=== PATIENT | female | born 1930 | race Caucasian/White ===

== ENCOUNTER → 2018-04-20 | Day surgery (SDC) | payer OTHER ==
[2018-04-16 15:55] LABS: BASOPHILS % 0.4 % (0.0-1.0); EOSINOPHILS # (AUTO) 0.2 (0.0-0.4); EOSINOPHILS % 2.1 % (0.0-6.0); HEMATOCRIT 32.5 % (34.2-44.1); HEMOGLOBIN 10.6 g/dL (12.0-16.0); LYMPHOCYTES % 25.8 % (18.0-39.1); MEAN CORPUSCULAR HEMOGLOBIN 32.8 pg (28-32); MEAN CORPUSCULAR HGB CONC 32.6 g/dL (31-35); MEAN CORPUSCULAR VOLUME 100.6 fL (81-99); MONOCYTES # (AUTO) 0.8 (0.2-0.8); MONOCYTES % 10.6 % (4.4-11.3); NEUTROPHILS # (AUTO) 4.6 (2.1-6.9); NEUTROPHILS % 60.8 % (38.7-80.0); PLATELET COUNT 255 x10e3/uL (140-360); RED BLOOD COUNT 3.23 x10e6/uL (3.6-5.1); RED CELL DISTRIBUTION WIDTH 13.8 % (11.7-14.4)
--- NOTE | 2018-04-16 16:21 | Diagnostic Imaging Report ---
PROCEDURE: Frontal and lateral views of the chest. COMPARISON: None. INDICATIONS: PREOP CXR FINDINGS: Lines/tubes: Right chest wall pacemaker with leads overlying the right atrium and right ventricular apex. Lungs: The lungs are well inflated and clear. There is no evidence of pneumonia or pulmonary edema. A 9 mm sharply defined opacity projected over the left lung may represent a calcified granuloma or a skin lesion. A surgical clip is projected over the left axillary region Pleura: There is no pleural effusion or pneumothorax. Heart and mediastinum: Normal heart size. Mild tortuosity of the thoracic aorta. Bones: Multilevel spondylosis of the thoracic spine. Cervical fusion hardware is partially visualized. Severe degenerative changes of the shoulders, right greater than left. IMPRESSION: No evidence of infection or edema. 9 mm opacity projected over the left midlung probably represents a benign granuloma or skin lesion. Consider follow up radiographs in 3-6 months to ensure stability. Dictated by: Gaudencio Mcgrath M.D. on 04/16/2018 at 16:25 Electronically approved by: Gaudencio Mcgrath M.D. on 04/16/2018 at 16:25
[~2018-04-20] MED LIST: AMLODIPINE BES2.5 MG PO; ASPIRIN81 MG PO; BIOTIN2500 MCG PO; BUPIVACAINE HCL 0.5% INJ 30 ML VIAL INJ ONE; CEFAZOLIN SOD 1 GM VIAL ONE; CENTRUM SILVER1 EAC3 PO; DEXAMETHASONE SOD PHOS INJ 4 MG/ML VIAL ONE; FENTANYL CITRATE/PF 100MCG/2 ML INJ ONE; LEVOTHYROXINE50 MCG PO; LIDOCAINE HCL 2% LOCAL INJ 5 ML SDV VIAL INJ ONE; LYRICA50 MG PO; MUPIROCIN 2% OINT 22 GM TUBE ONE; ONDANSETRON HCL INJ 2 MG/ML VIAL ONE; PRAMIPEXOLE D0.25 MG PO; PROPOFOL IV EMULSION 10 MG/ML 20 ML VIAL ONE; SEVOFLURANE INHAL SOLN 250 ML PEN BTL ONE; TYLENOL WITH C1 EACH PO; VITAMIN B12 PO
--- NOTE | 2018-04-22 13:47 | Operative Report ---
DATE OF PROCEDURE: April 20, 2018 PREOPERATIVE DIAGNOSES 1. Ulnar nerve cubital tunnel syndrome, left side. 2. Carpal tunnel syndrome, left side. POSTOPERATIVE DIAGNOSES 1. Ulnar nerve cubital tunnel syndrome, left side. 2. Carpal tunnel syndrome, left side. 3. Flexor tenosynovitis, left wrist. PROCEDURES 1. Right ulnar nerve transposition. 2. Flexor pronator muscle flap. 3. Right open carpal tunnel release. 2. Flexor tenosynovectomy, right wrist. ANESTHESIA: General. 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 The risks, benefits, and alternatives of treatment were discussed with the patient, and he is prepared to undergo the procedures outlined. PROCEDURE: The patient was brought to the operating theater and after the induction of adequate general inhalation anesthesia and was prepped and draped in a supine position. A timeout was performed by the entire operating room team. An incision was marked out from the medial epicondyle extending both proximally and distally for approximately 4-5 cm in the left limb. The left upper extremity was exsanguinated and the tourniquet was inflated to a pressure of 250 mmHg. The incision was made through the skin and subcutaneous tissues, and all venous tributaries were controlled using the electrocautery. The incision was deepened through the subcutaneous tissue, and all the sensory medial antebrachial cutaneous branches that were identified were protected and preserved throughout the dissection. At this point, the dissection was continued directly onto the medial epicondyle. The skin and subcutaneous tissues were then elevated off the medial epicondyle and the flexor pronator muscle mass. Proximal to the medial epicondyle the intramuscular septum was identified and the ulnar nerve was identified just posterior to the intramuscular septum. The overlying tissue over the ulnar nerve was gently incised, taking care to protect and preserve the ulnar nerve. With the ulnar nerve in site, the overlying tissue was incised from proximal to distal through the cubital tunnel releasing the compressing structures of the ulnar nerve. At the distal aspect of the cubital tunnel, the flexor pronator muscle mass was divided and the dissection of the ulnar nerve continued until the 1st and 2nd muscular branches were identified. At this point, the medial epicondyle was marked out and an incision approximately 1.5 cm from the epicondyle was made through the fascial and muscular tissues using the electrocautery. Hemostasis was made absolute using the electrocautery. The entire flexor pronator muscle mass was elevated out of its bed in order to allow transposition of the nerve. The nerve was then gently elevated out of the cubital tunnel using a Alfred drain for traction. The posterior attachments were released and the nerve was then transposed anteriorly. The transposition was noted to provide adequate relief of tension from the compressing structures on the nerve. The medial intramuscular septum was excised from the medial epicondyle and for a distance of several centimeters proximally in order to prevent compression. With the nerve transposed submuscularly, the elbow was placed through a range of motion and there was noted to be good gliding of the nerve and no kinking or acuity throughout its course. At this point, the flexor pronator muscle mass was repaired to the cuff of tissue on the medial epicondyle using 2-0 Vicryl in an interrupted horizontal mattress fashion. The elbow was placed through a range of motion again and the nerve was visualized and there was noted to be no compression. A 2.5-cm incision was marked out in the intrathenar space. The incision was deepened through the palmar fascia until the transverse carpal ligament was identified. The ligament was sharply sectioned, taking care to protect and preserve the median nerve underlying it. After the complete width of the ligament had been transected, the distal volar forearm fascia was divided under direct view. Proliferative flexor tenosynovium was noticed to encompass the median nerve and this was radically excised. After performing this maneuver, the nerve was noted to lie adequately decompressed. The wound was then copiously irrigated with bacteriostatic saline and closed in layers. A 4-0 Vicryl was used in an interrupted buried fashion to approximate the deep dermis and 5-0 nylon was used in an interrupted horizontal mattress fashion. A Marcaine field block was performed at the operative site. The tourniquet was deflated. All the fingers pinked up nicely and a sterile bulky conforming bandage was applied from the axilla to the hand. A fiberglass splint was fashioned to maintain the elbow at approximately 90 degrees of flexion and this was held in place with a loosely wrapped Tai wrap. The estimated blood loss of the procedure was negligible. The patient tolerated the procedure well and was brought to the recovery room in satisfactory condition and discharged with a postoperative instruction sheet as well as a follow-up appointment. Job#: [id number] NICOL
== END | disposition home or self-care (01) ==
LOC: OR 06:16
PROVIDERS: ATTEND Plastic Surgery
DX: G56.22 Lesion of ulnar nerve, left upper limb (principal); G56.02 Carpal tunnel syndrome, left upper limb; M65.842 Other synovitis and tenosynovitis, left hand; I10 Essential (primary) hypertension; Z01.810 Encounter for preprocedural cardiovascular examination; Z01.812 Encounter for preprocedural laboratory examination; Z01.818 Encounter for other preprocedural examination; Z79.82 Long term (current) use of aspirin; Z95.0 Presence of cardiac pacemaker
CPT/HCPCS: 25115; 36415; 64718; 71046; 85025; 93005; J0690; J1100; J2001; J2405

== ENCOUNTER 2018-12-22 12:24 | Outpatient (RCR) | payer OTHER ==
[~2018-12-22 12:24] MED LIST changes: -BUPIVACAINE HCL 0.5% INJ 30 ML VIAL INJ ONE; -CEFAZOLIN SOD 1 GM VIAL ONE; -DEXAMETHASONE SOD PHOS INJ 4 MG/ML VIAL ONE; -FENTANYL CITRATE/PF 100MCG/2 ML INJ ONE; -LIDOCAINE HCL 2% LOCAL INJ 5 ML SDV VIAL INJ ONE; -MUPIROCIN 2% OINT 22 GM TUBE ONE; -ONDANSETRON HCL INJ 2 MG/ML VIAL ONE; -PROPOFOL IV EMULSION 10 MG/ML 20 ML VIAL ONE; -SEVOFLURANE INHAL SOLN 250 ML PEN BTL ONE
[2018-12-22] MEDS ORDERED: MUPIROCIN 2% OINT 22 GM TUBE ONE (18:50)
[2018-12-22] MEDS ORDERED: MINERAL OIL/PETROLAT/GLYCERI 6OZ BTL ONE (18:50)
[2018-12-22] MEDS ORDERED: LIDOCAINE VISC 2% SOLN 15 ML UDC ONE (18:50)
== END 2018-12-26 ==
LOC: WCC 12:24
PROVIDERS: ATTEND Family Medicine
DX: I87.331 Chronic venous hypertension (idiopathic) with ulcer and inflammation of right lower extremity (principal); L97.811 Non-pressure chronic ulcer of other part of right lower leg limited to breakdown of skin; I87.2 Venous insufficiency (chronic) (peripheral); R60.0 Localized edema; I10 Essential (primary) hypertension; G90.09 Other idiopathic peripheral autonomic neuropathy; E03.9 Hypothyroidism, unspecified
CPT/HCPCS: 87071; 87075; 87186; 87205

== ENCOUNTER 2019-01-12 12:15 | Outpatient (RCR) | payer OTHER ==
[~2019-01-12 12:15] MED LIST changes: +LIDOCAINE VISC 2% SOLN 15 ML UDC ONE; +MUPIROCIN 2% OINT 22 GM TUBE ONE
[2019-01-12] MEDS ORDERED: LIDOCAINE/PRILOCAINE 2.5-2.5% KIT ONE (16:31)
[2019-01-12] MEDS ORDERED: MUPIROCIN 2% OINT 22 GM TUBE ONE (16:31)
== END 2019-01-25 ==
LOC: WCC 12:15
PROVIDERS: ATTEND Family Medicine
DX: I87.331 Chronic venous hypertension (idiopathic) with ulcer and inflammation of right lower extremity (principal); L97.811 Non-pressure chronic ulcer of other part of right lower leg limited to breakdown of skin; I87.2 Venous insufficiency (chronic) (peripheral); R60.0 Localized edema; G90.09 Other idiopathic peripheral autonomic neuropathy; I10 Essential (primary) hypertension; B96.89 Other specified bacterial agents as the cause of diseases classified elsewhere; E03.9 Hypothyroidism, unspecified

== ENCOUNTER → 2019-01-26 | Outpatient (CLI) | payer OTHER ==
[~2019-01-26] MED LIST changes: -LIDOCAINE VISC 2% SOLN 15 ML UDC ONE; -MUPIROCIN 2% OINT 22 GM TUBE ONE
== END ==
LOC: WCC 12:01
PROVIDERS: ATTEND Family Medicine
DX: I87.331 Chronic venous hypertension (idiopathic) with ulcer and inflammation of right lower extremity (principal); L97.811 Non-pressure chronic ulcer of other part of right lower leg limited to breakdown of skin; E03.9 Hypothyroidism, unspecified; G90.09 Other idiopathic peripheral autonomic neuropathy; I10 Essential (primary) hypertension; I87.2 Venous insufficiency (chronic) (peripheral); R60.0 Localized edema

== ENCOUNTER 2019-03-02 14:06 | Inpatient (IN) | payer OTHER ==
[~2019-03-02] VITALS: Ht 149.9 cm; Wt 60.0 kg
--- OUTSIDE RECORDS SUMMARY | 2019-03-02 14:09 | XMS REPORT | Summary of Care ---
Author Author [facility] Organization [facility] Address Unknown Phone Unavailable Encounter HQ Thalia(FIN) [id number] Date(s): 03/11/18 - 03/11/18 [facility] [address] [place] [address]- [phone] Encounter Diagnosis N&V (nausea and vomiting) (Discharge Diagnosis) - 03/11/18 Radiculopathy (Discharge Diagnosis) - 03/11/18 Discharge Disposition: Home or Self Care Attending Physician: Chandler Ambriz MD Vital Signs 1 2 3 Most recent to oldest [Reference Range]: 149.86 cm (03/11/18 1:56 PM) Height 97.9 DegF (03/11/18 8:45 PM) 97.9 DegF (03/11/18 7:00 PM) 99.0 DegF (03/11/18 5:24 PM) Temperature Oral [96.4-99.1 DegF] 170/75 mmHg *HI* (03/11/18 8:45 PM) 174/88 mmHg *HI* (03/11/18 8:00 PM) 171/78 mmHg *HI* (03/11/18 7:00 PM) Blood Pressure [90-140/60-90 mmHg] 19 BRMIN (03/11/18 8:45 PM) 18 BRMIN (03/11/18 8:00 PM) 18 BRMIN (03/11/18 7:00 PM) Respiratory Rate [14-20 BRMIN] 88 bpm (03/11/18 8:45 PM) 90 bpm (03/11/18 8:00 PM) 92 bpm (03/11/18 7:00 PM) Peripheral Pulse Rate [60-100 bpm] 61.364 kg (03/11/18 1:56 PM) Weight 27.32 m2 (03/11/18 1:56 PM) Body Mass Index Problem List Condition Effective Dates Status Health Status Informant Arthritis(Confirmed) Resolved Breast ca(Confirmed) Resolved Hyperlipidemia(Confi Resolved rmed) Hypothyroidism(Confi Resolved rmed) Allergies, Adverse Reactions, Alerts Substance Reaction Severity Status NKDA Active Medications dexamethasone 4 mg, Route: IVP, ONCE, Dosing Weight 61.364, kg, Priority: STAT, Start date: 20:21:00 CDT, Stop date: 03/11/18 20:21:00 CDT Start Date: 03/11/18 Stop Date: 03/11/18 Status: Completed fentaNYL 50 microgram, 1 mL, Route: IVP, Drug form: INJ, ONCE, Dosing Weight 61.364, kg, Priority: STAT, Start date: 03/11/18 18:46:00 CDT, Stop date: 03/11/18 18:46:00 CDT Notes: (Same as: Sublimaze) Preservative free. Start Date: 03/11/18 Stop Date: 03/11/18 Status: Completed Zofran 4 mg, 2 mL, Route: IVP, Drug form: INJ, ONCE, Dosing Weight 61.364, kg, Priority : STAT, Start date: 03/11/18 18:46:00 CDT, Stop date: 03/11/18 18:46:00 CDT Notes: (Same as: Zofran) MEDICATION WASTE Product Size: 4 mgProduct Was eddy: ___ mg Start Date: 03/11/18 Stop Date: 03/11/18 Status: Completed Zofran ODT 4 mg oral tablet, disintegrating 4 mg=1 tab, PO, BID, PRN Nausea and Vomiting, Dissolve tab under tongue, # 10 ta b, 0 Refill(s) Start Date: 03/11/18 Stop Date: 03/16/18 Status: Ordered Results ELECTROLYTES Most recent to 1 oldest [Reference Range]: Sodium Lvl [135-145 139 mEq/L mEq/L] (03/11/18 7:36 PM) Potassium Lvl 4.4 mEq/L [3.5-5.1 mEq/L] (03/11/18 7:36 PM) Chloride Lvl [95-109 101 mEq/L mEq/L] (03/11/18 7:36 PM) CO2 [24-32 mEq/L] 28 mEq/L (03/11/18 7:36 PM) AGAP [10.0-20.0 14.4 mEq/L mEq/L] (03/11/18 7:36 PM) CHEM PANEL Most recent to 1 oldest [Reference Range]: Creatinine Lvl 1.31 mg/dL [0.50-1.40 mg/dL] (03/11/18 7:36 PM) eGFR 37 mL/min/1.73m2 1 *NA* (03/11/18 7:36 PM) BUN [7-22 mg/dL] 32 mg/dL *HI* (03/11/18 7:36 PM) B/C Ratio [6-25] 24 (03/11/18 7:36 PM) Glucose Lvl [70-99 126 mg/dL mg/dL] *HI* (03/11/18 7:36 PM) Total Protein 8.9 g/dL [6.4-8.4 g/dL] *HI* (03/11/18 7:36 PM) Albumin Lvl [3.5-5.0 4.2 g/dL g/dL] (03/11/18 7:36 PM) Globulin [2.7-4.2 4.7 g/dL g/dL] *HI* (03/11/18 7:36 PM) A/G Ratio [0.7-1.6] 0.9 (03/11/18 7:36 PM) Calcium Lvl 9.8 mg/dL [8.5-10.5 mg/dL] (03/11/18 7:36 PM) ALT [0-65 unit/L] 25 unit/L (03/11/18 7:36 PM) AST [0-37 unit/L] 21 unit/L (03/11/18 7:36 PM) Alk Phos [39-136 107 unit/L unit/L] (03/11/18 7:36 PM) Bili Total [0.2-1.3 0.4 mg/dL mg/dL] (03/11/18 7:36 PM) Lipase Lvl [73-393 98 unit/L unit/L] (03/11/18 7:36 PM) 1Result Comment: The eGFR is calculated using the CKD-EPI formula. In most young, healthy individuals the eGFR will be >90 mL/min/1.73m2. The eGFR declines with age. An eGFR of 60-89 may be normal in some populations, particularly the elderly, for whom the CKD-EPI formula has not been extensively validated. Use of the eGFR is not recommended in the following populations: Individuals with unstable creatinine concentrations, including patients and those with serious co-morbid conditions. Patients with extremes in muscle mass or diet. The data above are obtained from the National Kidney Disease Education Program ( NKDEP) which additionally recommends that when the eGFR is used in patients with extremes of body mass index for purposes of drug dosing, the eGFR should be mul tiplied by the estimated BMI. CARDIAC ENZYMES Most recent to 1 oldest [Reference Range]: Troponin-I 0.04 ng/mL [0.00-0.40 ng/mL] (03/11/18 7:36 PM) HEMATOLOGY Most recent to 1 oldest [Reference Range]: WBC [3.7-10.4 K/CMM] 9.3 K/CMM (03/11/18 7:36 PM) RBC [4.20-5.40 4.27 M/CMM M/CMM] (03/11/18 7:36 PM) Hgb [12.0-16.0 g/dL] 14.2 g/dL (03/11/18 7:36 PM) Hct [36.0-48.0 %] 42.5 % (03/11/18 7:36 PM) MCV [80.0-98.0 fL] 99.5 fL *HI* (03/11/18 7:36 PM) MCH [27.0-31.0 pg] 33.4 pg *HI* (03/11/18 7:36 PM) MCHC [32.0-36.0 33.5 g/dL g/dL] (03/11/18 7:36 PM) RDW [11.5-14.5 %] 14.1 % (03/11/18 7:36 PM) MPV [7.4-10.4 fL] 8.7 fL (03/11/18 7:36 PM) Platelet [133-450 258 K/CMM K/CMM] (03/11/18 7:36 PM) Segs [45.0-75.0 %] 78.7 % *HI* (03/11/18 7:36 PM) Lymphocytes 15.0 % [20.0-40.0 %] *LOW* (03/11/18 7:36 PM) Monocytes [2.0-12.0 5.8 % %] (03/11/18 7:36 PM) Eosinophils [0.0-4.0 0.1 % %] (03/11/18 7:36 PM) Basophils [0.0-1.0 0.4 % %] (03/11/18 7:36 PM) Segs-Bands # 7.4 K/CMM [1.5-8.1 K/CMM] (03/11/18 7:36 PM) Lymphocytes # 1.4 K/CMM [1.0-5.5 K/CMM] (03/11/18 7:36 PM) Monocytes # [0.0-0.8 0.5 K/CMM K/CMM] (03/11/18 7:36 PM) Macrocyte [None 1+ Seen] *ABN* (03/11/18 7:36 PM) Immunizations Given and Recorded Vaccine Date Status Refusal Reason pneumococcal 23-valent vaccine 10/09/15 Given Procedures Procedure Date Related Diagnosis Body Site Status 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 Completed Cataract surgery Completed Foot joint operations Completed Social History Social History Type Response Alcohol Never Smoking Status Never smoker; Type: Cigars; Exposure to Tobacco Smoke None; Cigarette Smoking Last 365 Days No; Reg Smoking Cessation Counseling No entered on: 03/11/18 Assessment and Plan No data available for this section
--- OUTSIDE RECORDS SUMMARY | 2019-03-02 14:09 | XMS REPORT | Continuity of Care Document ---
Author Author [facility] Interface Address Unknown Phone Unavailable Problems Problem Status Onset Date Classification Date Reported Comments Source SYNCOPE/ALANA Active 11/12/2018 [facility] SYNCOPE Active 11/12/2018 [facility] SYNCOPE,CKD(CHRONIC KIDNEY DISEASE) Active 09/30/2018 [facility] SYNCOPE, CKD Active 09/30/2018 [facility] FALL Active 09/30/2018 [facility] N&V 03/11/2018 03/14/2018 [facility] Radiculopathy 03/11/2018 03/14/2018 [facility] ARM PAIN Active 03/11/2018 [facility] Sprain of left acromioclavicular joint, initial encounter 11/13/2017 02/14/2018 [facility] Acromioclavicular sprain 11/08/2017 02/14/2018 [facility] 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 04/06/2017 [facility] 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; OTHER INTERVERTEBRAL DISC DISPLA Active 12/12/2015 [facility] Arthritis Resolved Problem 11/15/2018 [facility] Breast ca Resolved Problem 11/15/2018 [facility] Hyperlipidemia Resolved Problem 11/15/2018 [facility] Hypothyroidism Resolved Problem 11/15/2018 [facility] Primary osteoarthritis, left shoulder 02/14/2018 [facility] Essential hypertension 02/14/2018 [facility] Polyneuropathy, unspecified 02/14/2018 [facility] Presence of cardiac pacemaker 02/14/2018 [facility] Personal history of malignant neoplasm of breast 02/14/2018 [facility] Acquired absence of left breast and nipple 02/14/2018 [facility] Other ocean transportation intermediary drug therapy Active Problem 10/28/2018 [facility] Piriformis syndrome of right side Active Problem 10/28/2018 [facility] Z[facility] Ischiogluteal bursitis Active Problem 10/28/2018 Patrick Z[facility] Piriformis syndrome of left side Active Problem 10/28/2018 Patrick Zaman Polyarthritis Active Diagnosis 10/28/2018 Patrick Z[facility] Bursitis of hip Active Problem 10/28/2018 [facility] Gluteal tendinitis, right hip Active Problem 10/28/2018 [facility] Z[facility] Gluteal tendinitis, left hip Active Problem 10/28/2018 [facility] Z[facility] Leg pain Active Diagnosis 10/28/2018 Patrick Zaman OTHER INTERVERTEBRAL DISC DISPLACEMENT, Active [facility] SYNCOPE AND COLLAPSE Active [facility] CHRONIC KIDNEY DISEASE, UNSPECIFIED Active [facility] Medications Medication Details Route Status Patient Instructions Ordering Provider Order Date Source remove patch Route: TOP, Bedtime, Drug form: ERFILM, Start date: 11/13/18 21:00:00 MANAGER WELDING, Duration: 30 day, Stop date: 12/12/18 21:00:00 CDTNotes: Remove patch 12 hours after application each day. Inactive 11/14/2018 [facility] Lidocaine 0.05 MG/MG Transdermal Patch 2 patch, Route: TOP, Daily, Drug form: FILM, Start date: 11/13/18 14:30:00 MANAGER WELDING, Duration: 30 day, Stop date: 12/13/18 9:00:00 CDTNotes: Apply only once for up to 12 hours in a 24-hour period (12 hours on and 12 hours off). (Same as: Lidoderm) "Remove old patch before application of new patch" Inactive 11/13/2018 [facility] Lidocaine 0.05 MG/MG Transdermal Patch 2 patch, TOP, Daily, # 28 patch, 0 Refill(s), Pharmacy: [facility] [id number] Active 11/13/2018 [facility] Pramipexole 0.25 mg, 2 tab, Route: PO, Drug form: TAB, Daily, Dosing Weight 61.818, kg, Start date: 11/13/18 9:00:00 MANAGER WELDING, Duration: 30 day, Stop date: 12/12/18 9:00:00 CDTNotes: (Same as: Mirapex) Inactive 11/13/2018 [facility] Amlodipine 2.5 mg, 1 tab, Route: PO, Drug form: TAB, Daily, Dosing Weight 61.818, kg, Start date: 11/13/18 9:00:00 MANAGER WELDING, Duration: 30 day, Stop date: 12/12/18 9:00:00 CDTNotes: (Same as: Norvasc) Inactive 11/13/2018 [facility] Aspirin 81 MG Enteric Coated Tablet 81 mg, 1 tab, Route: PO, Drug form: ECTAB, Daily, Dosing Weight 61.818, kg, Start date: 11/13/18 9:00:00 MANAGER WELDING, Duration: 30 day, Stop date: 12/12/18 9:00:00 CDTNotes: Do not crush or chew. (Same As: Ecotrin) Inactive 11/13/2018 [facility] Protonix 40 mg, 1 tab, Route: PO, Drug form: ECTAB, Daily, Dosing Weight 61.818, kg, Start date: 11/13/18 9:00:00 MANAGER WELDING, Duration: 30 day, Stop date: 12/12/18 9:00:00 CDTNotes: Tablet should not be chewed or crushed. (Same as: Protonix) Inactive 11/13/2018 [facility] Ergocalciferol 50,000 IntlUnit, 1 cap, Route: PO, Drug form: CAP, Daily, Dosing Weight 61.818, kg, Start date: 11/13/18 9:00:00 MANAGER WELDING, Duration: 3 day, Stop date: 11/15/18 9:00:00 CSTNotes: (Same as: Vitamin D) "Do Not Crush" Inactive 11/13/2018 [facility] Lyrica 50 mg, 1 cap, Route: PO, Drug form: CAP, Daily, Dosing Weight 61.818, kg, Start date: 11/13/18 9:00:00 MANAGER WELDING, Duration: 30 day, Stop date: 12/12/18 9:00:00 CDTNotes: Same as Lyrica Inactive 11/13/2018 [facility] Thyroxine 50 microgram, 1 tab, Route: PO, Drug form: TAB, Q630AM, Dosing Weight 61.818, kg, Start date: 11/13/18 6:30:00 MANAGER WELDING, Duration: 30 day, Stop date: 12/12/18 6:30:00 CDTNotes: Take 1 hour before or 2 hours after meal; Enteral feeds may interefere with the absorption of this medication.(Same as:Levothroid, Synthroid) Inactive 11/13/2018 [facility] Acetaminophen 300 MG / Codeine Phosphate 30 MG Oral Tablet [Tylenol with Codeine #3] 1 tab, PO, Q6H, PRN Pain, 0 Refill(s) Active 11/12/2018 [facility] Nitroglycerin 0.4 MG Sublingual Tablet [Nitrostat] 0.4 mg, 1 tab, Route: SL, Drug form: TAB, Q5Min, Dosing Weight 61.818, kg, PRN Chest Pain, Start date: 11/12/18 13:49:00 MANAGER WELDING, Duration: 3 doses or times, Stop date: Limited # of timesNotes: (Same as:Nitroquick, Nitrostat) "Do Not Crush" Sublingual tablet No Longer Active 11/12/2018 [facility] Terbutaline 0.25 mg, 0.25 mL, Route: SUB-Q, Drug form: INJ, Q6H, Dosing Weight 61.818, kg, PRN Bradycardia, Start date: 11/12/18 13:49:00 MANAGER WELDING, Duration: 30 day, Stop date: 12/12/18 13:48:00 CDTNotes: 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 (Same As: Brethine) No Longer Active 11/12/2018 [facility] Lopressor 2.5 mg, 2.5 mL, Route: IVP, Drug form: INJ, Q3H, Dosing Weight 61.818, kg, PRN Tachycardia, Start date: 11/12/18 13:49:00 MANAGER WELDING, Duration: 30 day, Stop date: 12/12/18 13:48:00 CDTNotes: (Same as: Lopressor) Push over 2 minutes No Longer Active 11/12/2018 [facility] Morphine 2 mg, 1 mL, Route: IVP, Drug form: SOLN, Q2H, Dosing Weight 61.818, kg, PRN Chest Pain, Start date: 11/12/18 13:49:00 MANAGER WELDING, Duration: 30 day, Stop date: 12/12/18 13:48:00 CDT No Longer Active 11/12/2018 [facility] Hydralazine 10 mg, Route: IV, Q4H, Dosing Weight 61.818, kg, PRN Hypertension, Start date: 11/12/18 13:49:00 MANAGER WELDING, Duration: 30 day, Stop date: 12/12/18 13:48:00 CDT Inactive 11/12/2018 [facility] NS 1,000 mL 1,000 mL, Rate: 75 ml/hr, Infuse over: 13.3 hr, Route: IV, Dosing Weight 61.818 kg, Total Volume: 1,000, Start date: 11/12/18 13:33:00 MANAGER WELDING, Duration: 30 day, Stop date: 12/12/18 13:32:00 CDT, 1.64, m2 No Longer Active 11/12/2018 [facility] Maalox Advanced Regular Strength SUSP 30 mL, Route: PO, Drug Form: SUSP, Dosing Weight 61.818, kg, QID-After Meals, PRN as needed for indigestion, Routine, Start date: 11/12/18 13:31:00 MANAGER WELDING, Duration: 30 day, Stop date: 12/12/18 13:30:00 CDTNotes: (aluminum hydroxide-magnesium hyd-simethicone [phone]/5ml 30 ml ud YESSENIA) No Longer Active 11/12/2018 [facility] Simethicone 80 mg, 1 tab, Route: CHEW, Drug form: CHEWTAB, QID-After Meals, Dosing Weight 61.818, kg, PRN as needed for gas, Start date: 11/12/18 13:31:00 MANAGER WELDING, Duration: 30 day, Stop date: 12/12/18 13:30:00 CDTNotes: (Same as: Mylicon) No Longer Active 11/12/2018 [facility] Mucinex 600 mg, 1 tab, Route: PO, Drug form: ERTAB, Q12H, Dosing Weight 61.818, kg, PRN Congestion, Start date: 11/12/18 13:31:00 MANAGER WELDING, Duration: 30 day, Stop date: 12/12/18 13:30:00 CDTNotes: (Same as: Guaifenesin LA, Humibid LA, Mucinex) "Do Not Crush" Take medication with plenty of water. No Longer Active 11/12/2018 [facility] Nicotine 21 mg, 1 patch, Route: TOP, Drug form: ERFILM, Daily, Dosing Weight 61.818, kg, PRN as needed for smoking cessation, Start date: 11/12/18 13:31:00 MANAGER WELDING, Duration: 30 day, Stop date: 12/12/18 13:30:00 CDT Notes: (Same as: Habitrol) "Remove old patch before application of new patch" WASTE: F/P - P Waste Black; E - P Waste Black No Longer Active 11/12/2018 [facility] Seroquel 25 mg, 1 tab, Route: PO, Drug form: TAB, BID, Dosing Weight 61.818, kg, PRN Agitation, Start date: 11/12/18 13:31:00 MANAGER WELDING, Duration: 30 day, Stop date: 12/12/18 13:30:00 CDTNotes: (Same as: SEROquel) No Longer Active 11/12/2018 [facility] Hydralazine 10 mg, 0.5 mL, Route: IVP, Drug form: INJ, Q4H, Dosing Weight 61.818, kg, PRN Hypertension, Priority: Routine, Start date: 11/12/18 13:31:00 MANAGER WELDING, Duration: 30 day, Stop date: 12/12/18 13:30:00 CDTNotes: (Same as: Apresoline) Push over 5 minutes No Longer Active 11/12/2018 [facility] Tessalon Perles 100 mg, 1 cap, Route: PO, Drug form: CAP, TID, Dosing Weight 61.818, kg, PRN Cough, Start date: 11/12/18 13:31:00 MANAGER WELDING, Duration: 30 day, Stop date: 12/12/18 13:30:00 CDTNotes: (Same As: Tessalon Ramiro es) "Do Not Crush" No Longer Active 11/12/2018 [facility] Morphine 2 mg, 1 mL, Route: IVP, Drug form: SOLN, Q4H, Dosing Weight 61.818, kg, PRN Pain Score 7-10, Start date: 11/12/18 13:31:00 MANAGER WELDING, Duration: 30 day, Stop date: 12/12/18 13:30:00 CDT No Longer Active 11/12/2018 [facility] Robitussin-AC oral syrup 10 ml, Route: PO, Drug Form: LIQ, Dosing Weight 61.818, kg, Q4H, PRN Cough/Congestion, Start date: 11/12/18 13:31:00 MANAGER WELDING, Duration: 30 day, Stop date: 12/12/18 13:30:00 CDTNotes: (Same As: Robitussin AC) No Longer Active 11/12/2018 [facility] Acetaminophen 325 MG / Hydrocodone Bitartrate 5 MG Oral Tablet [[place] 5/325] 1 tab, Route: PO, Drug Form: TAB, Dosing Weight 61.818, kg, Q6H, PRN Pain Score 1-3, Start date: 11/12/18 13:31:00 MANAGER WELDING, Duration: 30 day, Stop date: 12/12/18 13:30:00 CDTNotes: (Same as: [place] 325/5) Do not exceed 4gm/day of acetaminophen. No Longer Active 11/12/2018 [facility] Acetaminophen 650 mg, 2 tab, Route: PO, Drug form: TAB, Q6H, Dosing Weight 61.818, kg, PRN For Temp > 100.4 F, Start date: 11/12/18 13:31:00 MANAGER WELDING, Duration: 30 day, Stop date: 12/12/18 13:30:00 CDTNotes: Do not exceed 4 gm/day. (Same as: Tylenol) No Longer Active 11/12/2018 [facility] Diphenhydramine 25 mg, 0.5 mL, Route: PO, Drug form: INJ, Q6H, Dosing Weight 61.818, kg, PRN as needed for allergy symptoms, Start date: 11/12/18 13:31:00 MANAGER WELDING, Duration: 30 day, Stop date: 12/12/18 13:30:00 CDTNotes: (Same as: Benadryl) No Longer Active 11/12/2018 [facility] Ondansetron 4 mg, 2 mL, Route: IVP, Drug form: INJ, Q6H, Dosing Weight 61.818, kg, PRN Nausea & Vomiting, Start date: 11/12/18 13:31:00 MANAGER WELDING, Duration: 30 day, Stop date: 12/12/18 13:30:00 CDTNotes: (Same as: Zofran) MEDICATION WASTE Product Size: 4 mg Product Wasted: ___ mg No Longer Active 11/12/2018 [facility] Bisacodyl 10 mg, 1 supp, Route: GA, Drug form: SUPP, Daily, Dosing Weight 61.818, kg, PRN Constipation, Start date: 11/12/18 13:31:00 MANAGER WELDING, Duration: 30 day, Stop date: 12/12/18 13:30:00 CDTNotes: (Same As: Dulcolax, Bisco-Lax) No Longer Active 11/12/2018 [facility] POLYETHYLENE GLYCOL 3350 17 gm, 1 pkt, Route: PO, Drug form: PWDR, Daily, Dosing Weight 61.818, kg, PRN Constipation, Start date: 11/12/18 13:31:00 MANAGER WELDING, Duration: 30 day, Stop date: 12/12/18 13:30:00 CDTNotes: Dissolve in 8 oz of water or juice. (Same as: Miralax) No Longer Active 11/12/2018 [facility] Trazodone 50 mg, 1 tab, Route: PO, Drug form: TAB, Bedtime, Dosing Weight 61.818, kg, PRN Insomnia, Start date: 11/12/18 13:31:00 MANAGER WELDING, Duration: 30 day, Stop date: 12/12/18 13:30:00 CDTNotes: (Same As: Desyrel) No Longer Active 11/12/2018 [facility] Melatonin 3 mg, 1 tab, Route: PO, Drug form: TAB, Bedtime, Dosing Weight 61.818, kg, PRN Insomnia, Start date: 11/12/18 13:31:00 MANAGER WELDING, Duration: 30 day, Stop date: 12/12/18 13:30:00 CDTNotes: (Same as: Melatonin) No Longer Active 11/12/2018 [facility] Dextrose 50% Syringe 25 gm, 50 mL, Route: IVP, Drug Form: INJ, Dosing Weight 61.818, kg, PRN, PRN Blood Glucose Results, Start date: 11/12/18 13:31:00 MANAGER WELDING, Duration: 30 day, Stop date: 12/12/18 14:30:00 CDT No Longer Active 11/12/2018 [facility] Docusate 100 mg, 1 cap, Route: PO, Drug form: CAP, BID, Dosing Weight 61.818, kg, PRN as needed for constipation, Start date: 11/12/18 13:31:00 MANAGER WELDING, Duration: 30 day, Stop date: 12/12/18 13:30:00 CDTNotes: (Same as: Colace) (Do Not Crush) No Longer Active 11/12/2018 [facility] Glucagon 1 mg, Route: IM, Drug form: PDR/INJ, PRN, Dosing Weight 61.818, kg, PRN Blood Glucose Results, Start date: 11/12/18 13:31:00 MANAGER WELDING, Duration: 30 day, Stop date: 12/12/18 14:30:00 CDT No Longer Active 11/12/2018 [facility] Saline Flush 0.9% 10 mL, Route: IVP, Drug Form: INJ, Dosing Weight 68.182, kg, PRN, PRN Line Flush, Start date: 11/12/18 9:29:00 MANAGER WELDING, Duration: 30 day, Stop date: 12/12/18 10:28:00 CDTNotes: (Same as: BD Posiflush) Inactive 11/12/2018 [facility] Sodium Chloride 0.9% (Bolus) IV 500 mL, 500 ml/hr, Infuse Over: 1 hr, Route: IV, 500, Drug form: INJ, ONCE, Priority: STAT, Dosing Weight 68.182 kg, Start date: 11/12/18 9:29:00 MANAGER WELDING, Stop date: 11/12/18 9:29:00 MANAGER WELDING Inactive 11/12/2018 [facility] PredniSONE 1-2 tabs prn only Orally Active 5 MG Orally Once a day Deedee 07/19/2018 [facility] PredniSONE 10mg x 1wk, 5mg x 1wk, 2.5mg x 1wk Orally Active 5 MG Orally Once a day Deedee 06/07/2018 [facility]alezer Ondansetron 4 MG Disintegrating Tablet [Zofran] 4 mg=1 tab, PO, BID, PRN Nausea and Vomiting, Dissolve tab under tongue, # 10 tab, 0 Refill(s) Active 03/12/2018 [facility] Dexamethasone 4 mg, Route: IVP, ONCE, Dosing Weight 61.364, kg, Priority: STAT, Start date: 03/11/18 20:21:00 CDT, Stop date: 03/11/18 20:21:00 CDT Inactive 03/12/2018 [facility] Zofran 4 mg, 2 mL, Route: IVP, Drug form: INJ, ONCE, Dosing Weight 61.364, kg, Priority: STAT, Start date: 03/11/18 18:46:00 CDT, Stop date: 03/11/18 18:46:00 CDTNotes: (Same as: Zofran) MEDICATION WASTE Product Size: 4 mg Product Wasted: ___ mg Inactive 03/11/2018 [facility] Fentanyl 50 microgram, 1 mL, Route: IVP, Drug form: INJ, ONCE, Dosing Weight 61.364, kg, Priority: STAT, Start date: 03/11/18 18:46:00 CDT, Stop date: 03/11/18 18:46:00 CDTNotes: (Same as: Sublimaze) Preservative free. Inactive 03/11/2018 [facility] methylPREDNISolone SODium SUCCinate 125 mg, 2 mL, Route: IVP, Drug form: INJ, ONCE, Dosing Weight 62.273, kg, Priority: STAT, Start date: 11/08/17 12:18:00 MANAGER WELDING, Stop date: 11/08/17 12:18:00 CSTNotes: (Same as:Solu-MEDROL, A-Methapred) Inactive 11/08/2017 [facility] Fentanyl 50 microgram, 1 mL, Route: IVP, Drug form: INJ, ONCE, Dosing Weight 62.273, kg, Priority: STAT, Start date: 11/08/17 11:01:00 MANAGER WELDING, Stop date: 11/08/17 11:01:00 CSTNotes: (Same as: Sublimaze) Preservative free. Inactive 11/08/2017 [facility] Saline Flush 0.9% 10 mL, Route: IVP, Drug Form: INJ, Dosing Weight 62.273, kg, PRN, PRN Line Flush, Start date: 11/08/17 9:28:00 MANAGER WELDING, Duration: 30 day, Stop date: 12/08/17 10:27:00 CDTNotes: (Same as: BD Posiflush) Inactive 11/08/2017 [facility] Vitamin B12 as directed Orally Active 100 MCG Orally once a day Deedee Patrick Zmaan Levothyroxine Sodium 1 tablet Orally Active .05 MG Orally Once a day Deedee [facility] Acetaminophen-Codeine #3 1 tablet as needed Orally Active 300- 30 MG Orally every 6 hrs Deedee Patrick Zaman Lyrica 1 capsule Orally Active 50 MG Orally TID Deedee Patrick Zaman Baby Aspirin 1 tablet Orally Active 81 MG Orally Once a day Deedee Patrick Zaman Biotin 1 capsule Orally Active 5000 MCG Orally Once a day Deedee Patrick Zaman Vitamin D3 1 tablet Orally Active 5000 UNIT Orally Once a day [facility] Patrick Zaman Pramipexole Dihydrochloride 1 tablet before bedtime Orally Active 0.25 MG Orally Once a day [facility] Patrick Zaman Centrum Silver 50+Women as directed Orally Active - Orally [facility] Patrick Zaman Amlodipine Besylate 1 tablet Orally Active 2.5 MG Orally Once a day [facility] Patrick Zaman Trazodone HCl 1 tablet at bedtime as needed Orally Active 50 MG Orally Once a day [facility] Patrick Zaman Ondansetron 1 tablet on the tongue and allow to dissolve as needed Orally Active 4 MG Orally every 4 hrs Deedee Patrick Zaman Hetal Root as directed Orally Active 550 MG Orally Deedee Patrick Zaman Ginkgo Biloba as directed Orally Active [address] [facility] Patrick Zaman PredniSONE TAKE 1- 2 TABLET BY MOUTH EVERY DAY NEEDED NA Active [address] [facility] Patrick Zaman Allergies, Adverse Reactions, Alerts Substance Category Reaction Severity Reaction type Status Date Reported Comments Source N.K.D.A. Adverse Reaction Info Not Available Adverse Reaction Active 10/20/2018 [facility] Immunizations Immunization Date Given Site Status Last Updated Comments Source pneumococcal 23-valent vaccine 10/09/2015 [facility] Results Order Name Results Value Reference Range Date Interpretation Comments Source CHEM PANEL Bili Indirect 0.4 mg/dL 0.0 - 1.0 11/13/2018 [facility] CHEM PANEL A/G Ratio 0.9 0.7 - 1.6 11/13/2018 [facility] CHEM PANEL Globulin 3.4 g/dL 2.7 - 4.2 11/13/2018 [facility] CHEM PANEL Alk Phos 74 unit/L 39 - 136 11/13/2018 [facility] CHEM PANEL AST 36 unit/L 0 - 37 11/13/2018 [facility] CHEM PANEL ALT 25 unit/L 0 - 65 11/13/2018 [facility] CHEM PANEL Albumin Lvl 3.1 g/dL 3.5 - 5.0 11/13/2018 [facility] CHEM PANEL Total Protein 6.5 g/dL 6.4 - 8.4 11/13/2018 [facility] CHEM PANEL Bili Direct 0.1 mg/dL 0.0 - 0.3 11/13/2018 [facility] CHEM PANEL Bili Total 0.5 mg/dL 0.2 - 1.3 11/13/2018 [facility] CHEM PANEL Calcium Lvl 8.8 mg/dL 8.5 - 10.5 11/13/2018 [facility] CHEM PANEL AGAP 9.2 meq/L 10.0 - 20.0 11/13/2018 [facility] CHEM PANEL eGFR 29 mL/min/1.73m2 11/13/2018 Result Comment: The eGFR is calculated using the [...] from the National Kidney Disease Education Program (NKDEP) which additionally recommends that when the eGFR is used in patients with extremes of body mass index for purposes of drug dosing, the eGFR should be multiplied by the estimated BMI. [facility] CHEM PANEL Creatinine Lvl 1.60 mg/dL 0.50 - 1.40 11/13/2018 [facility] CHEM PANEL CO2 26 meq/L 24 - 32 11/13/2018 [facility] CHEM PANEL Chloride Lvl 110 meq/L 95 - 109 11/13/2018 [facility] CHEM PANEL Sodium Lvl 141 meq/L 135 - 145 11/13/2018 [facility] CHEM PANEL Potassium Lvl 4.2 meq/L 3.5 - 5.1 11/13/2018 [facility] CHEM PANEL BUN 40 mg/dL 7 - 22 11/13/2018 [facility] CHEM PANEL Glucose Lvl 103 mg/dL 70 - 99 11/13/2018 [facility] HEMATOLOGY RBC 3.43 M/CMM 4.20 - 5.40 11/13/2018 [facility] HEMATOLOGY WBC 6.9 K/CMM 3.7 - 10.4 11/13/2018 [facility] Hct 33.3 % 36.0 - 48.0 11/13/2018 [facility] MCHC 33.5 g/dL 32.0 - 36.0 11/13/2018 [facility] MCH 32.5 pg 27.0 - 31.0 11/13/2018 [facility] MCV 97.0 fL 80.0 - 98.0 11/13/2018 [facility] HEMATOLOGY Hgb 11.1 g/dL 12.0 - 16.0 11/13/2018 [facility] HEMATOLOGY Platelet 203 K/CMM 133 - 450 11/13/2018 [facility] HEMATOLOGY MPV 9.1 fL 7.4 - 10.4 11/13/2018 [facility] HEMATOLOGY RDW 14.8 % 11.5 - 14.5 11/13/2018 [facility] LIPIDS CHD Risk 2.91 3.90 - 5.80 11/13/2018 [facility] LIPIDS VLDL 33 11/13/2018 [facility] LIPIDS HDL 66 mg/dL >=61 mg/dL 11/13/2018 [facility] LIPIDS LDL (Calculated) 93 mg/dL <=99 mg/dL 11/13/2018 [facility] LIPIDS Trig 167 mg/dL <=149 mg/dL 11/13/2018 [facility] LIPIDS Chol 192 mg/dL <=199 mg/dL 11/13/2018 [facility] SPECIAL CHEMISTRY Hgb A1C 6.0 % <=5.6 % 11/13/2018 [facility] CARDIAC ENZYMES BNP 247 pg/mL <=100 pg/mL 11/12/2018 [facility] CHEM PANEL Uric Acid 7.3 mg/dL 2.5 - 7.0 11/12/2018 [facility] CHEM PANEL Vitamin D, 25-OH, Total 45.0 ng/mL 30.0 - 100.0 11/12/2018 [facility] CHEM PANEL Phosphorus 3.3 mg/dL 2.5 - 4.5 11/12/2018 [facility] CHEM PANEL Magnesium Lvl 2.5 mg/dL 1.8 - 2.4 11/12/2018 [facility] HEMATOLOGY Sed Rate 30 mm/h 0 - 20 11/12/2018 [facility] IMMUNOLOGY Homocyst Tot 16.4 umol/L 3.7 - 13.9 11/12/2018 [facility] IMMUNOLOGY CRP, High Sensitivity 5.6 mg/L 11/12/2018 [facility] LIPIDS CHD Risk 2.67 3.90 - 5.80 11/12/2018 [facility] LIPIDS VLDL 19 11/12/2018 [facility] LIPIDS LDL (Calculated) 98 mg/dL <=99 mg/dL 11/12/2018 [facility] LIPIDS Trig 97 mg/dL <=149 mg/dL 11/12/2018 [facility] LIPIDS Chol 187 mg/dL <=199 mg/dL 11/12/2018 [facility] LIPIDS HDL 70 mg/dL >=61 mg/dL 11/12/2018 [facility] SPECIAL CHEMISTRY Hgb A1C 5.9 % <=5.6 % 11/12/2018 [facility] Carotid artery Doppler bilat US Carotid artery Doppler bilat US Clinical Indication: - syncope Comparison: None TECHNIQUE: Pruitt-scale, color Doppler and spectral Doppler of the carotid arteries was performed. Any reported ICA stenoses indirectly reference the distal internal carotid diameter as the denominator for the stenosis measurement, utilizing consensus panel criteria. FINDINGS: Grayscale images demonstrate no significant atheromatous plaque formation of the right or left extracranial carotid artery systems. Normal color-flow signal and spectral Doppler waveforms. Right: ICA PSV 84.3 cm/sec ICA/CCA ratio 0.8 Left: ICA PSV 85.6 cm/sec ICA/CCA ratio 0.7 Bilateral vertebral arteries demonstrate antegrade flow. Bilateral external carotid arteries are patent. IMPRESSION: 1. No evidence for hemodynamically significant stenosis of the right or left extracranial internal carotid arteries. 2. Normal antegrade flow both vertebral arteries. Consensus panel Doppler US criteria for diagnosis of ICA stenosis: Stenosis (%) ICA PSV (cm/sec) ICA/CCA ratio <50 <125 <2.0 50-69 125-230 2.0-4.0 >70 but less than >230 >4.0 near occlusion Near occlusion High, low, or Variable undetectable SL: KANDICE 11/12/2018 - - Read by: Reese An MD Dictated Date/time: 11/12/18 18:43 Electronically Signed by: Reese An MD 11/12/18 18:44 FINAL REPORT [facility] CARDIAC ENZYMES BNP 245 pg/mL <=100 pg/mL 11/12/2018 [facility] CARDIAC ENZYMES Troponin-I 0.04 ng/mL 0.00 - 0.40 11/12/2018 [facility] ELECTROLYTES AGAP 7.6 meq/L 10.0 - 20.0 11/12/2018 [facility] ELECTROLYTES Globulin 3.8 g/dL 2.7 - 4.2 11/12/2018 [facility] ELECTROLYTES A/G Ratio 1.0 0.7 - 1.6 11/12/2018 [facility] ELECTROLYTES B/C Ratio 26 6 - 25 11/12/2018 [facility] ELECTROLYTES eGFR 21 mL/min/1.73m2 11/12/2018 Result Comment: The eGFR is calculated using the [...] from the National Kidney Disease Education Program (NKDEP) which additionally recommends that when the eGFR is used in patients with extremes of body mass index for purposes of drug dosing, the eGFR should be multiplied by the estimated BMI. [facility] ELECTROLYTES Bili Total 0.7 mg/dL 0.2 - 1.3 11/12/2018 [facility] ELECTROLYTES Alk Phos 109 unit/L 39 - 136 11/12/2018 [facility] ELECTROLYTES Chloride Lvl 105 meq/L 95 - 109 11/12/2018 [facility] ELECTROLYTES CO2 29 meq/L 24 - 32 11/12/2018 [facility] ELECTROLYTES BUN 54 mg/dL 7 - 22 11/12/2018 [facility] ELECTROLYTES Glucose Lvl 111 mg/dL 70 - 99 11/12/2018 [facility] ELECTROLYTES Total Protein 7.7 g/dL 6.4 - 8.4 11/12/2018 [facility] ELECTROLYTES Albumin Lvl 3.9 g/dL 3.5 - 5.0 11/12/2018 [facility] ELECTROLYTES Creatinine Lvl 2.08 mg/dL 0.50 - 1.40 11/12/2018 [facility] ELECTROLYTES ALT 28 unit/L 0 - 65 11/12/2018 [facility] ELECTROLYTES Sodium Lvl 137 meq/L 135 - 145 11/12/2018 [facility] ELECTROLYTES Potassium Lvl 4.6 meq/L 3.5 - 5.1 11/12/2018 [facility] ELECTROLYTES AST 34 unit/L 0 - 37 11/12/2018 [facility] ELECTROLYTES Calcium Lvl 9.0 mg/dL 8.5 - 10.5 11/12/2018 [facility] HEMATOLOGY Monocytes # 0.7 K/CMM 0.0 - 0.8 11/12/2018 [facility] HEMATOLOGY Eosinophils # 0.2 K/CMM 0.0 - 0.5 11/12/2018 [facility] HEMATOLOGY Neutrophils # 5.3 K/CMM 1.5 - 8.1 11/12/2018 [facility] HEMATOLOGY Basophils 0.5 % 0.0 - 1.0 11/12/2018 [facility] HEMATOLOGY Lymphocytes # 1.9 K/CMM 1.0 - 5.5 11/12/2018 [facility] HEMATOLOGY Eosinophils 2.9 % 0.0 - 4.0 11/12/2018 [facility] Monocytes 8.6 % 2.0 - 12.0 11/12/2018 [facility] Lymphocytes 23.6 % 20.0 - 40.0 11/12/2018 [facility] Segs 64.4 % 45.0 - 75.0 11/12/2018 [facility] PTT 28.8 s 22.9 - 35.8 11/12/2018 [facility] PT 12.7 s 12.0 - 14.7 11/12/2018 [facility] INR 0.97 0.85 - 1.17 11/12/2018 [facility] MCHC 33.2 g/dL 32.0 - 36.0 11/12/2018 [facility] MCH 32.3 pg 27.0 - 31.0 11/12/2018 [facility] RDW 15.0 % 11.5 - 14.5 11/12/2018 [facility] MPV 9.0 fL 7.4 - 10.4 11/12/2018 [facility] Platelet 233 K/CMM 133 - 450 11/12/2018 [facility] RBC 3.91 M/CMM 4.20 - 5.40 11/12/2018 [facility] WBC 8.3 K/CMM 3.7 - 10.4 11/12/2018 [facility] MCV 97.4 fL 80.0 - 98.0 11/12/2018 [facility] Hgb 12.6 g/dL 12.0 - 16.0 11/12/2018 [facility] Hct 38.1 % 36.0 - 48.0 11/12/2018 [facility] Chest 1view DX Chest 1view DX EXAM: XR CHEST 1 VIEW DATE: 11/12/2018 9:29 MANAGER WELDING : 1930; 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 FINDINGS/IMPRESSION: Lines, tubes and hardware: Cervical hardware again seen. Stable right chest cardiac device. The heart size is normal for technique. Vascular calcifications are present at the aorta. Pulmonary vascularity is normal. Interval improvement in left lower lung and right lateral midlung airspace opacities. No pleural effusion. SL: [id number] 11/12/2018 - - Read by: Zulma Beckham Dictated Date/time: 11/12/18 10:09 Electronically Signed by: Zulma Beckham 11/12/18 10:12 FINAL REPORT [facility] Brain wo contrast CT Brain wo contrast CT Patient Name: ROSE CRUZ : 1930; Age: 88 years Female MR: [id number] Study: Brain wo contrast CT 11/12/2018 9:29 MANAGER WELDING Clinical Indication: - syncope. Syncopal episode x 2 minutes per son while sitting at breakfast table this am. Dispatch instructed to give chest compressions. Per HFD, pt was "snoring". Pt aox4 GCS 15 upon EMS arrival. PMH: pacemaker, HTN, DM COMPARISON: 09/30/2018 TECHNIQUE: CT images were obtained from the foramen magnum to the vertex without the use of intravenous contrast on a multidetector CT. Coronal and sagittal reconstructions were obtained. CT imaging performed at this location utilizes radiation dose optimization techniques which include one or more of the following: -Automated exposure control -Adjustment of the mA and/or kV according to patient size -Use of iterative reconstruction technique CT Radiation Dose DLP 902 mGy-cm FINDINGS: BRAIN PARENCHYMA: There is generalized brain parenchymal atrophy related to the patient's age. Nonspecific periventricular white matter disease changes are noted. Atherosclerotic calcifications are present within the carotid siphons and distal vertebral arteries. There are no focal mass lesions on this noncontrast head CT. There is no mass effect, midline shift or edema. There are no intra-axial or extra-axial fluid collections. There is no intraventricular or intraparenchymal hemorrhage. There is no noncontrast CT evidence of a subacute stroke. The pineal, sellar, brainstem, cerebellum and skull base regions appear normal. VENTRICLES: The lateral ventricles, third and fourth ventricles appear normal. The basilar cisterns are normal. ORBITS, MASTOIDS AND PARANASAL SINUSES: The visualized orbits are normal. The visualized paranasal sinuses are normal. The mastoid air cells are clear. SKULL: There are no calvarial abnormalities seen. If there is further concern for intracranial pathology or acute stroke, MRI of the brain may be performed for complete assessment. IMPRESSION: Chronic age-related and small vessel ischemic changes without mass, hemorrhage or subacute stroke. SL: [id number] 11/12/2018 - - Read by: Allen Rojas MD Dictated Date/time: 11/12/18 10:07 Electronically Signed by: Allen Rojas MD 11/12/18 10:11 FINAL REPORT [facility] Chest wo contrast CT Chest wo contrast CT Clinical Indication: Syncopal episode, fall. Comparison: Radiograph examinations from 11/08/2017 and 09/30/2018; CT examination from 11/08/2017 TECHNIQUE: Sequential trans-axial images were obtained thru the chest and upper abdomen without iodinated contrast. Oral contrast has been administered. Coronal and sagittal reconstructions were obtained. No intravenous contrast material was used for the exam. CT imaging performed at this location utilizes radiation dose optimization techniques which include one or more of the following: -Automated exposure control -Adjustment of the mA and/or kV according to patient size -Use of iterative reconstruction technique Dose: EJZ=140.20 mGy-cm FINDINGS: LUNG PARENCHYMA AND PLEURA: Bandlike focal posterior and centrally based infiltrate in the left upper lobe, posterior to the descending thoracic aorta. Additional centrally based infiltrative process in the left upper lobe seen more superiorly with small air bronchograms internally. Tree-in-bud opacities throughout the right upper lobe. Peripherally based rounded infiltrate with air bronchograms in the lateral base of the right lower lobe. Right lower lobe lung nodule measures 7 mm (series 3, image 105). Spiculated nodular density measuring approximately 9 mm in the right upper lobe (series 3, image 84). 7 mm left upper lobe lung nodule (series 3, image 101). AIRWAY: Trachea midline. No visualized endobronchial lesion. No bronchiectasis. HEART: Heart size normal. No suggestion of right ventricular heart strain. Trace pericardial effusion Pacemaker leads terminate in the right atrium and right ventricle. Moderate to marked atherosclerotic calcifications of the coronary arteries. VASCULAR STRUCTURES: Aorta normal in caliber without aneurysmal dilatation. Pulmonary arteries normal in caliber. Superior vena cava within normal limits. REMAINDER OF CHEST: No pathologically enlarged lymph nodes in the axillary, supraclavicular, mediastinal, or retrocrural spaces. Limited assessment for hilar adenopathy secondary to lack of intravenous contrast. Thyroid gland appears within normal limits. OSSEOUS STRUCTURES AND SOFT TISSUES: No fracture or dislocation detected. No lytic or blastic lesion. Multilevel moderate to severe degenerative disc changes throughout the imaged spine. Severe degenerative changes of the left glenohumeral joint. Large bilateral glenohumeral joint effusions. Left-sided mastectomy changes. VISUALIZED UPPER ABDOMEN: The visualized upper abdomen demonstrate no acute findings. IMPRESSION: 1. Several infiltrative processes in the left upper lobe and right lower lobe. Multilobar pneumonia can be considered. Given that there are changes of a left-sided mastectomy, alternative consideration of left lung radiation pneumonitis (if there has been a history of radiation treatment) can also be considered. 2. Several lung nodules measuring up to 9 mm in size. Uncertain if this is related to lung nodules or reactive (infectious versus inflammatory) changes, given that there are tree-in-bud opacities. Recommend follow-up CT examination within 3 months to reevaluate. 3. Small pericardial effusion. Moderate to marked coronary artery atherosclerosis. 4. 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 Large bilateral glenohumeral joint effusions SL: [id number] 09/30/2018 - - Read by: Marcia Jose MD Dictated Date/time: 10/01/18 00:01 Electronically Signed by: Marcia Jose MD 10/01/18 00:12 FINAL REPORT [facility] Chest 1view DX Chest 1view DX Patient Name: ROSE CRUZ : 1930; Age: 88 years y/o Female MR: [id number] Study: Chest 1view DX dated 09/30/2018. 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 There is a small amount of patchy consolidation in the lateral left lung base representing nonspecific pneumonitis. Prominence of the left hilar region. Cannot exclude tumorous change. Recommend chest CT with contrast for further evaluation. There is question of a small indeterminate nodular lesion to the lateral right mid lung. Cardiac and mediastinal structures are otherwise stable including tortuous thoracic aorta. Prominence of the interstitium about the lungs could represent a mild edema. No other focal infiltrates within the lungs and no pneumothorax. Stable position of right transvenous pacer. Lateral blunting of the right costophrenic angle may represent small right pleural effusion. Increased density to the superior humeral heads bilaterally may represent bilateral avascular necrosis. SL: [id number] 09/30/2018 - - Read by: Bebeto Melendez MD Dictated Date/time: 09/30/18 13:18 Electronically Signed by: Bebeto Melendez MD 09/30/18 13:23 FINAL REPORT [facility] Brain wo contrast CT Brain wo contrast CT Clinical Indication: - syncope, found on ground Comparison: None TECHNIQUE: CT images were obtained from the foramen magnum to the vertex without the use of intravenous contrast on a multidetector CT. Coronal and sagittal reconstructions were obtained. CT imaging performed at this location utilizes radiation dose optimization techniques which include one or more of the following: -Automated exposure control -Adjustment of the mA and/or kV according to patient size -Use of iterative reconstruction technique CT Radiation Dose DLP 902 mGy-cm FINDINGS: BRAIN PARENCHYMA: Diffuse cerebral volume loss is noted, appropriate for age. Periventricular and deep white matter hypodensities are noted, consistent with sequelae of chronic microvascular ischemia. There are no focal mass lesions on this noncontrast head CT. There is no mass effect, midline shift or edema. There are no intra-axial or extra-axial fluid collections, intraventricular or intraparenchymal hemorrhage. The pineal, sellar, brainstem, cerebellum and skull base regions appear unremarkable. Intracranial vascular calcifications are noted. VENTRICLES: The lateral ventricles, third and fourth ventricles appear unremarkable for age. The basilar cisterns are normal. ORBITS, MASTOIDS AND PARANASAL SINUSES: Status post bilateral lens replacement. The visualized orbits and paranasal sinuses are unremarkable. The mastoid air cells are clear. SKULL: There are no osseous abnormalities. If there is further concern for intracranial pathology or acute stroke, MRI of the brain may be performed for complete assessment. IMPRESSION: No mass, hemorrhage, or subacute stroke. ----- ESDRAS: HERBERTH 09/30/2018 - - Read by: Ammy Samuel MD Dictated Date/time: 09/30/18 13:25 Electronically Signed by: Ammy Samuel MD 09/30/18 13:29 FINAL REPORT [facility] Spine cervical wo contrast CT (ER) Spine cervical wo contrast CT (ER) Clinical Indication: - syncope, found on ground. Comparison: None Technique: Noncontrast helical CT imaging of the cervical spine was performed from the skull base through the cervicothoracic junction. Axial, sagittal, and coronal multiplanar contrast reconstructions provided. CT imaging performed at this location utilizes radiation dose optimization techniques which include one or more of the following: -Automated exposure control -Adjustment of the mA and/or kV according to patient size -Use of iterative reconstruction technique Exam DLP: 651 mGy-cm FINDINGS: ALIGNMENT AND GENERAL ASSESSMENT: No acute fracture or malalignment in the cervical spine. Prior anterior cervical discectomy and interbody fusion at C5- C6. The craniocervical junction is well aligned. The atlanto-dental alignment appears unremarkable. There is no widening of the facet or interspinous distances. DISK SPACES AND SOFT TISSUES: There is no prevertebral or paravertebral hematoma. Multilevel degenerative disc disease throughout the cervical spine, with prior ACDF at C5-C6. Moderate to severe multilevel bilateral neural foraminal narrowing most pronounced on the right at C3-C4 and C4-C5, and bilaterally C5-C6 and C6-C7 MRI is the gold standard to assess for disk disease. VISUALIZED LUNG APICES: No apical pneumothorax.. CT myelogram or MRI of the cervical spine may be performed, if there is further concern. IMPRESSION: No acute fracture or malalignment of the cervical spine. Multilevel cervical spondylosis. Status post ACDF C5-C6. SL: [id number] 09/30/2018 - - Read by: Patrick Dyson MD Dictated Date/time: 09/30/18 13:25 Electronically Signed by: Patrick Dyson MD 09/30/18 13:30 FINAL REPORT [facility] CARDIAC ENZYMES Troponin-I 0.04 ng/mL 0.00 - 0.40 03/12/2018 [facility] CHEM PANEL Lipase Lvl 98 unit/L 73 - 393 03/12/2018 [facility] CHEM PANEL B/C Ratio 24 6 - 25 03/12/2018 [facility] CHEM PANEL A/G Ratio 0.9 0.7 - 1.6 03/12/2018 [facility] CHEM PANEL Globulin 4.7 g/dL 2.7 - 4.2 03/12/2018 [facility] CHEM PANEL AGAP 14.4 meq/L 10.0 - 20.0 03/12/2018 [facility] CHEM PANEL eGFR 37 mL/min/1.73m2 03/12/2018 Result Comment: The eGFR is calculated using the [...] from the National Kidney Disease Education Program (NKDEP) which additionally recommends that when the eGFR is used in patients with extremes of body mass index for purposes of drug dosing, the eGFR should be multiplied by the estimated BMI. [facility] CHEM PANEL CO2 28 meq/L 24 - 32 03/12/2018 [facility] CHEM PANEL Bili Total 0.4 mg/dL 0.2 - 1.3 03/12/2018 [facility] CHEM PANEL Alk Phos 107 unit/L 39 - 136 03/12/2018 [facility] CHEM PANEL AST 21 unit/L 0 - 37 03/12/2018 [facility] CHEM PANEL Chloride Lvl 101 meq/L 95 - 109 03/12/2018 [facility] CHEM PANEL Potassium Lvl 4.4 meq/L 3.5 - 5.1 03/12/2018 [facility] CHEM PANEL Creatinine Lvl 1.31 mg/dL 0.50 - 1.40 03/12/2018 [facility] CHEM PANEL BUN 32 mg/dL 7 - 22 03/12/2018 [facility] CHEM PANEL Glucose Lvl 126 mg/dL 70 - 99 03/12/2018 [facility] CHEM PANEL ALT 25 unit/L 0 - 65 03/12/2018 [facility] CHEM PANEL Albumin Lvl 4.2 g/dL 3.5 - 5.0 03/12/2018 [facility] CHEM PANEL Total Protein 8.9 g/dL 6.4 - 8.4 03/12/2018 [facility] CHEM PANEL Calcium Lvl 9.8 mg/dL 8.5 - 10.5 03/12/2018 [facility] CHEM PANEL Sodium Lvl 139 meq/L 135 - 145 03/12/2018 [facility] HEMATOLOGY Eosinophils 0.1 % 0.0 - 4.0 03/12/2018 [facility] HEMATOLOGY Monocytes 5.8 % 2.0 - 12.0 03/12/2018 [facility] Segs-Bands # 7.4 K/CMM 1.5 - 8.1 03/12/2018 [facility] Lymphocytes 15.0 % 20.0 - 40.0 03/12/2018 [facility] HEMATOLOGY Basophils 0.4 % 0.0 - 1.0 03/12/2018 [facility] Lymphocytes # 1.4 K/CMM 1.0 - 5.5 03/12/2018 [facility] Macrocyte 1+ *ABN* (03/11/18 7:36 PM) None Seen 03/12/2018 [facility] Monocytes # 0.5 K/CMM 0.0 - 0.8 03/12/2018 [facility] Segs 78.7 % 45.0 - 75.0 03/12/2018 [facility] MCHC 33.5 g/dL 32.0 - 36.0 03/12/2018 [facility] MCH 33.4 pg 27.0 - 31.0 03/12/2018 [facility] RDW 14.1 % 11.5 - 14.5 03/12/2018 [facility] MPV 8.7 fL 7.4 - 10.4 03/12/2018 [facility] Platelet 258 K/CMM 133 - 450 03/12/2018 [facility] Hct 42.5 % 36.0 - 48.0 03/12/2018 [facility] Hgb 14.2 g/dL 12.0 - 16.0 03/12/2018 [facility] MCV 99.5 fL 80.0 - 98.0 03/12/2018 [facility] RBC 4.27 M/CMM 4.20 - 5.40 03/12/2018 [facility] WBC 9.3 K/CMM 3.7 - 10.4 03/12/2018 [facility] CARDIAC ENZYMES CK MB Index 2.6 0.0 - 2.5 11/08/2017 [facility] CARDIAC ENZYMES BNP 137 pg/mL <=100 pg/mL 11/08/2017 [facility] CARDIAC ENZYMES Troponin-I 0.05 ng/mL 0.00 - 0.40 11/08/2017 [facility] CARDIAC ENZYMES Total CK 108 unit/L 12 - 191 11/08/2017 [facility] CARDIAC ENZYMES CK MB 2.8 ng/mL 0.5 - 3.6 11/08/2017 [facility] CHEM PANEL Bili Total 0.3 mg/dL 0.2 - 1.3 11/08/2017 [facility] CHEM PANEL B/C Ratio 25 6 - 25 11/08/2017 [facility] CHEM PANEL AGAP 13.6 meq/L 10.0 - 20.0 11/08/2017 [facility] CHEM PANEL Globulin 3.9 g/dL 2.7 - 4.2 11/08/2017 [facility] CHEM PANEL A/G Ratio 0.9 0.7 - 1.6 11/08/2017 [facility] CHEM PANEL eGFR 36 mL/min/1.73m2 11/08/2017 Result Comment: The eGFR is calculated using the [...] from the National Kidney Disease Education Program (NKDEP) which additionally recommends that when the eGFR is used in patients with extremes of body mass index for purposes of drug dosing, the eGFR should be multiplied by the estimated BMI. [facility] CHEM PANEL Albumin Lvl 3.5 g/dL 3.5 - 5.0 11/08/2017 [facility] CHEM PANEL Total Protein 7.4 g/dL 6.4 - 8.4 11/08/2017 [facility] CHEM PANEL AST 22 unit/L 0 - 37 11/08/2017 [facility] CHEM PANEL Alk Phos 86 unit/L 39 - 136 11/08/2017 [facility] CHEM PANEL ALT 21 unit/L 0 - 65 11/08/2017 [facility] CHEM PANEL Sodium Lvl 137 meq/L 135 - 145 11/08/2017 [facility] CHEM PANEL Potassium Lvl 4.6 meq/L 3.5 - 5.1 11/08/2017 [facility] CHEM PANEL Chloride Lvl 103 meq/L 95 - 109 11/08/2017 [facility] CHEM PANEL CO2 25 meq/L 24 - 32 11/08/2017 [facility] CHEM PANEL Calcium Lvl 8.6 mg/dL 8.5 - 10.5 11/08/2017 [facility] CHEM PANEL Glucose Lvl 93 mg/dL 70 - 99 11/08/2017 [facility] CHEM PANEL BUN 33 mg/dL 7 - 22 11/08/2017 [facility] CHEM PANEL Creatinine Lvl 1.33 mg/dL 0.50 - 1.40 11/08/2017 [facility] HEMATOLOGY Lymphocytes # 1.2 K/CMM 1.0 - 5.5 11/08/2017 [facility] HEMATOLOGY Monocytes # 0.5 K/CMM 0.0 - 0.8 11/08/2017 [facility] HEMATOLOGY Segs-Bands # 3.4 K/CMM 1.5 - 8.1 11/08/2017 [facility] Eosinophils 2.3 % 0.0 - 4.0 11/08/2017 [facility] Basophils 0.6 % 0.0 - 1.0 11/08/2017 [facility] Monocytes 10.1 % 2.0 - 12.0 11/08/2017 [facility] Eosinophils # 0.1 K/CMM 0.0 - 0.5 11/08/2017 [facility] Lymphocytes 22.1 % 20.0 - 40.0 11/08/2017 [facility] Segs 64.9 % 45.0 - 75.0 11/08/2017 [facility] Hct 36.0 % 36.0 - 48.0 11/08/2017 [facility] Hgb 12.1 g/dL 12.0 - 16.0 11/08/2017 [facility] RBC 3.65 M/CMM 4.20 - 5.40 11/08/2017 [facility] WBC 5.2 K/CMM 3.7 - 10.4 11/08/2017 [facility] MPV 9.5 fL 7.4 - 10.4 11/08/2017 [facility] RDW 13.2 % 11.5 - 14.5 11/08/2017 [facility] Platelet 204 K/CMM 133 - 450 11/08/2017 [facility] MCHC 33.6 g/dL 32.0 - 36.0 11/08/2017 [facility] MCV 98.5 fL 80.0 - 98.0 11/08/2017 [facility] MCH 33.1 pg 27.0 - 31.0 11/08/2017 [facility] Chest/Abd/Pelvis CTA Chest/Abd/Pelvis CTA Study: Chest/Abd/Pelvis CTA Clinical Indication: - chest pain, back pain, hypertension,? dissection; Comparison: Chest this Technique: Axial images with sagittal and coronal MIP reconstructions were obtained following bolus nonionic intravenous contrast, Visipaque 75 mL. No 3-D images were obtained. CT Radiation Dose: MAN=9248.05 mGy-cm. FINDINGS: CT ANGIOGRAM: No aortic dissection or aneurysm is identified. There is minor atherosclerosis including minor coronary artery calcifications. CT CHEST: The lungs demonstrate mild interstitial scarring. No mass, airspace consolidation, bronchiectasis or endobronchial obstructing lesion is identified. There is no hilar or mediastinal adenopathy. No pleural or pericardial effusion is seen. CT ABDOMEN AND PELVIS: Images were obtained in the arterial phase. The liver, spleen, gallbladder and common duct are grossly unremarkable. The kidneys, adrenals and pancreas are normal. There is a moderate amount of fecal material within the colon. No intestinal lesion or mesenteric inflammatory change is noted. Uterus is atrophic. No adnexal mass is seen. Unenhanced urinary bladder is not remarkable. There is extensive spondylosis. No adenopathy or ascites is seen. IMPRESSION: 1. No aortic dissection or aneurysm. Minor atherosclerosis. 2. Minor interstitial scarring. 3. Moderate amount of colonic fecal material. 4. Extensive spondylosis. SL: [id number] 11/08/2017 - - Read by: Jesús Guerra MD Dictated Date/time: 11/08/17 12:03 Electronically Signed by: Jesús Guerra MD 11/08/17 12:11 FINAL REPORT [facility] 1view DX Chest 1view DX PROCEDURE: Chest, AP on 11/08/2017 at 0942 hours. INDICATION: Left-sided chest pain. COMPARISON: None. FINDINGS: No pleural effusion or pneumothorax. Lungs are clear without venous congestion or infiltrates. Calcifications overlie the left lower chest. Cardiac silhouette is not enlarged. Right chest pacemaker device with leads overlying the mediastinum. Heterogeneous sclerosis within the bilateral shoulders, humeral heads with degenerative changes. Degenerative disc disease in the spine. IMPRESSION: 1. No evidence for an acute cardiopulmonary process. 2. Degenerative and postsurgical changes. SL: [id number] 11/08/2017 - - Read by: Irving Patton MD Dictated Date/time: 11/08/17 10:17 Electronically Signed by: Irving Patton MD 11/08/17 10:22 FINAL REPORT [facility] Shoulder series DX Shoulder series DX Left Shoulder series DX 87 years /o Female Clinical Indication: - pain; Comparison: None TECHNIQUE: AP views in internal and external rotation, and a scapular Y view of the left shoulder. FINDINGS: No acute fracture or malalignment is identified. Advanced degenerative changes suspected in the glenohumeral joint. Mild widening of the AC joint suspicious for some acromioclavicular ligamentous injury (low-grade). The patient is taking a shallow inspiration. A small metallic clip is superimposed on the lateral aspect of the left upper chest. IMPRESSION: 1. 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 2. Slight widening of the acromioclavicular joint space suspicious for before meals ligamentous injury of indeterminate chronicity. 11/08/2017 - - Read by: Xiang Mooney MD Dictated Date/time: 11/08/17 10:15 Electronically Signed by: Xiang Mooney MD 11/08/17 10:20 FINAL REPORT [facility] Retroperitoneal Complete US Retroperitoneal Complete US Patient Name: ROSE CRUZ : 1930; Age: 86 years y/o Female MR: [id number] Study: Retroperitoneal Complete US Clinical Indication: - chronic kidney disease; Comparison: None TECHNIQUE: Multiple longitudinal and transverse real time sonographic images of the kidneys and urinary bladder are obtained. FINDINGS: KIDNEY: The right kidney measures 9.3 x 3.8 x 4.3cm. The left kidney measures 9.3 x 4.8 x 4.3 cm. No pelvocaliectasis, nephrolithiasis or renal mass lesion identified bilaterally. BLADDER: Bladder is only poorly distended. Bladder ultrasound was separately performed. Please see that report. IMPRESSION: No significant acute findings. SL: [id number] 04/09/2017 - - Read by: Deshawn Herrera MD Dictated Date/time: 04/09/17 13:17 Electronically Signed by: Deshawn Herrera MD 04/09/17 13:18 FINAL REPORT [facility] Bladder US Bladder US Patient Name: ROSE CRUZ : 1930; Age: 86 years y/o Female MR: [id number] Study: Bladder US 04/09/2017 11:24 AM CDT Ordering Physician: Chance Putnam MD Clinical Indication: - chronic kidney disease; Comparison: None Urinary bladder prior to voiding is only partially filled. No intrinsic lesion is demonstrated. Its volume measures 55 mL. Postvoid, near complete bladder emptying, with only 5 mL remaining. SL: [id number] 04/09/2017 - - Read by: Deshawn Herrera MD Dictated Date/time: 04/09/17 13:14 Electronically Signed by: Deshawn Herrera MD 04/09/17 13:17 FINAL REPORT [facility] Spine lumbar wo contrast CT Spine lumbar wo contrast CT Spine lumbar wo contrast CT 12/21/2015 1:56 PM CDT Ordering Physician: Mary Tirado MD CLINICAL INDICATION: M51.27 Other intervertebral disc displacement, lumbosacral region; lower back pain COMPARISON: None TECHNIQUE: 3 mm thick axial images of the lumbar spine is performed. Coronal and sagittal reconstructions were obtained. FINDINGS: No acute fracture, subluxation, or dislocation is present. Prevertebral soft tissues are normal. Mild dextroscoliosis of the lower lumbosacral spine is noted at the L4/L5 level. T12/L1: Degenerative disc disease with height loss, mild posterior broad-based disc protrusion and minimal grade 1 degenerative T12 over L1 retrolisthesis. Mild bilateral T12 neural foraminal stenoses. L1/L2: Degenerative disc disease with height loss, mild posterior broad-based disc protrusion and minimal grade 1 degenerative L1 over L2 retrolisthesis. Moderate right and mild left L1 neural foraminal stenoses. L2/L3: Degenerative disc disease with height loss with mild posterior broad- based disc protrusion. Left posterior facet joint arthropathy. Mild left L2 neural foraminal stenosis. L3/L4: Degenerative disc disease with height loss, and moderate posterior broad- based disc protrusion with bilateral ligamenta flava hypertrophy causes moderate spinal canal stenosis. Bilateral posterior facet joint arthropathy. Mild left L3 neural foraminal stenosis. L4/L5: Degenerative disc disease with height loss, and moderate posterior broad- based disc protrusion with bilateral ligamenta flava hypertrophy causes moderate spinal canal stenosis. Bilateral foraminal arthropathy. Moderate right and severe left L4 neural foraminal stenoses. L5/S1: Degenerative disc disease with height loss, and mild posterior broad- based disc protrusion. Bilateral posterior facet joint arthropathy. Moderate bilateral L5 neural foraminal stenoses. IMPRESSION: 1. No acute abnormality of the lumbar spine. 2. Mild lower lumbosacral spine dextroscoliosis at the L4/L5 level. 3. L3/L4 moderate spinal canal stenosis secondary to moderate posterior broad-based disc protrusion in combination with bilateral ligamenta flava hypertrophy. 4. L4/L5 moderate spinal canal stenosis secondary to moderate posterior broad-based disc protrusion in combination with bilateral ligamenta flava hypertrophy. 5. 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 6. L2/L3 and L5/S1 mild spinal canal stenoses secondary to mild posterior broad- based disc protrusion. 7. Mild bilateral T12 neural foraminal stenosis. 8. Moderate right and mild left neural foraminal stenoses. 9. Mild left L2 neural foraminal stenosis. 10. Mild left L3 neural foraminal stenosis. 11. Moderate right and severe left L4 neural foraminal stenoses. 12. Moderate bilateral L5 neural foraminal stenoses. SL: [id number] 12/21/2015 - - Read by: Sage Granado MD Dictated Date/time: 12/24/15 10:19 Electronically Signed by: Sage Granado MD 12/24/15 10:50 FINAL REPORT [facility] Vital Signs Vital Sign Value Date Comments Source Temperature Oral (F) 98.4 F 11/13/2018 [facility] Respitory Rate 17 11/13/2018 [facility] Systolic (mm Hg) 116 11/13/2018 [facility] Diastolic (mm Hg) 84 11/13/2018 [facility] Heart Rate 93 11/13/2018 [facility] Temperature Oral (F) 97.7 F 11/13/2018 [facility] Respitory Rate 18 11/13/2018 [facility] Heart Rate 97 11/13/2018 [facility] Systolic (mm Hg) 138 11/13/2018 [facility] Diastolic (mm Hg) 89 11/13/2018 [facility] Respitory Rate 17 11/13/2018 [facility] Heart Rate 98 11/13/2018 [facility] Temperature Oral (F) 97.8 F 11/13/2018 [facility] Systolic (mm Hg) 158 11/13/2018 [facility] Diastolic (mm Hg) 82 11/13/2018 [facility] Weight 61.818 11/12/2018 [facility] Height 152.4 cm 11/12/2018 [facility] BMI Calculated 26.62 11/12/2018 [facility] Height 154.94 cm 11/12/2018 [facility] Weight 68.182 11/12/2018 [facility] BMI Calculated 28.4 11/12/2018 [facility] Weight 138.7 10/20/2018 [facility] Height 59 10/20/2018 [facility] Temperature Oral (F) 97.4 F 10/20/2018 [facility] Heart Rate 72 10/20/2018 [facility] Diastolic (mm Hg) 62 10/20/2018 [facility] Systolic (mm Hg) 126 10/20/2018 [facility] Weight 140.2 09/10/2018 Patrick [facility] Height 59 09/10/2018 [facility] Temperature Oral (F) 98.3 F 09/10/2018 [facility] Heart Rate 64 09/10/2018 [facility] Diastolic (mm Hg) 90 09/10/2018 [facility] Systolic (mm Hg) 136 09/10/2018 [facility] Weight 138 07/19/2018 [facility] Height 59.5 07/19/2018 [facility] Temperature Oral (F) 96.3 F 07/19/2018 [facility] Heart Rate 96 07/19/2018 [facility] Diastolic (mm Hg) 78 07/19/2018 [facility] Systolic (mm Hg) 122 07/19/2018 [facility] Weight 137.1 06/07/2018 [facility] Height 60 06/07/2018 [facility] Temperature Oral (F) 98.4 F 06/07/2018 [facility] Heart Rate 78 06/07/2018 [facility] Diastolic (mm Hg) 82 06/07/2018 [facility] Systolic (mm Hg) 148 06/07/2018 [facility] Temperature Oral (F) 97.9 F 03/12/2018 [facility] Systolic (mm Hg) 170 03/12/2018 [facility] Diastolic (mm Hg) 75 03/12/2018 [facility] Heart Rate 88 03/12/2018 [facility] Respitory Rate 19 03/12/2018 [facility] Respitory Rate 18 03/12/2018 [facility] Systolic (mm Hg) 174 03/12/2018 [facility] Diastolic (mm Hg) 88 03/12/2018 [facility] Heart Rate 90 03/12/2018 [facility] Systolic (mm Hg) 171 03/12/2018 [facility] Diastolic (mm Hg) 78 03/12/2018 [facility] Heart Rate 92 03/12/2018 [facility] Respitory Rate 18 03/12/2018 [facility] Temperature Oral (F) 97.9 F 03/12/2018 [facility] Temperature Oral (F) 99.0 F 03/11/2018 [facility] Height 149.86 cm 03/11/2018 [facility] Weight 61.364 03/11/2018 [facility] BMI Calculated 27.32 03/11/2018 [facility] Weight 136.4 02/17/2018 [facility] Height 60 02/17/2018 [facility] Temperature Oral (F) 97.6 F 02/17/2018 [facility] Heart Rate 80 02/17/2018 [facility] Diastolic (mm Hg) 78 02/17/2018 [facility] Systolic (mm Hg) 122 02/17/2018 [facility] Weight 137 02/03/2018 [facility] Height 60 02/03/2018 [facility] Temperature Oral (F) 97.0 F 02/03/2018 [facility] Heart Rate 76 02/03/2018 [facility] Diastolic (mm Hg) 74 02/03/2018 [facility] Systolic (mm Hg) 136 02/03/2018 [facility] Respitory Rate 14 11/08/2017 [facility] Systolic (mm Hg) 179 11/08/2017 [facility] Diastolic (mm Hg) 83 11/08/2017 [facility] Respitory Rate 18 11/08/2017 [facility] Systolic (mm Hg) 179 11/08/2017 [facility] Diastolic (mm Hg) 83 11/08/2017 [facility] Systolic (mm Hg) 180 11/08/2017 [facility] Diastolic (mm Hg) 84 11/08/2017 [facility] Respitory Rate 20 11/08/2017 [facility] Height 152.4 cm 11/08/2017 [facility] BMI Calculated 26.81 11/08/2017 [facility] Weight 62.273 11/08/2017 [facility] Heart Rate 85 11/08/2017 [facility] Temperature Oral (F) 97.7 F 11/08/2017 [facility] Weight 139 08/06/2017 [facility] Height 58 08/06/2017 [facility] Temperature Oral (F) 97.4 F 08/06/2017 [facility] Heart Rate 80 08/06/2017 [facility] Diastolic (mm Hg) 70 08/06/2017 [facility] Systolic (mm Hg) 136 08/06/2017 [facility] Z[facility] Encounters Location Location Details Encounter Type Encounter Number Reason For Visit Attending Provider ADM Date DC Date Status Source [facility] Outpatient [id number] Mary Tirado 12/21/2015 12/22/2015 [facility] Outpatient [id number] Chance Putnam 04/09/2017 04/10/2017 [facility] Emergency [id number] Dawood Windy 11/08/2017 11/08/2017 [facility] Emergency [id number] Chandler Katina 03/11/2018 03/12/2018 [facility] Observation [id number] Walker Carey 11/12/2018 11/13/2018 [facility] Procedures Procedure Code Date Perfomer Comments Source Mastectomy [id number] 09/28/1989 [facility] Cataract surgery [id number] [facility] Foot joint operations [id number] [facility]
--- OUTSIDE RECORDS SUMMARY | 2019-03-02 14:09 | XMS REPORT | Summary of Care ---
Author Author [facility] Organization [facility] Address Unknown Phone Unavailable Encounter MINDY Vásquez(BHAVYA) [id number] Date(s): 11/12/18 - 11/13/18 [facility] [address] [place] [address]- Discharge Disposition: Home or Self Care Attending Physician: Walker Carey MD Admitting Physician: Walker Carey MD Vital Signs 1 2 3 Most recent to oldest [Reference Range]: 152.4 cm (11/12/18 1:22 PM) 154.94 cm (11/12/18 9:17 AM) Height 98.4 DegF (11/13/18 12:04 PM) 97.7 DegF (11/13/18 7:43 AM) 97.8 DegF (11/13/18 2:53 AM) Temperature Oral [96.4-99.1 DegF] 116/84 mmHg (11/13/18 12:04 PM) 138/89 mmHg (11/13/18 7:43 AM) 158/82 mmHg *HI* (11/13/18 2:53 AM) Blood Pressure [90-140/60-90 mmHg] 17 BRMIN (11/13/18 12:04 PM) 18 BRMIN (11/13/18 7:43 AM) 17 BRMIN (11/13/18 2:53 AM) Respiratory Rate [14-20 BRMIN] 93 bpm (11/13/18 12:04 PM) 97 bpm (11/13/18 7:43 AM) 98 bpm (11/13/18 2:53 AM) Peripheral Pulse Rate [60-100 bpm] 61.818 kg (11/12/18 1:22 PM) 68.182 kg (11/12/18 9:17 AM) Weight 26.62 m2 (11/12/18 1:22 PM) 28.4 m2 (11/12/18 9:17 AM) Body Mass Index Problem List Condition Effective Dates Status Health Status Informant Arthritis(Confirmed) Resolved Breast ca(Confirmed) Resolved Hyperlipidemia(Confi Resolved rmed) Hypothyroidism(Confi Resolved rmed) Allergies, Adverse Reactions, Alerts Substance Reaction Severity Status NKDA Active Medications acetaminophen 650 mg, 2 tab, Route: PO, Drug form: TAB, Q6H, Dosing Weight 61.818, kg, PRN For Temp > 100.4 F, Start date: 11/12/18 13:31:00 RAGMAN, Duration: 30 day, Stop date: 12/12/18 13:30:00 CDT Notes: Do not exceed 4 gm/day. (Same as: Tylenol) Start Date: 11/12/18 Stop Date: 11/13/18 Status: Discontinued amLODIPine 2.5 mg, 1 tab, Route: PO, Drug form: TAB, Daily, Dosing Weight 61.818, kg, Start date: 11/13/18 9:00:00 RAGMAN, Duration: 30 day, Stop date: 12/12/18 9:00:00 CDT Notes: (Same as: Norvasc) Start Date: 11/13/18 Stop Date: 11/13/18 Status: Discontinued aspirin 81 mg tablet, enteric coated 81 mg, 1 tab, Route: PO, Drug form: ECTAB, Daily, Dosing Weight 61.818, kg, Star t date: 11/13/18 9:00:00 RAGMAN, Duration: 30 day, Stop date: 12/12/18 9:00:00 CDT Notes: Do not crush or chew.(Same As: Ecotrin) Start Date: 11/13/18 Stop Date: 11/13/18 Status: Discontinued bisacodyl 10 mg, 1 supp, Route: DE, Drug form: SUPP, Daily, Dosing Weight 61.818, kg, PRN Constipation, Start date: 11/12/18 13:31:00 RAGMAN, Duration: 30 day, Stop date: 13:30:00 CDT Notes: (Same As: Dulcolax, Bisco-Lax) Start Date: 11/12/18 Stop Date: 11/13/18 Status: Discontinued Dextrose 50% Syringe 25 gm, 50 mL, Route: IVP, Drug Form: INJ, Dosing Weight 61.818, kg, PRN, PRN Blo od Glucose Results, Start date: 11/12/18 13:31:00 RAGMAN, Duration: 30 day, Stop da te: 12/12/18 14:30:00 CDT Start Date: 11/12/18 Stop Date: 11/13/18 Status: Discontinued Dextrose 50% Syringe 12.5 gm, 25 mL, Route: IVP, Drug Form: INJ, Dosing Weight 61.818, kg, PRN, PRN B lood Glucose Results, Start date: 11/12/18 13:31:00 RAGMAN, Duration: 30 day, Stop date: 12/12/18 14:30:00 CDT Start Date: 11/12/18 Stop Date: 11/13/18 Status: Discontinued diphenhydrAMINE 25 mg, 0.5 mL, Route: PO, Drug form: INJ, Q6H, Dosing Weight 61.818, kg, PRN as needed for allergy symptoms, Start date: 11/12/18 13:31:00 RAGMAN, Duration: 30 day , Stop date: 12/12/18 13:30:00 CDT Notes: (Same as: Benadryl) Start Date: 11/12/18 Stop Date: 11/13/18 Status: Discontinued docusate 100 mg, 1 cap, Route: PO, Drug form: CAP, BID, Dosing Weight 61.818, kg, PRN as needed for constipation, Start date: 11/12/18 13:31:00 RAGMAN, Duration: 30 day, St op date: 12/12/18 13:30:00 CDT Notes: (Same as: Colace) (Do Not Crush) Start Date: 11/12/18 Stop Date: 11/13/18 Status: Discontinued ergocalciferol 50,000 IntlUnit, 1 cap, Route: PO, Drug form: CAP, Daily, Dosing Weight 61.818, kg, Start date: 11/13/18 9:00:00 RAGMAN, Duration: 3 day, Stop date: 11/15/18 9:00: 00 RAGMAN Notes: (Same as: Vitamin D) "Do Not Crush" Start Date: 11/13/18 Stop Date: 11/13/18 Status: Discontinued glucagon 1 mg, Route: IM, Drug form: PDR/INJ, PRN, Dosing Weight 61.818, kg, PRN Blood Gl ucose Results, Start date: 11/12/18 13:31:00 RAGMAN, Duration: 30 day, Stop date: 0 12/12/18 14:30:00 CDT Start Date: 11/12/18 Stop Date: 11/13/18 Status: Discontinued hydrALAZINE 10 mg, 0.5 mL, Route: IVP, Drug form: INJ, Q4H, Dosing Weight 61.818, kg, PRN Hy pertension, Priority: Routine, Start date: 11/12/18 13:31:00 RAGMAN, Duration: 30 d ay, Stop date: 12/12/18 13:30:00 CDT Notes: (Same as: Apresoline)Push over 5 minutes Start Date: 11/12/18 Stop Date: 11/13/18 Status: Discontinued hydrALAZINE 10 mg, Route: IV, Q4H, Dosing Weight 61.818, kg, PRN Hypertension, Start date: 0 11/12/18 13:49:00 RAGMAN, Duration: 30 day, Stop date: 12/12/18 13:48:00 CDT Start Date: 11/12/18 Stop Date: 11/12/18 Status: Deleted levothyroxine 50 microgram, 1 tab, Route: PO, Drug form: TAB, Q630AM, Dosing Weight 61.818, kg , Start date: 11/13/18 6:30:00 RAGMAN, Duration: 30 day, Stop date: 12/12/18 6:30:0 0 CDT Notes: Take 1 hour before or 2 hours after meal; Enteral feeds may interefere wi th the absorption of this medication.(Same as:Levothroid, Synthroid) Start Date: 11/13/18 Stop Date: 11/13/18 Status: Discontinued lidocaine topical patch (5% film) 2 patch, TOP, Daily, # 28 patch, 0 Refill(s), Pharmacy: [phone] Start Date: 11/13/18 Stop Date: 11/27/18 Status: Ordered lidocaine topical patch (5% film) 2 patch, Route: TOP, Daily, Drug form: FILM, Start date: 11/13/18 14:30:00 RAGMAN, Duration: 30 day, Stop date: 12/13/18 9:00:00 CDT Notes: Apply only once for up to 12 hours in b75-eoig period (12 hours on and 12 hours off).(Same as: Lidoderm)"Remove old patch before application of new patch" Start Date: 11/13/18 Stop Date: 11/13/18 Status: Discontinued Lopressor 2.5 mg, 2.5 mL, Route: IVP, Drug form: INJ, Q3H, Dosing Weight 61.818, kg, PRN T achycardia, Start date: 11/12/18 13:49:00 RAGMAN, Duration: 30 day, Stop date: 11/26 04/15 13:48:00 CDT Notes: (Same as: Lopressor)Push over 2 minutes Start Date: 11/12/18 Stop Date: 11/13/18 Status: Discontinued Lyrica 50 mg, 1 cap, Route: PO, Drug form: CAP, Daily, Dosing Weight 61.818, kg, Start date: 11/13/18 9:00:00 RAGMAN, Duration: 30 day, Stop date: 12/12/18 9:00:00 CDT Notes: Same as Lyrica Start Date: 11/13/18 Stop Date: 11/13/18 Status: Discontinued Maalox Advanced Regular Strength SUSP 30 mL, Route: PO, Drug Form: SUSP, Dosing Weight 61.818, kg, QID-After Meals, DE N as needed for indigestion, Routine, Start date: 11/12/18 13:31:00 RAGMAN, Duratio n: 30 day, Stop date: 12/12/18 13:30:00 CDT Notes: (aluminum hydroxide-magnesium hyd-simethicone [phone]/5ml 30 ml ud S US) Start Date: 11/12/18 Stop Date: 11/13/18 Status: Discontinued melatonin 3 mg, 1 tab, Route: PO, Drug form: TAB, Bedtime, Dosing Weight 61.818, kg, PRN I nsomnia, Start date: 11/12/18 13:31:00 RAGMAN, Duration: 30 day, Stop date: 9 13:30:00 CDT Notes: (Same as: Melatonin) Start Date: 11/12/18 Stop Date: 11/13/18 Status: Discontinued morphine Sulfate 2 mg, 1 mL, Route: IVP, Drug form: SOLN, Q4H, Dosing Weight 61.818, kg, PRN Pain Score 7-10, Start date: 11/12/18 13:31:00 RAGMAN, Duration: 30 day, Stop date: 13:30:00 CDT Start Date: 11/12/18 Stop Date: 11/13/18 Status: Discontinued morphine Sulfate 2 mg, 1 mL, Route: IVP, Drug form: SOLN, Q2H, Dosing Weight 61.818, kg, PRN Ches t Pain, Start date: 11/12/18 13:49:00 RAGMAN, Duration: 30 day, Stop date: 12/12/18 13:48:00 CDT Start Date: 11/12/18 Stop Date: 11/13/18 Status: Discontinued Mucinex 600 mg, 1 tab, Route: PO, Drug form: ERTAB, Q12H, Dosing Weight 61.818, kg, PRN Congestion, Start date: 11/12/18 13:31:00 RAGMAN, Duration: 30 day, Stop date: 11/26 04/15 13:30:00 CDT Notes: (Same as: Guaifenesin LA, Humibid LA, Mucinex)"Do Not Crush" Take medica tion with plenty of water. Start Date: 11/12/18 Stop Date: 11/13/18 Status: Discontinued nicotine 21 mg, 1 patch, Route: TOP, Drug form: ERFILM, Daily, Dosing Weight 61.818, kg, PRN as needed for smoking cessation, Start date: 11/12/18 13:31:00 RAGMAN, Duration : 30 day, Stop date: 12/12/18 13:30:00 CDT Notes: (Same as: Habitrol)"Remove old patch before application of new patch"WAST E: F/P - P Waste Black; E - P Waste Black Start Date: 11/12/18 Stop Date: 11/13/18 Status: Discontinued Nitrostat 0.4 mg sublingual tablet 0.4 mg, 1 tab, Route: SL, Drug form: TAB, Q5Min, Dosing Weight 61.818, kg, PRN C hest Pain, Start date: 11/12/18 13:49:00 RAGMAN, Duration: 3 doses or times, Stop d ate: Limited # of times Notes: (Same as:Nitroquick, Nitrostat)"Do Not Crush" Sublingual tablet Start Date: 11/12/18 Stop Date: 11/13/18 Status: Discontinued Gowrie 5/325 oral tablet 1 tab, Route: PO, Drug Form: TAB, Dosing Weight 61.818, kg, Q6H, PRN Pain Score 1-3, Start date: 11/12/18 13:31:00 RAGMAN, Duration: 30 day, Stop date: 12/12/18 13 :30:00 CDT Notes: (Same as: Gowrie 325/5) Do not exceed 4gm/day of acetaminophen. Start Date: 11/12/18 Stop Date: 11/13/18 Status: Discontinued NS 1,000 mL 1,000 mL, Rate: 75 ml/hr, Infuse over: 13.3 hr, Route: IV, Dosing Weight 61.818 kg, Total Volume: 1,000, Start date: 11/12/18 13:33:00 RAGMAN, Duration: 30 day, St op date: 12/12/18 13:32:00 CDT, 1.64, m2 Start Date: 11/12/18 Stop Date: 11/13/18 Status: Discontinued ondansetron 4 mg, 2 mL, Route: IVP, Drug form: INJ, Q6H, Dosing Weight 61.818, kg, PRN Nause a & Vomiting, Start date: 11/12/18 13:31:00 RAGMAN, Duration: 30 day, Stop date: 12/12/18 13:30:00 CDT Notes: (Same as: Malvin) MEDICATION WASTE Product Size: 4 mgProduct Was eddy: ___ mg Start Date: 11/12/18 Stop Date: 11/13/18 Status: Discontinued polyethylene glycol 3350 17 gm, 1 pkt, Route: PO, Drug form: PWDR, Daily, Dosing Weight 61.818, kg, PRN C onstipation, Start date: 11/12/18 13:31:00 RAGMAN, Duration: 30 day, Stop date: 13:30:00 CDT Notes: Dissolve in 8 oz of water or juice.(Same as: Miralax) Start Date: 11/12/18 Stop Date: 11/13/18 Status: Discontinued pramipexole 0.25 mg, 2 tab, Route: PO, Drug form: TAB, Daily, Dosing Weight 61.818, kg, Star t date: 11/13/18 9:00:00 RAGMAN, Duration: 30 day, Stop date: 12/12/18 9:00:00 CDT Notes: (Same as: Mirapex) Start Date: 11/13/18 Stop Date: 11/13/18 Status: Discontinued Protonix 40 mg, 1 tab, Route: PO, Drug form: ECTAB, Daily, Dosing Weight 61.818, kg, Star t date: 11/13/18 9:00:00 RAGMAN, Duration: 30 day, Stop date: 12/12/18 9:00:00 CDT Notes: Tablet should not be chewed or crushed.(Same as: Protonix) Start Date: 11/13/18 Stop Date: 11/13/18 Status: Discontinued remove patch Route: TOP, Bedtime, Drug form: ERFILM, Start date: 11/13/18 21:00:00 RAGMAN, Durat ion: 30 day, Stop date: 12/12/18 21:00:00 CDT Notes: Remove patch 12 hours after application each day. Start Date: 11/13/18 Stop Date: 11/13/18 Status: Canceled Robitussin-AC oral syrup 10 ml, Route: PO, Drug Form: LIQ, Dosing Weight 61.818, kg, Q4H, PRN Cough/Conge stion, Start date: 11/12/18 13:31:00 RAGMAN, Duration: 30 day, Stop date: 12/12/18 13:30:00 CDT Notes: (Same As: Robitussin AC) Start Date: 11/12/18 Stop Date: 11/13/18 Status: Discontinued Saline Flush 0.9% 10 mL, Route: IVP, Drug Form: INJ, Dosing Weight 68.182, kg, PRN, PRN Line Flush , Start date: 11/12/18 9:29:00 RAGMAN, Duration: 30 day, Stop date: 12/12/18 10:28: 00 CDT Notes: (Same as: BD Posiflush) Start Date: 11/12/18 Stop Date: 11/12/18 Status: Discontinued SEROquel 25 mg, 1 tab, Route: PO, Drug form: TAB, BID, Dosing Weight 61.818, kg, PRN Agit ation, Start date: 11/12/18 13:31:00 RAGMAN, Duration: 30 day, Stop date: 12/12/18 13:30:00 CDT Notes: (Same as: SEROquel) Start Date: 11/12/18 Stop Date: 11/13/18 Status: Discontinued simethicone 80 mg, 1 tab, Route: CHEW, Drug form: CHEWTAB, QID-After Meals, Dosing Weight 61 .818, kg, PRN as needed for gas, Start date: 11/12/18 13:31:00 RAGMAN, Duration: 30 day, Stop date: 12/12/18 13:30:00 CDT Notes: (Same as: Mylicon) Start Date: 11/12/18 Stop Date: 11/13/18 Status: Discontinued Sodium Chloride 0.9% (Bolus) IV 500 mL, 500 ml/hr, Infuse Over: 1 hr, Route: IV, 500, Drug form: INJ, ONCE, Prio rity: STAT, Dosing Weight 68.182 kg, Start date: 11/12/18 9:29:00 RAGMAN, Stop date : 11/12/18 9:29:00 RAGMAN Start Date: 11/12/18 Stop Date: 11/12/18 Status: Completed terbutaline 0.25 mg, 0.25 mL, Route: SUB-Q, Drug form: INJ, Q6H, Dosing Weight 61.818, kg, P RN Bradycardia, Start date: 11/12/18 13:49:00 RAGMAN, Duration: 30 day, Stop date: 12/12/18 13:48:00 CDT Notes: DO NOT USE IN ROST[employer] CL[employer] AREA(Same As: Atiya) Start Date: 11/12/18 Stop Date: 11/13/18 Status: Discontinued Tessalon Perles 100 mg, 1 cap, Route: PO, Drug form: CAP, TID, Dosing Weight 61.818, kg, PRN Cou gh, Start date: 11/12/18 13:31:00 RAGMAN, Duration: 30 day, Stop date: 12/12/18 13: 30:00 CDT Notes: (Same As: Barbara Gordillo)"Do Not Crush" Start Date: 11/12/18 Stop Date: 11/13/18 Status: Discontinued trazodone 50 mg, 1 tab, Route: PO, Drug form: TAB, Bedtime, Dosing Weight 61.818, kg, PRN Insomnia, Start date: 11/12/18 13:31:00 RAGMAN, Duration: 30 day, Stop date: 13:30:00 CDT Notes: (Same As: Everette) Start Date: 11/12/18 Stop Date: 11/13/18 Status: Discontinued Tylenol with Codeine #3 oral tablet 1 tab, PO, Q6H, PRN Pain, 0 Refill(s) Start Date: 11/12/18 Status: Ordered Results ELECTROLYTES Most recent to 1 oldest [Reference Range]: Sodium Lvl [135-145 141 mEq/L 137 mEq/L mEq/L] (11/13/18 3:22 AM) (11/12/18 9:33 AM) Potassium Lvl 4.2 mEq/L 4.6 mEq/L [3.5-5.1 mEq/L] (11/13/18 3:22 AM) (11/12/18 9:33 AM) Chloride Lvl [95-109 110 mEq/L 105 mEq/L mEq/L] *HI* (11/12/18 9:33 AM) (11/13/18 3:22 AM) CO2 [24-32 mEq/L] 26 mEq/L 29 mEq/L (11/13/18 3:22 AM) (11/12/18 9:33 AM) AGAP [10.0-20.0 9.2 mEq/L 7.6 mEq/L mEq/L] *LOW* *LOW* (11/13/18 3:22 AM) (11/12/18 9:33 AM) CHEM PANEL Most recent to 1 2 oldest [Reference Range]: Creatinine Lvl 1.60 mg/dL 2.08 mg/dL [0.50-1.40 mg/dL] *HI* *HI* (11/13/18 3:22 AM) (11/12/18 9:33 AM) eGFR 29 mL/min/1.73m2 1 21 mL/min/1.73m2 2 *NA* *NA* (11/13/18 3:22 AM) (11/12/18 9:33 AM) BUN [7-22 mg/dL] 40 mg/dL 54 mg/dL *HI* *HI* (11/13/18 3:22 AM) (11/12/18 9:33 AM) B/C Ratio [6-25] 26 *HI* (11/12/18 9:33 AM) Glucose Lvl [70-99 103 mg/dL 111 mg/dL mg/dL] *HI* *HI* (11/13/18 3:22 AM) (11/12/18 9:33 AM) Uric Acid [2.5-7.0 7.3 mg/dL mg/dL] *HI* (11/12/18 3:50 PM) Total Protein 6.5 g/dL 7.7 g/dL [6.4-8.4 g/dL] (11/13/18 3:22 AM) (11/12/18 9:33 AM) Albumin Lvl [3.5-5.0 3.1 g/dL 3.9 g/dL g/dL] *LOW* (11/12/18 9:33 AM) (11/13/18 3:22 AM) Globulin [2.7-4.2 3.4 g/dL 3.8 g/dL g/dL] (11/13/18 3:22 AM) (11/12/18 9:33 AM) A/G Ratio [0.7-1.6] 0.9 1.0 (11/13/18 3:22 AM) (11/12/18 9:33 AM) Calcium Lvl 8.8 mg/dL 9.0 mg/dL [8.5-10.5 mg/dL] (11/13/18 3:22 AM) (11/12/18 9:33 AM) Phosphorus [2.5-4.5 3.3 mg/dL mg/dL] (11/12/18 3:50 PM) Magnesium Lvl 2.5 mg/dL [1.8-2.4 mg/dL] *HI* (11/12/18 3:50 PM) ALT [0-65 unit/L] 25 unit/L 28 unit/L (11/13/18 3:22 AM) (11/12/18 9:33 AM) AST [0-37 unit/L] 36 unit/L 34 unit/L (11/13/18 3:22 AM) (11/12/18 9:33 AM) Alk Phos [39-136 74 unit/L 109 unit/L unit/L] (11/13/18 3:22 AM) (11/12/18 9:33 AM) Bili Total [0.2-1.3 0.5 mg/dL 0.7 mg/dL mg/dL] (11/13/18 3:22 AM) (11/12/18 9:33 AM) Bili Direct [0.0-0.3 0.1 mg/dL mg/dL] (11/13/18 3:22 AM) Bili Indirect 0.4 mg/dL [0.0-1.0 mg/dL] (11/13/18 3:22 AM) Vitamin D, 25-OH, 45.0 ng/mL Total [30.0-100.0 (11/12/18 3:50 PM) ng/mL] 1Result Comment: The eGFR is calculated using [...] be mul tiplied by the estimated BMI. 2Result Comment: The eGFR is calculated using the [...] BMI. CARDIAC ENZYMES Most recent to 1 2 oldest [Reference Range]: Troponin-I 0.04 ng/mL [0.00-0.40 ng/mL] (11/12/18 9:33 AM) BNP [<=100 pg/mL] 247 pg/mL 245 pg/mL *HI* *HI* (11/12/18 3:50 PM) (11/12/18 9:33 AM) LIPIDS Most recent to 1 2 oldest [Reference Range]: CHD Risk [3.90-5.80] 2.91 2.67 *LOW* *LOW* (11/13/18 3:22 AM) (11/12/18 3:50 PM) Chol [<=199 mg/dL] 192 mg/dL 187 mg/dL (11/13/18 3:22 AM) (11/12/18 3:50 PM) Trig [<=149 mg/dL] 167 mg/dL 97 mg/dL *HI* (11/12/18 3:50 PM) (11/13/18 3:22 AM) HDL [>=61 mg/dL] 66 mg/dL 70 mg/dL (11/13/18 3:22 AM) (11/12/18 3:50 PM) LDL (Calculated) 93 mg/dL 98 mg/dL [<=99 mg/dL] (11/13/18 3:22 AM) (11/12/18 3:50 PM) VLDL 33 19 *NA* *NA* (11/13/18 3:22 AM) (11/12/18 3:50 PM) SPECIAL CHEMISTRY Most recent to 1 2 oldest [Reference Range]: Hgb A1C [<=5.6 %] 6.0 % 5.9 % *HI* *HI* (11/13/18 3:22 AM) (11/12/18 3:50 PM) IMMUNOLOGY Most recent to 1 2 oldest [Reference Range]: CRP, High 5.6 mg/L Sensitivity *NA* (11/12/18 3:50 PM) Homocyst Tot 16.4 uMol/L [3.7-13.9 uMol/L] *HI* (11/12/18 3:50 PM) HEMATOLOGY Most recent to 1 2 oldest [Reference Range]: WBC [3.7-10.4 K/CMM] 6.9 K/CMM 8.3 K/CMM (11/13/18 3:22 AM) (11/12/18 9:33 AM) RBC [4.20-5.40 3.43 M/CMM 3.91 M/CMM M/CMM] *LOW* *LOW* (11/13/18 3:22 AM) (11/12/18 9:33 AM) Hgb [12.0-16.0 g/dL] 11.1 g/dL 12.6 g/dL *LOW* (11/12/18 9:33 AM) (11/13/18 3:22 AM) Hct [36.0-48.0 %] 33.3 % 38.1 % *LOW* (11/12/18 9:33 AM) (11/13/18 3:22 AM) MCV [80.0-98.0 fL] 97.0 fL 97.4 fL (11/13/18 3:22 AM) (11/12/18 9:33 AM) MCH [27.0-31.0 pg] 32.5 pg 32.3 pg *HI* *HI* (11/13/18 3:22 AM) (11/12/18 9:33 AM) MCHC [32.0-36.0 33.5 g/dL 33.2 g/dL g/dL] (11/13/18 3:22 AM) (11/12/18 9:33 AM) RDW [11.5-14.5 %] 14.8 % 15.0 % *HI* *HI* (11/13/18 3:22 AM) (11/12/18 9:33 AM) MPV [7.4-10.4 fL] 9.1 fL 9.0 fL (11/13/18 3:22 AM) (11/12/18 9:33 AM) Platelet [133-450 203 K/CMM 233 K/CMM K/CMM] (11/13/18 3:22 AM) (11/12/18 9:33 AM) Segs [45.0-75.0 %] 64.4 % (11/12/18 9:33 AM) Lymphocytes 23.6 % [20.0-40.0 %] (11/12/18 9:33 AM) Monocytes [2.0-12.0 8.6 % %] (11/12/18 9:33 AM) Eosinophils [0.0-4.0 2.9 % %] (11/12/18 9:33 AM) Basophils [0.0-1.0 0.5 % %] (11/12/18 9:33 AM) Neutrophils # 5.3 K/CMM [1.5-8.1 K/CMM] (11/12/18 9:33 AM) Lymphocytes # 1.9 K/CMM [1.0-5.5 K/CMM] (11/12/18 9:33 AM) Monocytes # [0.0-0.8 0.7 K/CMM K/CMM] (11/12/18 9:33 AM) Eosinophils # 0.2 K/CMM [0.0-0.5 K/CMM] (11/12/18 9:33 AM) Sed Rate [0-20 30 mm/hr mm/hr] *HI* (11/12/18 3:50 PM) PT [12.0-14.7 12.7 seconds seconds] (11/12/18 9:33 AM) INR [0.85-1.17] 0.97 (11/12/18 9:33 AM) PTT [22.9-35.8 28.8 seconds seconds] (11/12/18 9:33 AM) Immunizations Given and Recorded Vaccine Date Status Refusal Reason pneumococcal 23-valent vaccine 10/09/15 Given Procedures Procedure Date Related Diagnosis Body Site Status 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 Completed Cataract surgery Completed Foot joint operations Completed Social History Social History Type Response Alcohol Never Smoking Status Never smoker; Exposure to Tobacco Smoke None; Cigarette Smoking Last 365 Days No; Reg Smoking Cessation Counseling No entered on: 11/12/18 Assessment and Plan Extracted from: Title: Discharge Summary * Author: Walker Carey MD Date: 11/13/18 Discharge Information Disposition to home Condition stable Medications: See med reconciliation form Diet: Heart healthy Discharge Plan In the event of any worsening symptoms patient was a come back to the ED for further evaluation Discharge summary to greater than 35 minutes Extracted from: Title: General Admission H&P * Author: Walker Carey MD Date: 11/12/18 Impression and Plan 1. Syncopal episode of unknown etiology could be secondary to dehydration 2. History of pacemaker 3. Hypertension 4. Hypothyroidism 5. Acute kidney injury secondary to dehydration Plan: Cardiology consulted, interrogation of the pacemaker Consult with neurology, MRI of the brain, carotid ultrasound, TSH ordered Resume same antihypertensive medications Get TSH, continue with levothyroxine IV fluids PT/OT eval Lovenox for DVT prophylaxis
--- OUTSIDE RECORDS SUMMARY | 2019-03-02 14:09 | XMS REPORT | Summary of Care ---
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) - Acromioclavicular sprain (Discharge Diagnosis) - 11/08/17 Discharge Disposition: Home or Self Care Attending Physician: Dawood Temple DO Vital Signs 1 2 3 Most recent to oldest [Reference Range]: 152.4 cm (11/08/17 8:58 AM) Height 97.7 DegF (11/08/17 8:58 AM) Temperature Oral [96.4-99.1 DegF] 179/83 mmHg *HI* (11/08/17 12:30 PM) 179/83 mmHg *HI* (11/08/17 12:00 PM) 180/84 mmHg *HI* (11/08/17 11:00 AM) Blood Pressure [90-140/60-90 mmHg] 14 BRMIN (11/08/17 12:30 PM) 18 BRMIN (11/08/17 12:00 PM) 20 BRMIN (11/08/17 11:00 AM) Respiratory Rate [14-20 BRMIN] 85 bpm (11/08/17 8:58 AM) Peripheral Pulse Rate [60-100 bpm] 62.273 kg (11/08/17 8:58 AM) Weight 26.81 m2 (11/08/17 8:58 AM) Body Mass Index Problem List Condition Effective Dates Status Health Status Informant Arthritis(Confirmed) Resolved Breast ca(Confirmed) Resolved Hyperlipidemia(Confi Resolved rmed) Hypothyroidism(Confi Resolved rmed) Allergies, Adverse Reactions, Alerts Substance Reaction Severity Status NKDA Active Medications fentaNYL 50 microgram, 1 mL, Route: IVP, Drug form: INJ, ONCE, Dosing Weight 62.273, kg, Priority: STAT, Start date: 11/08/17 11:01:00 PELLET PREPARATION OPERATOR, Stop date: 11/08/17 11:01:00 PELLET PREPARATION OPERATOR Notes: (Same as: Sublimaze) Preservative free. Start Date: 11/08/17 Stop Date: 11/08/17 Status: Completed methylPREDNISolone SODium SUCCinate 125 mg, 2 mL, Route: IVP, Drug form: INJ, ONCE, Dosing Weight 62.273, kg, Priori ty: STAT, Start date: 11/08/17 12:18:00 PELLET PREPARATION OPERATOR, Stop date: 11/08/17 12:18:00 PELLET PREPARATION OPERATOR Notes: (Same as:Solu-MEDROL, A-Methapred) Start Date: 11/08/17 Stop Date: 11/08/17 Status: Completed Saline Flush 0.9% 10 mL, Route: IVP, Drug Form: INJ, Dosing Weight 62.273, kg, PRN, PRN Line Flush , Start date: 11/08/17 9:28:00 PELLET PREPARATION OPERATOR, Duration: 30 day, Stop date: 12/08/17 10:27: 00 CDT Notes: (Same as: BD Posiflush) Start Date: 11/08/17 Stop Date: 11/08/17 Status: Discontinued Results ELECTROLYTES Most recent to 1 oldest [Reference Range]: Sodium Lvl [135-145 137 mEq/L mEq/L] (11/08/17 9:41 AM) Potassium Lvl 4.6 mEq/L [3.5-5.1 mEq/L] (11/08/17 9:41 AM) Chloride Lvl [95-109 103 mEq/L mEq/L] (11/08/17 9:41 AM) CO2 [24-32 mEq/L] 25 mEq/L (11/08/17 9:41 AM) AGAP [10.0-20.0 13.6 mEq/L mEq/L] (11/08/17 9:41 AM) CHEM PANEL Most recent to 1 oldest [Reference Range]: Creatinine Lvl 1.33 mg/dL [0.50-1.40 mg/dL] (11/08/17 9:41 AM) eGFR 36 mL/min/1.73m2 1 *NA* (11/08/17 9:41 AM) BUN [7-22 mg/dL] 33 mg/dL *HI* (11/08/17 9:41 AM) B/C Ratio [6-25] 25 (11/08/17 9:41 AM) Glucose Lvl [70-99 93 mg/dL mg/dL] (11/08/17 9:41 AM) Total Protein 7.4 g/dL [6.4-8.4 g/dL] (11/08/17 9:41 AM) Albumin Lvl [3.5-5.0 3.5 g/dL g/dL] (11/08/17 9:41 AM) Globulin [2.7-4.2 3.9 g/dL g/dL] (11/08/17 9:41 AM) A/G Ratio [0.7-1.6] 0.9 (11/08/17 9:41 AM) Calcium Lvl 8.6 mg/dL [8.5-10.5 mg/dL] (11/08/17 9:41 AM) ALT [0-65 unit/L] 21 unit/L (11/08/17 9:41 AM) AST [0-37 unit/L] 22 unit/L (11/08/17 9:41 AM) Alk Phos [39-136 86 unit/L unit/L] (11/08/17 9:41 AM) Bili Total [0.2-1.3 0.3 mg/dL mg/dL] (11/08/17 9:41 AM) 1Result Comment: The eGFR is calculated using [...] Most recent to 1 oldest [Reference Range]: Total CK [12-191 108 unit/L unit/L] (11/08/17 9:41 AM) CK MB [0.5-3.6 2.8 ng/mL ng/mL] (11/08/17 9:41 AM) CK MB Index 2.6 [0.0-2.5] *HI* (11/08/17 9:41 AM) Troponin-I 0.05 ng/mL [0.00-0.40 ng/mL] (11/08/17 9:41 AM) BNP [<=100 pg/mL] 137 pg/mL *HI* (11/08/17 9:41 AM) HEMATOLOGY Most recent to 1 oldest [Reference Range]: WBC [3.7-10.4 K/CMM] 5.2 K/CMM (11/08/17 9:41 AM) RBC [4.20-5.40 3.65 M/CMM M/CMM] *LOW* (11/08/17 9:41 AM) Hgb [12.0-16.0 g/dL] 12.1 g/dL (11/08/17 9:41 AM) Hct [36.0-48.0 %] 36.0 % (11/08/17 9:41 AM) MCV [80.0-98.0 fL] 98.5 fL *HI* (11/08/17 9:41 AM) MCH [27.0-31.0 pg] 33.1 pg *HI* (11/08/17 9:41 AM) MCHC [32.0-36.0 33.6 g/dL g/dL] (11/08/17 9:41 AM) RDW [11.5-14.5 %] 13.2 % (11/08/17 9:41 AM) MPV [7.4-10.4 fL] 9.5 fL (11/08/17 9:41 AM) Platelet [133-450 204 K/CMM K/CMM] (11/08/17 9:41 AM) Segs [45.0-75.0 %] 64.9 % (11/08/17 9:41 AM) Lymphocytes 22.1 % [20.0-40.0 %] (11/08/17 9:41 AM) Monocytes [2.0-12.0 10.1 % %] (11/08/17 9:41 AM) Eosinophils [0.0-4.0 2.3 % %] (11/08/17 9:41 AM) Basophils [0.0-1.0 0.6 % %] (11/08/17 9:41 AM) Segs-Bands # 3.4 K/CMM [1.5-8.1 K/CMM] (11/08/17 9:41 AM) Lymphocytes # 1.2 K/CMM [1.0-5.5 K/CMM] (11/08/17 9:41 AM) Monocytes # [0.0-0.8 0.5 K/CMM K/CMM] (11/08/17 9:41 AM) Eosinophils # 0.1 K/CMM [0.0-0.5 K/CMM] (11/08/17 9:41 AM) Immunizations Given and Recorded Vaccine Date [...] Reg Smoking Cessation Counseling No entered on: 11/08/17 Assessment and Plan No data available for this section
--- OUTSIDE RECORDS SUMMARY | 2019-03-02 14:09 | XMS REPORT | Summary of Care ---
Author Author [facility] Organization [facility] Address Unknown Phone Unavailable Care Team Providers Care Biometrics Experimentalist Name Role Phone Sheri Dunn PCP Encounter HQ Eloina_ricky(FIN) [id number] Date(s): 12/21/15 - 12/21/15 [facility] [address] [place] [address]- [phone] Discharge Disposition: Home Attending Physician: Mary Tirado MD Referring Physician: Mary Tirado MD Vital Signs No data available for this section Problem List Condition Effective Dates Status Health Status Informant Arthritis(Confirmed) Resolved Breast ca(Confirmed) Resolved Hyperlipidemia(Confi Resolved rmed) Hypothyroidism(Confi Resolved rmed) Allergies, Adverse Reactions, Alerts Substance Reaction Severity Status NKDA Active Medications No data available for this section Results No data available for this section Immunizations Vaccine Date Refusal Reason pneumococcal 23-valent vaccine 10/09/15 Procedures Procedure Date Related Diagnosis Body Site 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 Cataract surgery Foot joint operations Social History Social History Type Response Alcohol Never Smoking Status Never smoker; Type: Cigars; Exposure to Tobacco Smoke None; Cigarette Smoking Last 365 Days No; Reg Smoking Cessation Counseling No Assessment and Plan No data available for this section
--- OUTSIDE RECORDS SUMMARY | 2019-03-02 14:09 | XMS REPORT | Summary of Care ---
Author Author [facility] Organization [facility] Address Unknown Phone Unavailable Encounter MINDY Vásquez(BHAVYA) [id number] Date(s): 04/09/17 - 04/09/17 [facility] [address] [place] [address]- Discharge Disposition: Home or Self Care Attending Physician: Chance Putnam MD Referring Physician: Chance Putnam MD Vital Signs No data available for this section Problem List Condition Effective Dates Status Health Status Informant Arthritis(Confirmed) Resolved Breast ca(Confirmed) Resolved Hyperlipidemia(Confi Resolved rmed) Hypothyroidism(Confi Resolved rmed) Allergies, Adverse Reactions, Alerts Substance Reaction Severity Status NKDA Active Medications No data available for this section Results No data available for this section Immunizations Given and Recorded Vaccine Date Status [...]
--- OUTSIDE RECORDS SUMMARY | 2019-03-02 14:10 | XMS REPORT ---
Author Author Tanner Mark Organization [employer] Address Unknown Phone Unavailable Care Team Providers Care Weed Inspector Name Role Phone Tanner Mark CP Unavailable Allergies No Known Allergies Problems Problem Type Condition Code Onset Dates Condition Status Assessment Polyarthritis M13.0 Active Problem Other terminal worker (current) drug therapy Z79.899 Active Problem Piriformis syndrome of right side G57.01 Active Problem Ischiogluteal bursitis M70.70 Active Problem Piriformis syndrome of left side G57.02 Active Problem Polyarthritis M13.0 Active Problem Bursitis of hip M70.70 Active Problem Gluteal tendinitis, right hip M76.01 Active Problem Gluteal tendinitis, left hip M76.02 Active Medications Medication Code System Code Instructions Start Date End Date Status Dosage PredniSONE [facility] 78995792779 5 MG Orally Once a day Jul 19, 2018 Active 1- 2 tabs prn only Results No Known Results Summary Purpose [employer] Submission
--- OUTSIDE RECORDS SUMMARY | 2019-03-02 14:10 | XMS REPORT ---
Author Author Tanner Mark [facility] [employer] Address Unknown Phone Unavailable Care Team Providers Care Microbiology Manager Name Role Phone Tanner Mark Unavailable Allergies, Adverse Reactions, Alerts Substance Reaction Event Type N.K.D.A. Info Not Available Non Drug Allergy Problems Problem Type Condition Code Onset Dates Condition Status Assessment Polyarthritis M13.0 Active Problem Other intermediate (current) drug therapy Z79.899 Active Assessment Bursitis of hip M70.70 Active Problem Piriformis syndrome of right side G57.01 Active Problem Ischiogluteal bursitis M70.70 Active Problem Piriformis syndrome of left side G57.02 Active Problem Polyarthritis M13.0 Active Problem Bursitis of hip M70.70 Active Problem Gluteal tendinitis, right hip M76.01 Active Problem Gluteal tendinitis, left hip M76.02 Active Medications Medication Code System Code Instructions Start Date End Date Status Dosage Lyrica ND 80455660182 50 MG Orally TID Active 1 capsule Levothyroxine Sodium ND 98351476133 .05 MG Orally Once a day Active 1 tablet PredniSONE ND 92977200720 5 MG Orally Once a day Jul 19, 2018 Sep 17, 2018 Active 1-2 tabs prn only Trazodone HCl ND 94271250591 50 MG Orally Once a day Active 1 tablet at bedtime as needed Ondansetron ND 70455266994 4 MG Orally every 4 hrs Active 1 tablet on the tongue and allow to dissolve as needed Ginkgo Biloba ND 94276004058 60 MG Orally Active as directed Vitamin D3 ND 19634467089 5000 UNIT Orally Once a day Active 1 tablet Hetal Root ND 44796375315 550 MG Orally Active as directed Pramipexole Dihydrochloride ND 02256804723 0.25 MG Orally Once a day Active 1 tablet before bedtime Biotin ND 65492471576 5000 MCG Orally Once a day Active 1 capsule Amlodipine Besylate ND 06108745954 2.5 MG Orally Once a day Active 1 tablet Centrum Silver 50+Women [facility] 73328916887 - Orally Active as directed Baby Aspirin ND 0 81 MG Orally Once a day Active 1 tablet Acetaminophen-Codeine #3 [facility] 03524935748 300-30 MG Orally every 6 hrs Active 1 tablet as needed Vitamin B12 [facility] 63559143992 100 MCG Orally once a day Active as directed Vital Signs Date/Time: Jul 19, 2018 BMI 27.40 Index Weight 138 lbs Height 59.5 in Temperature 96.3 F Cardiac Monitoring Heart Rate 96 /min Blood Pressure Diastolic 78 mm Hg Blood Pressure Systolic 122 mm Hg Results No Known Results Summary Purpose [employer] Submission
--- OUTSIDE RECORDS SUMMARY | 2019-03-02 14:10 | XMS REPORT ---
Author Author Tanner Mark [facility] [employer] Address Unknown Phone Unavailable Care Team Providers Care Barrel Bander Name Role Phone Tanner Mark Unavailable Allergies, Adverse Reactions, Alerts Substance Reaction Event Type N.K.D.A. Info Not Available Non Drug Allergy Problems Problem Type Condition Code Onset Dates Condition Status Problem Bursitis of hip M70.70 Active Problem Other penitentiary (current) drug therapy Z79.899 Active Assessment Polyarthritis M13.0 Active Assessment Leg pain M79.606 Active Problem Piriformis syndrome of left side G57.02 Active Problem Piriformis syndrome of right side G57.01 Active Problem Leg pain M79.606 Active Problem Gluteal tendinitis, left hip M76.02 Active Problem Polyarthritis M13.0 Active Problem Ischiogluteal bursitis M70.70 Active Problem Gluteal tendinitis, right hip M76.01 Active Medications Medication Code System Code Instructions Start Date End Date Status Dosage Lyrica ND 70158723612 50 MG Orally TID Active 1 capsule Baby Aspirin NDC 0 81 MG Orally Once a day Active 1 tablet Centrum Silver 50+Women ND 22892024733 - Orally Active as directed Trazodone HCl ND 87312730682 50 MG Orally Once a day Active 1 tablet at bedtime as needed PredniSONE ND 29130482976 5 Active TAKE 1- 2 TABLET BY MOUTH EVERY DAY NEEDED Acetaminophen-Codeine #3 ND 50173943034 300-30 MG Orally every 6 hrs Active 1 tablet as needed Hetal Root ND 73774785774 550 MG Orally Active as directed Ondansetron ND 50846431862 4 MG Orally every 4 hrs Active 1 tablet on the tongue and allow to dissolve as needed Pramipexole Dihydrochloride ND 75139645238 0.25 MG Orally Once a day Active 1 tablet before bedtime Biotin ND 80269949135 5000 MCG Orally Once a day Active 1 capsule Amlodipine Besylate ND 83606331784 2.5 MG Orally Once a day Active 1 tablet Ginkgo Biloba [facility] 08756315425 60 MG Orally Active as directed Vitamin B12 [facility] 68375741145 100 MCG Orally once a day Active as directed Levothyroxine Sodium [facility] 86337065483 .05 MG Orally Once a day Active 1 tablet Vitamin D3 [facility] 07420254371 5000 UNIT Orally Once a day Active 1 tablet Vital Signs Date/Time: Oct 20, 2018 BMI 28.01 Index Weight 138.7 lbs Height 59 in Temperature 97.4 F Cardiac Monitoring Heart Rate 72 /min Blood Pressure Diastolic 62 mm Hg Blood Pressure Systolic 126 mm Hg Results No Known Results Summary Purpose [employer] Submission
--- OUTSIDE RECORDS SUMMARY | 2019-03-02 14:10 | XMS REPORT ---
Author Author Tanner Mark [facility] [employer] Address Unknown Phone Unavailable Care Team Providers Care Alteration Specialist Name Role Phone Tanner Mark Unavailable Allergies, Adverse Reactions, Alerts Substance Reaction Event Type N.K.D.A. Info Not Available Non Drug Allergy Problems Problem Type Condition Code Onset Dates Condition Status Assessment Bursitis of hip M70.70 Active Problem Other intermediate (current) drug therapy Z79.899 Active Assessment Polyarthritis M13.0 Active Problem Piriformis syndrome of right side G57.01 Active Problem Ischiogluteal bursitis M70.70 Active Problem Piriformis syndrome of left side G57.02 Active Problem Polyarthritis M13.0 Active Problem Bursitis of hip M70.70 Active Problem Gluteal tendinitis, right hip M76.01 Active Problem Gluteal tendinitis, left hip M76.02 Active Medications Medication Code System Code Instructions Start Date End Date Status Dosage Pramipexole Dihydrochloride [facility] 82450391911 0.25 MG Orally Once a day Active 1 tablet before bedtime Trazodone HCl ND 88050038887 50 MG Orally Once a day Active 1 tablet at bedtime as needed Baby Aspirin ND 0 81 MG Orally Once a day Active 1 tablet Ondansetron ND 46704837893 4 MG Orally every 4 hrs Active 1 tablet on the tongue and allow to dissolve as needed Acetaminophen-Codeine #3 ND 12684977232 300-30 MG Orally every 6 hrs Active 1 tablet as needed Vitamin B12 ND 49739261689 100 MCG Orally once a day Active as directed PredniSONE ND 46548024321 5 MG Orally Once a day Jul 19, 2018 Active 1- 2 tabs prn only Levothyroxine Sodium ND 36173124635 .05 MG Orally Once a day Active 1 tablet Hetal Root ND 94715991946 550 MG Orally Active as directed Ginkgo Biloba [facility] 25055926823 60 MG Orally Active as directed Lyrica ND 42083094692 50 MG Orally TID Active 1 capsule Centrum Silver 50+Women [facility] 91437049673 - Orally Active as directed PredniSONE [facility] 63670525643 5 Active TAKE 1- 2 TABLET BY MOUTH EVERY DAY NEEDED Biotin [facility] 07099045778 5000 MCG Orally Once a day Active 1 capsule Amlodipine Besylate [facility] 63879469823 2.5 MG Orally Once a day Active 1 tablet Vitamin D3 [facility] 56521414704 5000 UNIT Orally Once a day Active 1 tablet Vital Signs Date/Time: Sep 10, 2018 BMI 28.31 Index Weight 140.2 lbs Height 59 in Temperature 98.3 F Cardiac Monitoring Heart Rate 64 /min Blood Pressure Diastolic 90 mm Hg Blood Pressure Systolic 136 mm Hg Results No Known Results Summary Purpose [employer] Submission
--- OUTSIDE RECORDS SUMMARY | 2019-03-02 14:10 | XMS REPORT ---
Author Author Tanner Mark [facility] [employer] Address Unknown Phone Unavailable Care Team Providers Care Guest Advisor Name Role Phone Tanner Mark Unavailable Allergies, Adverse Reactions, Alerts Substance Reaction Event Type N.K.D.A. Info Not Available Non Drug Allergy Problems Problem Type Condition Code Onset Dates Condition Status Assessment Bursitis of hip M70.70 Active Problem Other termite helper (current) drug therapy Z79.899 Active Assessment Polyarthritis M13.0 Active Assessment Ischiogluteal bursitis M70.70 Active Assessment Gluteal tendinitis, right hip M76.01 Active Problem Piriformis syndrome of right side G57.01 Active Problem Ischiogluteal bursitis M70.70 Active Problem Piriformis syndrome of left side G57.02 Active Problem Polyarthritis M13.0 Active Problem Bursitis of hip M70.70 Active Problem Gluteal tendinitis, right hip M76.01 Active Problem Gluteal tendinitis, left hip M76.02 Active Medications Medication Code System Code Instructions Start Date End Date Status Dosage Centrum Silver 50+Women [facility] 00274511022 - Orally Active as directed Baby Aspirin ND 0 81 MG Orally Once a day Active 1 tablet Amlodipine Besylate ND 11841624078 2.5 MG Orally Once a day Active 1 tablet Vitamin D3 [facility] 66433606169 5000 UNIT Orally Once a day Active 1 tablet Vitamin B12 [facility] 50813160545 100 MCG Orally once a day Active as directed Levothyroxine Sodium ND 06287601725 .05 MG Orally Once a day Active 1 tablet Lyrica ND 62569699700 50 MG Orally TID Active 1 capsule Biotin ND 12457643906 5000 MCG Orally Once a day Active 1 capsule Trazodone HCl ND 44117400232 50 MG Orally Once a day Active 1 tablet at bedtime as needed Pramipexole Dihydrochloride ND 66191543380 0.25 MG Orally Once a day Active 1 tablet before bedtime PredniSONE ND 46405692259 5 MG Orally Once a day Jun 07, 2018 Jun 22, 2018 Active 10mg x 1wk, 5mg x 1wk, 2.5mg x 1wk Acetaminophen-Codeine #3 [facility] 71560033507 300-30 MG Orally every 6 hrs Active 1 tablet as needed Vital Signs Date/Time: Jun 07, 2018 BMI 26.77 Index Weight 137.1 lbs Height 60 in Temperature 98.4 F Cardiac Monitoring Heart Rate 78 /min Blood Pressure Diastolic 82 mm Hg Blood Pressure Systolic 148 mm Hg Results No Known Results Summary Purpose [employer] Submission
--- OUTSIDE RECORDS SUMMARY | 2019-03-02 14:10 | XMS REPORT ---
Author Author Tanner Mark Organization [employer] Address Unknown Phone Unavailable Care Team Providers Care It Communications Manager Name Role Phone Tanner Mark CP Unavailable Allergies No Known Allergies Problems Problem Type Condition Code Onset Dates Condition Status Problem Other intermediate school teacher (current) drug therapy Z79.899 Active Problem Piriformis syndrome of right side G57.01 Active Problem Ischiogluteal bursitis M70.70 Active Problem Piriformis syndrome of left side G57.02 Active Problem Polyarthritis M13.0 Active Problem Bursitis of hip M70.70 Active Problem Gluteal tendinitis, right hip M76.01 Active Problem Gluteal tendinitis, left hip M76.02 Active Medications No Known Medications Results No Known Results Summary Purpose [employer] Submission
--- OUTSIDE RECORDS SUMMARY | 2019-03-02 14:10 | XMS REPORT ---
Author Marco Antonio Shi Organization [employer] Address Unknown Phone Unavailable Care Team Providers Care Smash Piecer Name Role Phone Marco Antonio Zaman CP Unavailable Allergies No Known Allergies Problems Problem Type Condition Code Onset Dates Condition Status Problem Other custodial (current) drug therapy Z79.899 Active Problem Piriformis syndrome of right side G57.01 Active Problem Ischiogluteal bursitis M70.70 Active Problem Piriformis syndrome of left side G57.02 Active Problem Polyarthritis M13.0 Active Problem Bursitis of hip M70.70 Active Problem Gluteal tendinitis, right hip M76.01 Active Problem Gluteal tendinitis, left hip M76.02 Active Medications No Known Medications Results No Known Results Summary Purpose [employer] Submission
[2019-03-02] MEDS ORDERED: ASPIRIN 81 MG CHEW TAB PO ONE (14:30)
[2019-03-02] MEDS ORDERED: SODIUM CHLORIDE 0.9% 1000ML 1,000 ML IV STA (14:33)
[2019-03-02] MEDS ORDERED: CEFEPIME 1GM/NS 0.9% 50 ML 50 ML IV SCH (14:45)
[2019-03-02] MEDS ORDERED: VANCOMYCIN 1GM/NS 250 ML 250 ML IV SCH (14:45)
[2019-03-02 15:08] LABS: BASOPHILS % 0.1 % (0.0-1.0); EOSINOPHILS # (AUTO) 0.1 (0.0-0.4); EOSINOPHILS % 0.7 % (0.0-6.0); HEMATOCRIT 31.3 % (34.2-44.1); HEMOGLOBIN 9.9 g/dL (12.0-16.0); LYMPHOCYTES # (AUTO) 1.3 (1.0-3.2); LYMPHOCYTES % 9.2 % (18.0-39.1); MEAN CORPUSCULAR HGB CONC 31.6 g/dL (31-35); MEAN CORPUSCULAR VOLUME 94.8 fL (81-99); MONOCYTES # (AUTO) 0.8 (0.2-0.8); MONOCYTES % 6.1 % (4.4-11.3); NEUTROPHILS # (AUTO) 11.4 (2.1-6.9); NEUTROPHILS % 83.5 % (38.7-80.0); PLATELET COUNT 368 x10e3/uL (140-360); RED CELL DISTRIBUTION WIDTH 13.9 % (11.7-14.4)
[2019-03-02 15:17] LABS: INR 1.18; PARTIAL THROMBOPLASTIN TIME 38.5 seconds (23.8-35.5); PROTHROMBIN TIME 15.6 seconds (11.9-14.5)
[2019-03-02 15:21] LABS: BILIRUBIN,URINE NEGATIVE (NEGATIVE); CLARITY,URINE CLEAR (CLEAR); COLOR,URINE YELLOW (YELLOW); KETONES,URINE NEGATIVE (NEGATIVE); LEUKOCYTE ESTERASE ,URINE NEGATIVE (NEGATIVE); NITRITE,URINE NEGATIVE (NEGATIVE); PROTEIN,URINE DIPSTICK 2+ (NEGATIVE); URINE UROBILINOGEN 1 mg/dL (0.2 - 1)
[2019-03-02 15:27] LABS: ALBUMIN 2.9 g/dL (3.5-5.0); ALBUMIN/GLOBULIN RATIO 0.7 (0.8-2.0); ANION GAP 13.2 mmol/L (8-16); CALCIUM 9.1 mg/dL (8.4-10.2); CREATININE, SERUM 1.65 mg/dL (0.57-1.11); MAGNESIUM 1.9 MG/DL (1.3-2.1); POTASSIUM 3.2 mmol/L (3.5-5.1)
[2019-03-02 15:32] LABS: BACTERIA,URINE MANY /HPF; EPITHELIAL CELLS,URINE MODERATE /LPF
[2019-03-02 15:39] LABS: B-TYPE NATRIURETIC PEPTIDE2 813.5 pg/mL (0-100)
[2019-03-02 15:47] LABS: CREATINE KINASE MB 2.4 ng/mL (0-5.0); THYROID STIMULATING HORMONE 1.914 uIU/mL (0.350-4.940)
--- NOTE | 2019-03-02 16:34 | Diagnostic Imaging Report ---
Examination: Single AP view of the chest. COMPARISON: None available INDICATION: Pneumonia DISCUSSION: The lungs are reasonably well inflated with patchy consolidations in the right upper lobe and lower lobe. No pleural effusion or pneumothorax. Right subclavian approach implantable cardiac device body projects over the right axilla. Leads project over the right atrium and right ventricle. Tortuous thoracic aorta. Heart size is normal for technique and degree of lung inflation. No overt pulmonary edema. Suspected posttraumatic deformity of the proximal left humerus. Advanced right glenohumeral and acromioclavicular arthrosis. No acute osseous abnormality. IMPRESSION: Findings suggest multifocal pneumonia involving the right upper and lower lobes. Follow-up chest radiograph in 6-8 weeks is suggested to document resolution after appropriate treatment. Signed by: Dr. Rogelio Joe M.D. on 03/02/2019 4:31 PM
[2019-03-02] MEDS ORDERED: POTASSIUM CHLORIDE 10MEQ EA PO ONE (17:00)
--- NOTE | 2019-03-02 18:06 | NUR ---
received patient in stretcher from ER, AAOx4, resp even and unlabored. denies pain. oriented to room and use of call light. call light placed within reach.
--- NOTE | 2019-03-02 19:26 | NUR ---
per in ER, Nurse Alfa administered KCL 40meq x 1dose while patient was still in ER.
--- NOTE | 2019-03-02 19:55 | NUR ---
Patient received sitting up in bed. Daughter at bedside. AAO x 3. Admission history obtained. Initial physical assessment completed. IVF infusing at 75 cc/hr. Patient had no complaints of pain except intermittent cough. 2L NC placed on patient. Patient oriented to room, call light and plan of care. Patient instructed to call for assistance when needed. Fall precautions implemented. Call light within reach.
[2019-03-02] MEDS: KCL 20MEQ/.9 SOD CHL 1,000 ML IV SCH (20:15)
[2019-03-02 20:19] VITALS: BP 153/86
--- NOTE | 2019-03-02 20:25 | NUR ---
Patient off floor for CT chest via wheelchair.
--- NOTE | 2019-03-02 20:55 | NUR ---
Patient back to floor from CT chest. Patient in stable condition.
[2019-03-02 21:00] VITALS: BP 153/86
[2019-03-02] MEDS: AZITHROMYCIN 500MG/NS 250 ML 250 ML IV SCH (21:15)
--- NOTE | 2019-03-02 21:26 | Diagnostic Imaging Report ---
EXAM: CT Chest WITHOUT contrast INDICATION: ^pneumonia COMPARISON: Same day chest x-ray TECHNIQUE: Chest was scanned utilizing a multidetector helical scanner from the lung apex through the level of the adrenal glands without administration of IV contrast. Absence of intravenous contrast decreases sensitivity for detection of lymphadenopathy and vascular pathology. Coronal and sagittal reformations were obtained. Routine protocol was performed. IV CONTRAST: None COMPLICATIONS: None RADIATION DOSE: Total DLP: 833.24 mGy*cm Estimated effective dose: (DLP x 0.014 x size factor) mSv CTDIvol has been reviewed. It is below the limits set by the Radiation Protocol Committee (RPC). FINDINGS: LINES/ TUBES: Right chest wall cardiac device in place with distal leads terminating in right ventricle and right atrium. LUNGS AND AIRWAYS: Intralobular septal thickening. Multifocal bilateral consolidations. There are also scattered nodular densities, for example 7 mm nodule in left lower lobe (series 6, image 57). Airways are normal. PLEURA: Small bilateral pleural effusions. HEART AND MEDIASTINUM: The thyroid gland is normal. Right paratracheal lymph nodes, measuring up to 1.2 cm. No axillary lymphadenopathy. Limited for evaluation of hilar regions without intravenous contrast. The heart is enlarged. Trace pericardial fluid. Moderate to severe atherosclerotic calcification of coronary arteries. UPPER ABDOMEN: Thickening of the left adrenal gland, likely due to hyperplasia. Otherwise, unremarkable. BONES: Degenerative changes of the bilateral glenohumeral joints and thoracic spine. Partially seen cervical spine fusion hardware. There is grade 1 retrolisthesis of T2 relation to T1. SOFT TISSUES: Unremarkable. IMPRESSION: Multifocal bilateral airspace opacities, representing multifocal pneumonia. Scattered nodular densities are probably infectious/inflammatory as well. Recommend follow-up to ensure resolution. Small bilateral pleural effusions. Interlobular septal thickening, suggestive of mild edema. Signed by: Dr. Salo Das MD on 03/02/2019 9:23 PM
[2019-03-02] MEDS ORDERED: MELATONIN3 MG PO (21:30)
--- NOTE | 2019-03-02 21:37 | NUR ---
Patient complained of cough and needing medication for sleep. Dr. Grace Núñez notified. New orders received.
[2019-03-02] MEDS: BENZONATATE 100 MG CAP PO PRN (22:00)
[2019-03-02] MEDS: PIPER-TAZ 3.375 GM 50 ML IV SCH (22:15)
--- NOTE | 2019-03-02 22:30 | NUR ---
Blood specimen sent to lab for analysis of cardiac enzymes.
[2019-03-02 23:22] LABS: CREATINE KINASE MB 1.6 ng/mL (0-5.0)
[2019-03-03] VITALS (10 sets, daily range): BP systolic 138–182; BP diastolic 72–101
[2019-03-03] MEDS: PIPER-TAZ 3.375 GM 50 ML IV SCH ×5 (02:53→22:43)
--- NOTE | 2019-03-03 04:15 | NUR ---
Patient assisted to the bathroom utilizing her private cane. Patient offered the use of a bedside commode already present in the room and a walker; but she declined. Patient 's gait noted to be unsteady.
[2019-03-03 05:35] LABS: BASOPHILS % 0.2 % (0.0-1.0); EOSINOPHILS # (AUTO) 0.2 (0.0-0.4); EOSINOPHILS % 1.2 % (0.0-6.0); HEMATOCRIT 31.7 % (34.2-44.1); HEMOGLOBIN 10.4 g/dL (12.0-16.0); LYMPHOCYTES # (AUTO) 1.2 (1.0-3.2); LYMPHOCYTES % 9.3 % (18.0-39.1); MEAN CORPUSCULAR HEMOGLOBIN 30.3 pg (28-32); MEAN CORPUSCULAR HGB CONC 32.8 g/dL (31-35); MEAN CORPUSCULAR VOLUME 92.4 fL (81-99); MONOCYTES # (AUTO) 0.9 (0.2-0.8); MONOCYTES % 7.2 % (4.4-11.3); NEUTROPHILS # (AUTO) 10.5 (2.1-6.9); NEUTROPHILS % 81.6 % (38.7-80.0); PLATELET COUNT 354 x10e3/uL (140-360); RED BLOOD COUNT 3.43 x10e6/uL (3.6-5.1); RED CELL DISTRIBUTION WIDTH 14.2 % (11.7-14.4)
[2019-03-03] MEDS: LEVOTHYROXINE SODIUM 50 MCG TAB PO SCH (05:43)
[2019-03-03 05:44] LABS: ALBUMIN 2.6 g/dL (3.5-5.0); ALBUMIN/GLOBULIN RATIO 0.6 (0.8-2.0); ANION GAP 12.3 mmol/L (8-16); CALCIUM 8.9 mg/dL (8.4-10.2); CREATININE, SERUM 1.29 mg/dL (0.57-1.11); POTASSIUM 3.3 mmol/L (3.5-5.1)
[2019-03-03 06:25] LABS: CREATINE KINASE MB 1.5 ng/mL (0-5.0)
--- NOTE | 2019-03-03 06:28 | Diagnostic Imaging Report ---
EXAMINATION: CHEST SINGLE (PORTABLE) INDICATION: ^1 ^[id number] ^[id number] COMPARISON: Chest CT and x-ray dated 03/02/2019 FINDINGS: AP view TUBES and LINES: Stable right chest wall cardiac device. LUNGS: Lungs are well inflated. Again seen bilateral multifocal airspace opacities. Mild interstitial edema. PLEURA: No pneumothorax. Small bilateral pleural effusions. HEART AND MEDIASTINUM: The cardiomediastinal silhouette is enlarged. BONES AND SOFT TISSUES: No acute osseous lesion. Soft tissues are unremarkable. UPPER ABDOMEN: No free air under the diaphragm. IMPRESSION: No significant interval change from prior x-ray. Signed by: Dr. Salo Das MD on 03/03/2019 6:25 AM
--- NOTE | 2019-03-03 06:47 | NUR ---
Walking rounds done. Shift report given to oncoming nurse.
[2019-03-03] MEDS ORDERED: PREGABALIN 50 MG CAP PO SCH (09:00)
[2019-03-03] MEDS ORDERED: AMLODIPINE BESYLATE PO SCH (09:00)
[2019-03-03] MEDS: ASPIRIN 81 MG CHEW TAB PO SCH (09:18)
[2019-03-03] MEDS: KCL 20MEQ/.9 SOD CHL 1,000 ML IV SCH (09:18)
[2019-03-03] MEDS: AMLODIPINE BESYLATE 5 MG TAB PO SCH (09:20)
[2019-03-03 09:59] LABS: THYROID STIMULATING HORMONE 2.646 uIU/mL (0.350-4.940)
[2019-03-03] MEDS: HEPARIN SOD (PORCINE) 5,000 UNIT/ML VIAL SC SCH ×2 (11:08→20:21)
[2019-03-03] MEDS ORDERED: GABAPENTIN300 MG PO (11:17)
[2019-03-03 11:47] LABS: FREE THYROXINE INDEX 2.1367 (1.4-3.8)
[2019-03-03] MEDS: ALBUTEROL SULF 0.083% NEB SOLN 3 ML NEB NEB SCH ×2 (12:00→19:35)
--- NOTE | 2019-03-03 15:34 | NUR ---
Nutrition Screen Note RD Recommendation for Physician: -Continue current diet as ordered Plan of Care: RD following, monitoring for tolerance and adequacy Nutrition reason for involvement: Nutrition Risk Trigger MST Primary Diagnose(s): Healthcare acquired PNA PMH: no H&P in chart Ht: 59in Wt: 132lb BMI: 26.7kg/m2 IBW: 98lb RD Assessment: (03/03) Chart reviewed. Labs and meds reviewed. 88yo F, who was admitted for PNA. 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 No complains of nausea or vomiting. Pt reported of constipation and meds were given (per pt). Pt denied any issue with chewing or swallowing. No significant weight loss reported. Will continue to monitor and follow. Current Diet: cardiac diet Malnutrition Evaluation (03/03/2019) The patient does not meet criteria for a specified degree of malnutrition at this time. Will re-evaluate at follow-up as appropriate. Diet Education Needs Assessment: Diet education not indicated. Nutrition Care Level: low Signed: Dara Sheikh, MS, RD, LD
--- NOTE | 2019-03-03 17:03 | Consultation ---
DATE OF CONSULTATION: Pulmonary Consultation ADDITIONAL REFERRING PHYSICIANS: 1. . 2. Donna Frank MD. 3. Yue Cheney DO. HISTORY OF PRESENT ILLNESS: A charming, but unfortunate 88-year-old woman, admitted with cough, general restlessness over 3 days. Lives with her daughter, who is on vacation. History of sick sinus syndrome with pacemaker. Denies fever or chills. Sputum has been scanty and clear. She worked as [employer] boards [place], [place]. She has had only nerve entrapment surgery. SOCIAL HISTORY: Nonsmoker. No alcohol. FAMILY HISTORY: Positive for coronary artery disease in both parents. PAST MEDICAL HISTORY: She has a history of restless legs syndrome, peripheral neuropathy, hypothyroidism. MEDICATIONS: Include: 1. Synthroid. 2. Melatonin. 3. Lyrica. 4. Aspirin. 5. Amlodipine. 6. Omeprazole. 7. Multivitamin. 8. B12. 9. Tylenol with Codeine. 10. Aspirin. 11. Suboxone. 12. Lyrica. PHYSICAL EXAMINATION: GENERAL: This brightly white female, in no acute distress, looking her stated age. VITAL SIGNS: Temperature 98.4, pulse 83, blood pressure 124/80. HEAD: Normocephalic, atraumatic. EYES: Extraocular movements intact. LUNGS: Bilateral rales. HEART: Regular rhythm. EXTREMITIES: Not edematous. Bruising is noted. ASSESSMENT AND PLAN: Therapy of community-acquired pneumonia. There is some history of dysphagia. Continue physical therapy, prophylactic heparin, supplemental oxygen as needed. Continue home medication. Thank you for this kind referral. Rogelio Campbell MD DS/MODL /[id number]
--- NOTE | 2019-03-03 17:12 | History and Physical ---
CHIEF COMPLAINT: Cough and fever. HISTORY OF PRESENT ILLNESS: The patient is an 88-year-old female, who came in with cough and fever. The patient was having increasing shortness of breath. The patient stated that this has been going on for the past two days. When she presented to the emergency room, she had a chest x-ray done showing a possible suggestive of pneumonia in the right upper and lower lobe. The patient then had a CT scan of the chest done show multilobe focal bilateral airspace opacity represent multifocal pneumonia, scattered nodular density, infectious etiology. The patient is admitted for IV antibiotics. PAST MEDICAL HISTORY: Right permanent pacemaker, hypothyroidism, hypertension, osteoarthritis. PAST SURGICAL HISTORY: Right permanent pacemaker. Right ulnar nerve transposition and right open carpal tunnel release. ALLERGIES: NO KNOWN ALLERGIES. HOME MEDICATIONS: List reviewed. REVIEW OF SYSTEMS: Cough and low-grade fever. PHYSICAL EXAMINATION: VITAL SIGNS: Temperature is 98, blood pressure 154/91, pulse rate is 83, respirations 20. GENERAL: The patient is not in acute distress. She is awake. HEENT: Normocephalic, atraumatic. Anicteric. NECK: Supple grossly. PULMONARY: Diminished breath sounds without any wheezing. Some courses on the right lung. CARDIOVASCULAR: Regular rate and rhythm. ABDOMEN: Soft, nontender, non-distention. EXTREMITIES: No cyanosis or edema. NEUROLOGIC: No focal deficit. LABORATORY DATA: WBC 13.6, hemoglobin 9.9, hematocrit 31.3, and platelets 368. Sodium is 134, potassium 3.2, chloride 100, bicarb 25, BUN is 23, creatinine 1.3, glucose is 111. CT scan showed multilobar pneumonia on the right. IMPRESSION: 1. Multilobar pneumonia, community-acquired pneumonia. 2. Multiple chronic medical problems. PLAN: Continue with IV antibiotics. PT, OT. Repeat lab work. We will monitor the patient closely. Correct electrolyte. MD CHARLES Kirk/LIDIA /[id number]
[2019-03-03] MEDS: GABAPENTIN 300 MG CAP PO SCH (17:36)
[2019-03-03] MEDS: SENNA-S TABLET PO SCH (17:36)
[2019-03-03] MEDS: AZITHROMYCIN 500MG/NS 250 ML 250 ML IV SCH (20:18)
[2019-03-03] MEDS: MELATONIN 5 MG TABLET PO SCH (20:19)
[2019-03-03] MEDS: HYDRALAZINE HCL 25 MG TAB PO PRN (20:19)
[2019-03-03] MEDS: ACETAMINOPHEN/CODEINE 300MG - 30MG TAB PO PRN (21:00)
[2019-03-04] VITALS (7 sets, daily range): BP systolic 129–158; BP diastolic 72–93
[2019-03-04] MEDS: BENZONATATE 100 MG CAP PO PRN ×2 (01:35→21:06)
[2019-03-04] MEDS: KCL 20MEQ/.9 SOD CHL 1,000 ML IV SCH ×2 (03:29→13:38)
[2019-03-04] MEDS: PIPER-TAZ 3.375 GM 50 ML IV SCH ×4 (03:29→22:49)
[2019-03-04] MEDS: LEVOTHYROXINE SODIUM 50 MCG TAB PO SCH (05:40)
[2019-03-04] MEDS: ALBUTEROL SULF 0.083% NEB SOLN 3 ML NEB NEB SCH ×3 (06:00→19:20)
[2019-03-04] MEDS: ASPIRIN 81 MG CHEW TAB PO SCH (09:45)
[2019-03-04] MEDS: HEPARIN SOD (PORCINE) 5,000 UNIT/ML VIAL SC SCH ×2 (09:45→21:23)
[2019-03-04] MEDS: SENNA-S TABLET PO SCH ×2 (09:45→16:30)
[2019-03-04] MEDS: GABAPENTIN 300 MG CAP PO SCH ×2 (09:45→16:30)
[2019-03-04] MEDS: AMLODIPINE BESYLATE 5 MG TAB PO SCH (09:45)
--- NOTE | 2019-03-04 16:30 | NUR ---
Call from Tele letting me know that patient's heart rate is paced at 128 and O2 saturation is down to 86%. Patient is sitting up in bed. No distress noted. Patient has no complaints of pain. Call placed to Dr. Núñez. Orders received and implemented.
[2019-03-04] MEDS ORDERED: METOPROLOL TARTRATE 50 MG TAB PO NR (17:00)
[2019-03-04] MEDS: METOPROLOL TARTRATE 50 MG TAB PO SCH (18:11)
--- NOTE | 2019-03-04 19:00 | NUR ---
Received patient lying in bed in no acute distress, patient is alert and oriented, safety and fall precautions maintained as per hospital protocol: bed in lowest position and locked, needed items beside bed and call mariscal placed close to patient, patient instructed to use it to call nurses for any assistance needed patient verbalized understanding.
--- NOTE | 2019-03-04 19:26 | NUR ---
Spoke with home service technician, heart rate is paced at 86. Lopressor administered at 1811. Patient is complaining of increased shortness of breath. Respiratory notified regarding breathing treatment. Patient's O2 saturation is 95%. RT stated they would be here shortly.
[2019-03-04] MEDS: AZITHROMYCIN 500MG/NS 250 ML 250 ML IV SCH (21:07)
[2019-03-04] MEDS: ACETAMINOPHEN/CODEINE 300MG - 30MG TAB PO PRN (21:07)
[2019-03-04] MEDS: MELATONIN 5 MG TABLET PO SCH (21:07)
[2019-03-05] VITALS (9 sets, daily range): BP systolic 140–197; BP diastolic 65–99
--- NOTE | 2019-03-05 | NUR ---
patient called rn and reported that she has hit the wrist against the side of the bed, she had a skin tear, skin tear was covered with gauze.
[2019-03-05] MEDS: KCL 20MEQ/.9 SOD CHL 1,000 ML IV SCH ×2 (01:35→14:55)
[2019-03-05] MEDS: PIPER-TAZ 3.375 GM 50 ML IV SCH ×4 (04:24→22:40)
[2019-03-05] MEDS: LEVOTHYROXINE SODIUM 50 MCG TAB PO SCH (06:19)
--- NOTE | 2019-03-05 07:00 | NUR ---
Patient condition throughout the night was stable, patient endorsed to next shift for continuity of care.
[2019-03-05] MEDS: ALBUTEROL SULF 0.083% NEB SOLN 3 ML NEB NEB SCH ×3 (07:15→18:40)
[2019-03-05] MEDS: METOPROLOL TARTRATE 50 MG TAB PO SCH ×2 (09:58→16:58)
[2019-03-05] MEDS: GABAPENTIN 300 MG CAP PO SCH ×2 (09:58→16:58)
[2019-03-05] MEDS: ASPIRIN 81 MG CHEW TAB PO SCH (09:58)
[2019-03-05] MEDS: AMLODIPINE BESYLATE 5 MG TAB PO SCH (09:59)
[2019-03-05] MEDS: HEPARIN SOD (PORCINE) 5,000 UNIT/ML VIAL SC SCH ×2 (09:59→21:45)
[2019-03-05] MEDS: SENNA-S TABLET PO SCH ×3 (09:59→17:00)
[2019-03-05] MEDS: BENZONATATE 100 MG CAP PO PRN (10:13)
--- NOTE | 2019-03-05 14:52 | Diagnostic Imaging Report ---
EXAMINATION: CHEST 2 VIEWS INDICATION: ^PNEUMONIA ^[id number] ^[id number] COMPARISON: Chest radiograph 03/03/2019 FINDINGS: PA and lateral views TUBES and LINES: Stable 2-lead pacemaker device in the right upper chest with leads overlying the right atrial appendage and right ventricle. LUNGS: Lungs are well inflated. Bilateral interstitial edema has decreased. No new consolidations. Bibasilar atelectasis. PLEURA: Small bilateral pleural effusions, increased since prior exam. No pneumothorax. HEART AND MEDIASTINUM: The cardiomediastinal silhouette is unremarkable. BONES AND SOFT TISSUES: Anterior fusion of the cervical spine. Degenerative changes of both glenohumeral joints. Soft tissues are unremarkable. UPPER ABDOMEN: No free air under the diaphragm. IMPRESSION: Improving interstitial edema but however, there has been mild increase in the small bilateral pleural effusions. Signed by: Dr. Bijla Rain M.D. on 03/05/2019 2:49 PM
--- NOTE | 2019-03-05 16:15 | NUR ---
SAVANNAH Grimaldo, notified me at this time that patient was found on the floor. Small skin tear to the inside of the right elbow. Notified Dr. Núñez. No new orders received. Blood pressure elevated at 197/96. Dr. Núñez aware. No new orders received. Patient states, "I fell asleep in the chair and slipped out." Call light was within reach of the patient. I have educated patient numerous times on calling for assistance. Educated patient once more. Call light is within reach.
[2019-03-05] MEDS: MELATONIN 5 MG TABLET PO SCH (21:30)
[2019-03-05] MEDS: AZITHROMYCIN 500MG/NS 250 ML 250 ML IV SCH (21:30)
[2019-03-06] VITALS (8 sets, daily range): BP systolic 142–191; BP diastolic 68–113
[2019-03-06] MEDS: PIPER-TAZ 3.375 GM 50 ML IV SCH ×4 (03:57→22:00)
[2019-03-06] MEDS: KCL 20MEQ/.9 SOD CHL 1,000 ML IV SCH ×2 (04:15→17:35)
[2019-03-06] MEDS: HYDRALAZINE HCL 25 MG TAB PO PRN (05:24)
[2019-03-06] MEDS: ALBUTEROL SULF 0.083% NEB SOLN 3 ML NEB NEB SCH ×3 (06:45→20:45)
[2019-03-06] MEDS: LEVOTHYROXINE SODIUM 50 MCG TAB PO SCH (07:40)
[2019-03-06] MEDS ORDERED: CHOLESTYRAMINE 4 GM PACKET PO PRN (08:30)
[2019-03-06] MEDS: SENNA-S TABLET PO SCH ×2 (09:00→16:17)
[2019-03-06] MEDS: GABAPENTIN 300 MG CAP PO SCH ×2 (09:40→17:28)
[2019-03-06] MEDS: METOPROLOL TARTRATE 50 MG TAB PO SCH ×2 (09:40→17:28)
[2019-03-06] MEDS: AMLODIPINE BESYLATE 5 MG TAB PO SCH (09:40)
[2019-03-06] MEDS: HEPARIN SOD (PORCINE) 5,000 UNIT/ML VIAL SC SCH ×2 (09:40→20:37)
[2019-03-06] MEDS: ASPIRIN 81 MG CHEW TAB PO SCH (09:40)
--- NOTE | 2019-03-06 12:02 | NUR ---
RECEIVED CALL FROM BEDSIDE NURSE STATING THE PT MAY DC HOME AND WILL NEED HOME O2. CALL MADE TO DR. COREAS TO GET PRESCRIPTION SIGNED. STATES THE PT IS NOT DC'ING HOME TODAY. INFORMED CM WILL LEAVE THE PRESCRIPTION FOR HOME O2 ON THE FRONT OF THE CHART FOR HIS SIGNATURE. FLOOR NURSE NOTIFIED.
--- NOTE | 2019-03-06 19:15 | NUR ---
Bedside rounds completed with morning nurse. Pt alert and orient to name. Lying in bed HOB 30 degrees. Denies pain at this time. Call mariscal within reach.
[2019-03-06] MEDS: ACETAMINOPHEN/CODEINE 300MG - 30MG TAB PO PRN (20:00)
[2019-03-06] MEDS: AZITHROMYCIN 500MG/NS 250 ML 250 ML IV SCH (20:15)
[2019-03-06] MEDS: MELATONIN 5 MG TABLET PO SCH (20:36)
[2019-03-07] VITALS: BP 162/80
[2019-03-07 04:00] VITALS: BP 176/82
[2019-03-07] MEDS: PIPER-TAZ 3.375 GM 50 ML IV SCH ×3 (04:00→17:14)
[2019-03-07] MEDS: LEVOTHYROXINE SODIUM 50 MCG TAB PO SCH (05:57)
[2019-03-07] MEDS: ALBUTEROL SULF 0.083% NEB SOLN 3 ML NEB NEB SCH ×2 (06:00→13:00)
[2019-03-07 06:26] LABS: BASOPHILS % 0.2 % (0.0-1.0); EOSINOPHILS # (AUTO) 0.3 (0.0-0.4); EOSINOPHILS % 2.3 % (0.0-6.0); HEMATOCRIT 31.5 % (34.2-44.1); HEMOGLOBIN 10.4 g/dL (12.0-16.0); LYMPHOCYTES # (AUTO) 1.1 (1.0-3.2); LYMPHOCYTES % 8.5 % (18.0-39.1); MEAN CORPUSCULAR HEMOGLOBIN 30.3 pg (28-32); MEAN CORPUSCULAR VOLUME 91.8 fL (81-99); MONOCYTES # (AUTO) 0.9 (0.2-0.8); MONOCYTES % 7.1 % (4.4-11.3); NEUTROPHILS # (AUTO) 10.1 (2.1-6.9); NEUTROPHILS % 81.3 % (38.7-80.0); PLATELET COUNT 490 x10e3/uL (140-360); RED BLOOD COUNT 3.43 x10e6/uL (3.6-5.1); RED CELL DISTRIBUTION WIDTH 14.6 % (11.7-14.4)
[2019-03-07 06:53] LABS: ANION GAP 12.3 mmol/L (8-16); CALCIUM 9.2 mg/dL (8.4-10.2); CREATININE, SERUM 0.95 mg/dL (0.57-1.11); POTASSIUM 3.3 mmol/L (3.5-5.1)
[2019-03-07] MEDS: KCL 20MEQ/.9 SOD CHL 1,000 ML IV SCH (06:55)
--- NOTE | 2019-03-07 07:00 | NUR ---
BEDSIDE SHIFT REPORT FROM GAS PUMPER RN. PT DENIES NEEDS AT THIS TIME.
[2019-03-07 08:06] VITALS: BP 173/87
[2019-03-07] MEDS: ASPIRIN 81 MG CHEW TAB PO SCH (09:40)
[2019-03-07] MEDS: METOPROLOL TARTRATE 50 MG TAB PO SCH ×2 (09:40→17:15)
[2019-03-07] MEDS: GABAPENTIN 300 MG CAP PO SCH ×2 (09:40→17:15)
[2019-03-07] MEDS: AMLODIPINE BESYLATE 5 MG TAB PO SCH (09:41)
[2019-03-07] MEDS: SENNA-S TABLET PO SCH ×2 (09:41→17:00)
[2019-03-07] MEDS: HEPARIN SOD (PORCINE) 5,000 UNIT/ML VIAL SC SCH (09:45)
[2019-03-07] MEDS ORDERED: POTASSIUM CHLORIDE 20 MEQ TAB CR PO STA (09:59)
--- NOTE | 2019-03-07 10:42 | NUR ---
CM spoke to pt regarding home oxygen order. Pt states that she was told she would be able to go home today once oxygen was delivered. States can use any company that takes her insurance. Choice letter signed for [employer], [facility], and [employer] and placed in chart. Copy to pt. CM sent referral to [employer] and notified Darwin Ha that DC pending today.
--- NOTE | 2019-03-07 11:05 | NUR ---
CM TO BEDSIDE TO DISCUSS IMM AND MEDICARE RIGHTS - QUESTIONS ANSWERED. PATIENT/FAMILY VERBALIZED UNDERSTANDING. CM OBTAINED SIGNATURE. COPY OF LETTER TO THE CHART AND COPY LEFT AT BEDSIDE.
[2019-03-07 12:20] VITALS: BP 173/87
[2019-03-07 12:43] VITALS: BP 182/95
--- NOTE | 2019-03-07 13:30 | NUR ---
Home oxygen has been delivered to bedside. CM provided pt with rolling walker. Pt signed green form. Will return form to PACU once MD signs. Pt states she is ready to discharge home. Daughter at bedside. LEANNA Villatoro notified.
[2019-03-07 16:26] VITALS: BP 171/84
--- NOTE | 2019-03-08 00:48 | Discharge Summary ---
PRIMARY CARE PHYSICIAN: Dr. Donna Frank. SPLICING MACHINE OPERATOR AUTOMATIC: Dr. Abdelrahman Baker. FINAL DIAGNOSES: 1. Status post sepsis without shock on admission. 2. Multilobar bilateral airspace opacity, multilobar pneumonia on admission. 3. Status post acute hypoxia. 4. Baseline history of right permanent pacemaker, hypothyroidism, hypertension and osteoarthritis. 5. Possible early reactive airway disease with possible early chronic obstructive pulmonary disease. SUMMARY: The patient is a stable 88 years female, who came in with associated increasing shortness of breath, fever and cough. CT scan showed multilobar pneumonia. The patient has also had wheezing. She is doing much better now. She has been on antibiotics. She is stable. The patient is improving, although she does still require oxygen support. She is doing better with respect to her breathing. She is on 2 L nasal cannula. Arrangement has been made for the patient to have oxygen at home. She has been getting Zosyn and azithromycin. The patient will be discharged home with Augmentin 875 mg p.o. with food for the next 5 days as well. She will resume all home medications. New prescription as follows. MEDICATIONS ON DISCHARGE: Questran p.r.n. for diarrhea, Lopressor 50 mg twice a day, DuoNeb q.6 p.r.n. for short of breath, ProAir 2 puffs q.4 hours as needed, Tessalon Perles 100 mg q.4h p.r.n. for cough, Tylenol No. 3 p.r.n. for pain and nebulizer given to the patient. DISCHARGE INSTRUCTIONS: The patient is otherwise stable, will be discharged home today. She will follow up with Dr. Baker as an outpatient. She will need pulmonary function tests and she will follow up with her family physician, Dr. Dr. Donna Frank within a week. The patient is stable to discharge home today. Please review imaging test as well as consultation note, and laboratory workup. MD CHARLES Kirk/MODL /[id number]
== END 2019-03-07 20:03 | disposition home or self-care (01) | DRG 871 ==
LOC: ER 14:06 → ERHOLD 15:29 → MED/SURG2 17:48
PROVIDERS: ADMIT Internal Medicine; ATTEND Internal Medicine
DX: A41.9 Sepsis, unspecified organism (principal); J18.1 Lobar pneumonia, unspecified organism; R09.02 Hypoxemia; J44.9 Chronic obstructive pulmonary disease, unspecified; Z95.0 Presence of cardiac pacemaker; E03.9 Hypothyroidism, unspecified; M19.90 Unspecified osteoarthritis, unspecified site
CPT/HCPCS: 36415; 71045; 71046; 71250; 80048; 80053; 81001; 82550; 82553; 82948; 83605; 83735; 83880; 84436; 84443; 84479; 84484; 85025; 85610; 85730; 87040; 87070; 87086; 87205; 93005; 93306; 94640; 99284; J0456; J0692; J1644; J2543; J3370; J7030

== ENCOUNTER 2019-03-12 02:17 | Inpatient (IN) | payer OTHER ==
[~2019-03-12] VITALS: Ht 152.4 cm; Wt 59.6 kg
[~2019-03-12 02:17] MED LIST changes: +GABAPENTIN300 MG PO; +MELATONIN3 MG PO
--- OUTSIDE RECORDS SUMMARY | 2019-03-12 02:22 | XMS REPORT | Continuity of Care Document ---
Author Author [facility] Interface Address Unknown Phone Unavailable Problems Problem Status Onset Date Classification Date Reported Comments Source SYNCOPE/ALANA Active 11/12/2018 [facility] SYNCOPE Active 11/12/2018 [facility] SYNCOPE,CKD(CHRONIC KIDNEY DISEASE) Active 09/30/2018 [facility] SYNCOPE, CKD Active 09/30/2018 [facility] FALL Active 09/30/2018 [facility] N&V 03/11/2018 03/14/2018 [facility] Radiculopathy 03/11/2018 03/14/2018 [facility] ARM PAIN Active 03/11/2018 [facility] Sprain of left acromioclavicular joint, initial encounter 11/13/2017 02/14/2018 [facility] Acromioclavicular sprain 11/08/2017 02/14/2018 [facility] 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 04/06/2017 [facility] 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; OTHER INTERVERTEBRAL DISC DISPLA Active 12/12/2015 [facility] Arthritis Resolved Problem 11/15/2018 [facility] Breast ca Resolved Problem 11/15/2018 [facility] Hyperlipidemia Resolved Problem 11/15/2018 [facility] Hypothyroidism Resolved Problem 11/15/2018 [facility] Primary osteoarthritis, left shoulder 02/14/2018 [facility] Essential hypertension 02/14/2018 [facility] Polyneuropathy, unspecified 02/14/2018 [facility] Presence of cardiac pacemaker 02/14/2018 [facility] Personal history of malignant neoplasm of breast 02/14/2018 [facility] Acquired absence of left breast and nipple 02/14/2018 [facility] 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/28/2018 Patrick Zaman [...] Leg pain Active Diagnosis 10/28/2018 Patrick Zaman HCAP Active Problem 03/08/2019 [facility] OTHER INTERVERTEBRAL DISC DISPLACEMENT, Active [facility] SYNCOPE AND COLLAPSE Active [facility] CHRONIC KIDNEY DISEASE, UNSPECIFIED Active [facility] Medications Medication Details Route Status Patient Instructions Ordering Provider Order Date Source remove patch Route: TOP, Bedtime, Drug form: ERFILM, Start date: 11/13/18 21:00:00 BATCH TESTER, Duration: 30 day, Stop date: 12/12/18 21:00:00 CDTNotes: Remove patch 12 hours after application each day. Inactive 11/14/2018 [facility] Lidocaine 0.05 MG/MG Transdermal Patch 2 patch, Route: TOP, Daily, Drug form: FILM, Start date: 11/13/18 14:30:00 BATCH TESTER, Duration: 30 day, Stop date: 12/13/18 9:00:00 CDTNotes: Apply only once for up to 12 hours in a 24-hour period (12 hours on and 12 hours off). (Same as: Lidoderm) "Remove old patch before application of new patch" Inactive 11/13/2018 [facility] Lidocaine 0.05 MG/MG Transdermal Patch 2 patch, TOP, Daily, # 28 patch, 0 Refill(s), Pharmacy: [facility] [id number] Active 11/13/2018 [facility] Pramipexole 0.25 mg, 2 tab, Route: PO, Drug form: TAB, Daily, Dosing Weight 61.818, kg, Start date: 11/13/18 9:00:00 BATCH TESTER, Duration: 30 day, Stop date: 12/12/18 9:00:00 CDTNotes: (Same as: Mirapex) Inactive 11/13/2018 [facility] Amlodipine 2.5 mg, 1 tab, Route: PO, Drug form: TAB, Daily, Dosing Weight 61.818, kg, Start date: 11/13/18 9:00:00 BATCH TESTER, Duration: 30 day, Stop date: 12/12/18 9:00:00 CDTNotes: (Same as: Norvasc) Inactive 11/13/2018 [facility] Aspirin 81 MG Enteric Coated Tablet 81 mg, 1 tab, Route: PO, Drug form: ECTAB, Daily, Dosing Weight 61.818, kg, Start date: 11/13/18 9:00:00 BATCH TESTER, Duration: 30 day, Stop date: 12/12/18 9:00:00 CDTNotes: Do not crush or chew. (Same As: Ecotrin) Inactive 11/13/2018 [facility] Protonix 40 mg, 1 tab, Route: PO, Drug form: ECTAB, Daily, Dosing Weight 61.818, kg, Start date: 11/13/18 9:00:00 BATCH TESTER, Duration: 30 day, Stop date: 12/12/18 9:00:00 CDTNotes: Tablet should not be chewed or crushed. (Same as: Protonix) Inactive 11/13/2018 [facility] Ergocalciferol 50,000 IntlUnit, 1 cap, Route: PO, Drug form: CAP, Daily, Dosing Weight 61.818, kg, Start date: 11/13/18 9:00:00 BATCH TESTER, Duration: 3 day, Stop date: 11/15/18 9:00:00 CSTNotes: (Same as: Vitamin D) "Do Not Crush" Inactive 11/13/2018 [facility] Lyrica 50 mg, 1 cap, Route: PO, Drug form: CAP, Daily, Dosing Weight 61.818, kg, Start date: 11/13/18 9:00:00 BATCH TESTER, Duration: 30 day, Stop date: 12/12/18 9:00:00 CDTNotes: Same as Lyrica Inactive 11/13/2018 [facility] Thyroxine 50 microgram, 1 tab, Route: PO, Drug form: TAB, Q630AM, Dosing Weight 61.818, kg, Start date: 11/13/18 6:30:00 BATCH TESTER, Duration: 30 day, Stop date: 12/12/18 6:30:00 CDTNotes: Take 1 hour before or 2 hours after meal; Enteral feeds may interefere with the absorption of this medication.(Same as:Levothroid, Synthroid) Inactive 11/13/2018 [facility] Acetaminophen 300 MG / Codeine Phosphate 30 MG Oral Tablet [Tylenol with Codeine #3] 1 tab, PO, Q6H, PRN Pain, 0 Refill(s) Active 11/12/2018 [facility] Nitroglycerin 0.4 MG Sublingual Tablet [Nitrostat] 0.4 mg, 1 tab, Route: SL, Drug form: TAB, Q5Min, Dosing Weight 61.818, kg, PRN Chest Pain, Start date: 11/12/18 13:49:00 BATCH TESTER, Duration: 3 doses or times, Stop date: Limited # of timesNotes: (Same as:Nitroquick, Nitrostat) "Do Not Crush" Sublingual tablet No Longer Active 11/12/2018 [facility] Terbutaline 0.25 mg, 0.25 mL, Route: SUB-Q, Drug form: INJ, Q6H, Dosing Weight 61.818, kg, PRN Bradycardia, Start date: 11/12/18 13:49:00 BATCH TESTER, Duration: 30 day, Stop date: 12/12/18 13:48:00 CDTNotes: DO NOT USE IN LINE HELPER AREA (Same As: Brethine) No Longer Active 11/12/2018 [facility] Lopressor 2.5 mg, 2.5 mL, Route: IVP, Drug form: INJ, Q3H, Dosing Weight 61.818, kg, PRN Tachycardia, Start date: 11/12/18 13:49:00 BATCH TESTER, Duration: 30 day, Stop date: 12/12/18 13:48:00 CDTNotes: (Same as: Lopressor) Push over 2 minutes No Longer Active 11/12/2018 [facility] Morphine 2 mg, 1 mL, Route: IVP, Drug form: SOLN, Q2H, Dosing Weight 61.818, kg, PRN Chest Pain, Start date: 11/12/18 13:49:00 BATCH TESTER, Duration: 30 day, Stop date: 12/12/18 13:48:00 CDT No Longer Active 11/12/2018 [facility] Hydralazine 10 mg, Route: IV, Q4H, Dosing Weight 61.818, kg, PRN Hypertension, Start date: 11/12/18 13:49:00 BATCH TESTER, Duration: 30 day, Stop date: 12/12/18 13:48:00 CDT Inactive 11/12/2018 [facility] NS 1,000 mL 1,000 mL, Rate: 75 ml/hr, Infuse over: 13.3 hr, Route: IV, Dosing Weight 61.818 kg, Total Volume: 1,000, Start date: 11/12/18 13:33:00 BATCH TESTER, Duration: 30 day, Stop date: 12/12/18 13:32:00 CDT, 1.64, m2 No Longer Active 11/12/2018 [facility] Maalox Advanced Regular Strength SUSP 30 mL, Route: PO, Drug Form: SUSP, Dosing Weight 61.818, kg, QID-After Meals, PRN as needed for indigestion, Routine, Start date: 11/12/18 13:31:00 BATCH TESTER, Duration: 30 day, Stop date: 12/12/18 13:30:00 CDTNotes: (aluminum hydroxide-magnesium hyd-simethicone [phone]/5ml 30 ml ud YESSENIA) No Longer Active 11/12/2018 [facility] Simethicone 80 mg, 1 tab, Route: CHEW, Drug form: CHEWTAB, QID-After Meals, Dosing Weight 61.818, kg, PRN as needed for gas, Start date: 11/12/18 13:31:00 BATCH TESTER, Duration: 30 day, Stop date: 12/12/18 13:30:00 CDTNotes: (Same as: Mylicon) No Longer Active 11/12/2018 [facility] Mucinex 600 mg, 1 tab, Route: PO, Drug form: ERTAB, Q12H, Dosing Weight 61.818, kg, PRN Congestion, Start date: 11/12/18 13:31:00 BATCH TESTER, Duration: 30 day, Stop date: 12/12/18 13:30:00 CDTNotes: (Same as: Guaifenesin LA, Humibid LA, Mucinex) "Do Not Crush" Take medication with plenty of water. No Longer Active 11/12/2018 [facility] Nicotine 21 mg, 1 patch, Route: TOP, Drug form: ERFILM, Daily, Dosing Weight 61.818, kg, PRN as needed for smoking cessation, Start date: 11/12/18 13:31:00 BATCH TESTER, Duration: 30 day, Stop date: 12/12/18 13:30:00 CDT Notes: (Same as: Habitrol) "Remove old patch before application of new patch" WASTE: F/P - P Waste Black; E - P Waste Black No Longer Active 11/12/2018 [facility] Seroquel 25 mg, 1 tab, Route: PO, Drug form: TAB, BID, Dosing Weight 61.818, kg, PRN Agitation, Start date: 11/12/18 13:31:00 BATCH TESTER, Duration: 30 day, Stop date: 12/12/18 13:30:00 CDTNotes: (Same as: SEROquel) No Longer Active 11/12/2018 [facility] Hydralazine 10 mg, 0.5 mL, Route: IVP, Drug form: INJ, Q4H, Dosing Weight 61.818, kg, PRN Hypertension, Priority: Routine, Start date: 11/12/18 13:31:00 BATCH TESTER, Duration: 30 day, Stop date: 12/12/18 13:30:00 CDTNotes: (Same as: Apresoline) Push over 5 minutes No Longer Active 11/12/2018 [facility] Tessalon Perles 100 mg, 1 cap, Route: PO, Drug form: CAP, TID, Dosing Weight 61.818, kg, PRN Cough, Start date: 11/12/18 13:31:00 BATCH TESTER, Duration: 30 day, Stop date: 12/12/18 13:30:00 CDTNotes: (Same As: Tessalon Ramiro es) "Do Not Crush" No Longer Active 11/12/2018 [facility] Morphine 2 mg, 1 mL, Route: IVP, Drug form: SOLN, Q4H, Dosing Weight 61.818, kg, PRN Pain Score 7-10, Start date: 11/12/18 13:31:00 BATCH TESTER, Duration: 30 day, Stop date: 12/12/18 13:30:00 CDT No Longer Active 11/12/2018 [facility] Robitussin-AC oral syrup 10 ml, Route: PO, Drug Form: LIQ, Dosing Weight 61.818, kg, Q4H, PRN Cough/Congestion, Start date: 11/12/18 13:31:00 BATCH TESTER, Duration: 30 day, Stop date: 12/12/18 13:30:00 CDTNotes: (Same As: Robitussin AC) No Longer Active 11/12/2018 [facility] Acetaminophen 325 MG / Hydrocodone Bitartrate 5 MG Oral Tablet [[place] 5/325] 1 tab, Route: PO, Drug Form: TAB, Dosing Weight 61.818, kg, Q6H, PRN Pain Score 1-3, Start date: 11/12/18 13:31:00 BATCH TESTER, Duration: 30 day, Stop date: 12/12/18 13:30:00 CDTNotes: (Same as: [place] 325/5) Do not exceed 4gm/day of acetaminophen. No Longer Active 11/12/2018 [facility] Acetaminophen 650 mg, 2 tab, Route: PO, Drug form: TAB, Q6H, Dosing Weight 61.818, kg, PRN For Temp > 100.4 F, Start date: 11/12/18 13:31:00 BATCH TESTER, Duration: 30 day, Stop date: 12/12/18 13:30:00 CDTNotes: Do not exceed 4 gm/day. (Same as: Tylenol) No Longer Active 11/12/2018 [facility] Diphenhydramine 25 mg, 0.5 mL, Route: PO, Drug form: INJ, Q6H, Dosing Weight 61.818, kg, PRN as needed for allergy symptoms, Start date: 11/12/18 13:31:00 BATCH TESTER, Duration: 30 day, Stop date: 12/12/18 13:30:00 CDTNotes: (Same as: Benadryl) No Longer Active 11/12/2018 [facility] Ondansetron 4 mg, 2 mL, Route: IVP, Drug form: INJ, Q6H, Dosing Weight 61.818, kg, PRN Nausea & Vomiting, Start date: 11/12/18 13:31:00 BATCH TESTER, Duration: 30 day, Stop date: 12/12/18 13:30:00 CDTNotes: (Same as: Zofran) MEDICATION WASTE Product Size: 4 mg Product Wasted: ___ mg No Longer Active 11/12/2018 [facility] Bisacodyl 10 mg, 1 supp, Route: NC, Drug form: SUPP, Daily, Dosing Weight 61.818, kg, PRN Constipation, Start date: 11/12/18 13:31:00 BATCH TESTER, Duration: 30 day, Stop date: 12/12/18 13:30:00 CDTNotes: (Same As: Dulcolax, Bisco-Lax) No Longer Active 11/12/2018 [facility] POLYETHYLENE GLYCOL 3350 17 gm, 1 pkt, Route: PO, Drug form: PWDR, Daily, Dosing Weight 61.818, kg, PRN Constipation, Start date: 11/12/18 13:31:00 BATCH TESTER, Duration: 30 day, Stop date: 12/12/18 13:30:00 CDTNotes: Dissolve in 8 oz of water or juice. (Same as: Miralax) No Longer Active 11/12/2018 [facility] Trazodone 50 mg, 1 tab, Route: PO, Drug form: TAB, Bedtime, Dosing Weight 61.818, kg, PRN Insomnia, Start date: 11/12/18 13:31:00 BATCH TESTER, Duration: 30 day, Stop date: 12/12/18 13:30:00 CDTNotes: (Same As: Desyrel) No Longer Active 11/12/2018 [facility] Melatonin 3 mg, 1 tab, Route: PO, Drug form: TAB, Bedtime, Dosing Weight 61.818, kg, PRN Insomnia, Start date: 11/12/18 13:31:00 BATCH TESTER, Duration: 30 day, Stop date: 12/12/18 13:30:00 CDTNotes: (Same as: Melatonin) No Longer Active 11/12/2018 [facility] Dextrose 50% Syringe 25 gm, 50 mL, Route: IVP, Drug Form: INJ, Dosing Weight 61.818, kg, PRN, PRN Blood Glucose Results, Start date: 11/12/18 13:31:00 BATCH TESTER, Duration: 30 day, Stop date: 12/12/18 14:30:00 CDT No Longer Active 11/12/2018 [facility] Docusate 100 mg, 1 cap, Route: PO, Drug form: CAP, BID, Dosing Weight 61.818, kg, PRN as needed for constipation, Start date: 11/12/18 13:31:00 BATCH TESTER, Duration: 30 day, Stop date: 12/12/18 13:30:00 CDTNotes: (Same as: Colace) (Do Not Crush) No Longer Active 11/12/2018 [facility] Glucagon 1 mg, Route: IM, Drug form: PDR/INJ, PRN, Dosing Weight 61.818, kg, PRN Blood Glucose Results, Start date: 11/12/18 13:31:00 BATCH TESTER, Duration: 30 day, Stop date: 12/12/18 14:30:00 CDT No Longer Active 11/12/2018 [facility] Saline Flush 0.9% 10 mL, Route: IVP, Drug Form: INJ, Dosing Weight 68.182, kg, PRN, PRN Line Flush, Start date: 11/12/18 9:29:00 BATCH TESTER, Duration: 30 day, Stop date: 12/12/18 10:28:00 CDTNotes: (Same as: BD Posiflush) Inactive 11/12/2018 [facility] Sodium Chloride 0.9% (Bolus) IV 500 mL, 500 ml/hr, Infuse Over: 1 hr, Route: IV, 500, Drug form: INJ, ONCE, Priority: STAT, Dosing Weight 68.182 kg, Start date: 11/12/18 9:29:00 BATCH TESTER, Stop date: 11/12/18 9:29:00 BATCH TESTER Inactive 11/12/2018 [facility] PredniSONE 1-2 tabs prn only Orally Active 5 MG Orally Once a day Deedee 07/19/2018 Patrick Zaman PredniSONE 10mg x 1wk, 5mg x 1wk, 2.5mg x 1wk Orally Active 5 MG Orally Once a day Deedee 06/07/2018 Patrick Zaman Ondansetron 4 MG Disintegrating Tablet [Zofran] 4 mg=1 tab, PO, BID, PRN Nausea and Vomiting, Dissolve tab under tongue, # 10 tab, 0 Refill(s) Active 03/12/2018 [facility] Dexamethasone 4 mg, Route: IVP, ONCE, Dosing Weight 61.364, kg, Priority: STAT, Start date: 03/11/18 20:21:00 CDT, Stop date: 03/11/18 20:21:00 CDT Inactive 03/12/2018 [facility] Zofran 4 mg, 2 mL, Route: IVP, Drug form: INJ, ONCE, Dosing Weight 61.364, kg, Priority: STAT, Start date: 03/11/18 18:46:00 CDT, Stop date: 03/11/18 18:46:00 CDTNotes: (Same as: Zofran) MEDICATION WASTE Product Size: 4 mg Product Wasted: ___ mg Inactive 03/11/2018 [facility] Fentanyl 50 microgram, 1 mL, Route: IVP, Drug form: INJ, ONCE, Dosing Weight 61.364, kg, Priority: STAT, Start date: 03/11/18 18:46:00 CDT, Stop date: 03/11/18 18:46:00 CDTNotes: (Same as: Sublimaze) Preservative free. Inactive 03/11/2018 [facility] methylPREDNISolone SODium SUCCinate 125 mg, 2 mL, Route: IVP, Drug form: INJ, ONCE, Dosing Weight 62.273, kg, Priority: STAT, Start date: 11/08/17 12:18:00 BATCH TESTER, Stop date: 11/08/17 12:18:00 CSTNotes: (Same as:Solu-MEDROL, A-Methapred) Inactive 11/08/2017 [facility] Fentanyl 50 microgram, 1 mL, Route: IVP, Drug form: INJ, ONCE, Dosing Weight 62.273, kg, Priority: STAT, Start date: 11/08/17 11:01:00 BATCH TESTER, Stop date: 11/08/17 11:01:00 CSTNotes: (Same as: Sublimaze) Preservative free. Inactive 11/08/2017 [facility] Saline Flush 0.9% 10 mL, Route: IVP, Drug Form: INJ, Dosing Weight 62.273, kg, PRN, PRN Line Flush, Start date: 11/08/17 9:28:00 BATCH TESTER, Duration: 30 day, Stop date: 12/08/17 10:27:00 CDTNotes: (Same as: BD Posiflush) Inactive 11/08/2017 [facility] Vitamin B12 as directed Orally Active 100 MCG Orally once a day Deedee Patrick Zaman Levothyroxine Sodium 1 tablet Orally Active .05 [...] Active 5000 MCG Orally Once a day [facility] Patrick Zaman Vitamin D3 1 tablet Orally Active 5000 UNIT Orally Once a day [facility] Patrick Zaman Pramipexole Dihydrochloride 1 tablet before bedtime Orally Active 0.25 MG Orally Once a day Deedee Patrick Zaman Centrum Silver 50+Women as directed Orally Active - Orally [facility] Patrick Zaman Amlodipine Besylate 1 tablet Orally Active 2.5 MG Orally Once a day [facility] Patrick Zaman Trazodone HCl 1 tablet at bedtime as needed Orally Active 50 MG Orally Once a day [facility] Patrick Zaman Ondansetron 1 tablet on the tongue and allow to dissolve as needed Orally Active 4 MG Orally every 4 hrs Deedee Patrick Zaman Hetal Root as directed Orally Active 550 MG Orally Deedee Patrick Zaman Ginkgo Biloba as directed Orally Active 60 MG Orally Deedee Patrick Zaman PredniSONE TAKE 1- 2 TABLET BY MOUTH EVERY DAY NEEDED NA Active 5 [facility] Patrick Zaman Acetaminophen With Codeine (Tylenol With Codeine #3 Tablet) 1 Each Tablet As Needed Active [facility] Amlodipine Besylate 2.5 Mg Tablet Daily Active [facility] Aspirin 81 Mg Tab.chew Daily Active [facility] Biotin 2,500 Mcg Capsule Daily Active [facility] Gabapentin 300 Mg Capsule Twice A Day Active [facility] Levothyroxine Sodium 50 Mcg Tablet Daily Active [facility] Melatonin 3 Mg Tablet Bedtime Active [facility] Mu-Vits-Min Th/Lycopene/Lutein (Centrum Silver Tablet) 1 Each Tablet Daily Active [facility] Pramipexole Di-Hcl (Pramipexole Dihydrochloride) 0.25 Mg Tablet As Needed Active [facility] Pregabalin (Lyrica) 50 Mg Cap Daily Active [facility] Vitamin B12 Daily Active [facility] Allergies, Adverse Reactions, Alerts Substance Category Reaction Severity Reaction type Status Date Reported Comments Source N.K.D.A. Adverse Reaction Info Not Available Adverse Reaction Active 10/20/2018 Patrick Zaman Immunizations Immunization Date Given Site Status Last Updated Comments Source pneumococcal 23-valent vaccine 10/09/2015 [facility] deltoid completed [facility] Results Order Name Results Value Reference Range Date Interpretation Comments Source Blood leukocytes automated count (number/volume) 12.41 4.8 - 10.8 03/07/2019 [facility] Blood erythrocytes automated count (number/volume) 3.43 3.6 - 5.1 03/07/2019 [facility] Blood hemoglobin measurement (moles/volume) 10.4 12.0 - 16.0 03/07/2019 [facility] Automated blood hematocrit (volume fraction) 31.5 34.2 - 44.1 03/07/2019 [facility] Automated erythrocyte mean corpuscular volume 91.8 81 - 99 03/07/2019 [facility] Automated erythrocyte mean corpuscular hemoglobin (mass per erythrocyte) 30.3 28 - 32 03/07/2019 [facility] Automated erythrocyte mean corpuscular hemoglobin concentration measurement (mass/volume) 33.0 31 - 35 03/07/2019 [facility] RDW BldCo-Rto 14.6 11.7 - 14.4 03/07/2019 [facility] Automated blood platelet count (count/volume) 490 140 - 360 03/07/2019 [facility] Automated blood segmented neutrophil count as percentage of total leukocytes 81.3 38.7 - 80.0 03/07/2019 [facility] Automated blood lymphocyte count as percentage ot total leukocytes 8.5 18.0 - 39.1 03/07/2019 [facility] Automated blood monocyte count as percentage of total leukocytes 7.1 4.4 - 11.3 03/07/2019 [facility] Automated blood eosinophil count as percentage of total leukocytes 2.3 0.0 - 6.0 03/07/2019 [facility] Automated blood basophil count as percentage of total leukocytes 0.2 0.0 - 1.0 03/07/2019 [facility] IM GRANULOCYTES % 0.6 0.0 - 1.0 03/07/2019 [facility] Automated blood neutrophil count 10.1 2.1 - 6.9 03/07/2019 [facility] Blood lymphocytes count (number/volume) 1.1 1.0 - 3.2 03/07/2019 [facility] Blood monocytes automated count (number/volume) 0.9 0.2 - 0.8 03/07/2019 [facility] Automated blood eosinophil count 0.3 0.0 - 0.4 03/07/2019 [facility] Automated blood basophil count (count/volume) 0.0 0.0 - 0.1 03/07/2019 [facility] Absolute Immature Granulocyte (auto 0.08 0 - 0.1 03/07/2019 [facility] Serum or plasma sodium measurement (moles/volume) 137 136 - 145 03/07/2019 [facility] Serum or plasma potassium measurement (moles/volume) 3.3 3.5 - 5.1 03/07/2019 [facility] Serum or plasma chloride measurement (moles/volume) 107 98 - 107 03/07/2019 [facility] Serum or plasma carbon dioxide, total measurement (moles/volume) 21 22 - 29 03/07/2019 [facility] Serum or plasma anion gap 12.3 8 - 16 03/07/2019 [facility] Serum or plasma urea nitrogen measurement (mass/volume) 17 7 - 26 03/07/2019 [facility] Serum or plasma creatinine measurement (mass/volume) 0.95 0.57 - 1.11 03/07/2019 [facility] Serum or plasma urea nitrogen/creatinine mass ratio 18 6 - 25 03/07/2019 [facility] Estimated glomerular filtration rate (GFR) determination 56 60 03/07/2019 [facility] Glucose measurement 94 74 - 118 03/07/2019 [facility] Serum or plasma calcium measurement (mass/volume) 9.2 8.4 - 10.2 03/07/2019 [facility] Capillary blood glucose measurement by glucometer (mass/volume) 96 70 - 120 03/06/2019 [facility] Bacteria identification in sputum by respiratory culture Organism: DAYSI ALBICANS-PRESUMPTIVE 03/04/2019 [facility] Serum or plasma total bilirubin measurement (mass/volume) 0.6 0.2 - 1.2 03/03/2019 [facility] Aspartate Amino Transf (AST/SGOT) 38 5 - 34 03/03/2019 [facility] Serum or plasma alanine aminotransferase measurement (enzymatic activity/volume) 27 0 - 55 03/03/2019 [facility] Serum or plasma protein measurement (mass/volume) 6.7 6.5 - 8.1 03/03/2019 [facility] Serum or plasma albumin measurement (mass/volume) 2.6 3.5 - 5.0 03/03/2019 [facility] Plasma globulin measurement (mass/volume) 4.1 2.3 - 3.5 03/03/2019 [facility] Serum or plasma albumin/globulin mass ratio 0.6 0.8 - 2.0 03/03/2019 [facility] Serum or plasma alkaline phosphatase measurement (enzymatic activity/volume) 121 40 - 150 03/03/2019 [facility] Serum or plasma creatine kinase measurement (enzymatic activity/volume) 54 29 - 168 03/03/2019 [facility] Serum or plasma creatine kinase MB measurement (mass/volume) 1.50 0 - 5.0 03/03/2019 [facility] Troponin I measurement by highly sensitive enzyme immunoassay 0.062 0 - 0.300 03/03/2019 [facility] Free thyroxine index 2.1367 1.4 - 3.8 03/03/2019 [facility] Serum or plasma thyroxine (T4) measurement (mass/volume) 5.53 4.5 - 10.9 03/03/2019 [facility] Serum or plasma triiodothyronine resin uptake (T3RU) 38.64 22.5 - 37.0 03/03/2019 [facility] Serum or plasma thyrotropin measurement by detection limit <=0.005 miu/l (units/volume) 2.646 0.350 - 4.940 03/03/2019 [facility] Prothrombin time (PT) in platelet poor plasma by coagulation assay 15.6 11.9 - 14.5 03/02/2019 [facility] INR in Platelet poor plasma by Coagulation assay 1.18 03/02/2019 [facility] Activated partial thromboplastin time (aPTT) in platelet poor plasma bycoagulation assay 38.5 23.8 - 35.5 03/02/2019 [facility] Urine color determination YELLOW YELLOW 03/02/2019 [facility] Urine clarity CLEAR CLEAR 03/02/2019 [facility] Specific gravity of Urine by Test strip 1.015 1.010 - 1.025 03/02/2019 [facility] Urine pH measurement by automated test strip 6 5 - 7 03/02/2019 [facility] Urine leukocyte esterase detection by automated test strip NEGATIVE NEGATIVE 03/02/2019 [facility] Urine nitrite detection by automated test strip NEGATIVE NEGATIVE 03/02/2019 [facility] Urine protein detection by automated test strip 2+ NEGATIVE 03/02/2019 [facility] Urine glucose detection by automated test strip NEGATIVE NEGATIVE 03/02/2019 [facility] Urine ketones detection by automated test strip NEGATIVE NEGATIVE 03/02/2019 [facility] Urine urobilinogen measurement by test strip (mass/volume) 1 0.2 - 1 03/02/2019 [facility] Urine total bilirubin detection NEGATIVE NEGATIVE 03/02/2019 [facility] Urine erythrocytes detection NEGATIVE NEGATIVE 03/02/2019 [facility] Automated urine sediment leukocyte count by microscopy (number/high power field) NONE 0 - 5 03/02/2019 [facility] Erythrocytes detection in urine sediment by light microscopy NONE 0 - 5 03/02/2019 [facility] Bacteria detection in urine sediment by light microscopy MANY NONE 03/02/2019 [facility] Epithelial cells detection in urine sediment by light microscopy MODERATE NONE 03/02/2019 [facility] Lactic Acid Level 9.2 4.5 - 19.8 03/02/2019 [facility] Serum or plasma magnesium measurement (mass/volume) 1.9 1.3 - 2.1 03/02/2019 [facility] BNP Bld-mCnc 813.5 0 - 100 03/02/2019 [facility] Blood culture NO GROWTH AFTER 5 DAYS, FINAL REPORT 03/02/2019 [facility] Bacteria identification in wound by culture Organism: STAPHYLOCOCCUS AUREUS 12/15/2018 [facility] CHEM PANEL Bili Indirect 0.4 mg/dL 0.0 - 1.0 11/13/2018 [facility] CHEM PANEL A/G Ratio 0.9 0.7 - 1.6 11/13/2018 [facility] CHEM PANEL Globulin 3.4 g/dL 2.7 - 4.2 11/13/2018 [facility] CHEM PANEL Alk Phos 74 unit/L 39 - 136 11/13/2018 [facility] CHEM PANEL AST 36 unit/L 0 - 37 11/13/2018 [facility] CHEM PANEL ALT 25 unit/L 0 - 65 11/13/2018 [facility] CHEM PANEL Albumin Lvl 3.1 g/dL 3.5 - 5.0 11/13/2018 [facility] CHEM PANEL Total Protein 6.5 g/dL 6.4 - 8.4 11/13/2018 [facility] CHEM PANEL Bili Direct 0.1 mg/dL 0.0 - 0.3 11/13/2018 [facility] CHEM PANEL Bili Total 0.5 mg/dL 0.2 - 1.3 11/13/2018 [facility] CHEM PANEL Calcium Lvl 8.8 mg/dL 8.5 - 10.5 11/13/2018 [facility] CHEM PANEL AGAP 9.2 meq/L 10.0 - 20.0 11/13/2018 [facility] CHEM PANEL eGFR 29 mL/min/1.73m2 11/13/2018 [...] should be multiplied by the estimated BMI. [facility] CHEM PANEL Creatinine Lvl 1.60 mg/dL 0.50 - 1.40 11/13/2018 [facility] CHEM PANEL CO2 26 meq/L 24 - 32 11/13/2018 [facility] CHEM PANEL Chloride Lvl 110 meq/L 95 - 109 11/13/2018 [facility] CHEM PANEL Sodium Lvl 141 meq/L 135 - 145 11/13/2018 [facility] CHEM PANEL Potassium Lvl 4.2 meq/L 3.5 - 5.1 11/13/2018 [facility] CHEM PANEL BUN 40 mg/dL 7 - 22 11/13/2018 [facility] CHEM PANEL Glucose Lvl 103 mg/dL 70 - 99 11/13/2018 [facility] RBC 3.43 M/CMM 4.20 - 5.40 11/13/2018 [facility] WBC 6.9 K/CMM 3.7 - 10.4 11/13/2018 [facility] Hct 33.3 % 36.0 - 48.0 11/13/2018 [facility] MCHC 33.5 g/dL 32.0 - 36.0 11/13/2018 [facility] MCH 32.5 pg 27.0 - 31.0 11/13/2018 [facility] MCV 97.0 fL 80.0 - 98.0 11/13/2018 [facility] Hgb 11.1 g/dL 12.0 - 16.0 11/13/2018 [facility] Platelet 203 K/CMM 133 - 450 11/13/2018 [facility] MPV 9.1 fL 7.4 - 10.4 11/13/2018 [facility] RDW 14.8 % 11.5 - 14.5 11/13/2018 [facility] LIPIDS CHD Risk 2.91 3.90 - 5.80 11/13/2018 [facility] LIPIDS VLDL 33 11/13/2018 [facility] LIPIDS HDL 66 mg/dL >=61 mg/dL 11/13/2018 [facility] LIPIDS LDL (Calculated) 93 mg/dL <=99 mg/dL 11/13/2018 [facility] LIPIDS Trig 167 mg/dL <=149 mg/dL 11/13/2018 [facility] LIPIDS Chol 192 mg/dL <=199 mg/dL 11/13/2018 [facility] SPECIAL CHEMISTRY Hgb A1C 6.0 % <=5.6 % 11/13/2018 [facility] CARDIAC ENZYMES BNP 247 pg/mL <=100 pg/mL 11/12/2018 [facility] CHEM PANEL Uric Acid 7.3 mg/dL 2.5 - 7.0 11/12/2018 [facility] CHEM PANEL Vitamin D, 25-OH, Total 45.0 ng/mL 30.0 - 100.0 11/12/2018 [facility] CHEM PANEL Phosphorus 3.3 mg/dL 2.5 - 4.5 11/12/2018 [facility] CHEM PANEL Magnesium Lvl 2.5 mg/dL 1.8 - 2.4 11/12/2018 [facility] HEMATOLOGY Sed Rate 30 mm/h 0 - 20 11/12/2018 [facility] IMMUNOLOGY Homocyst Tot 16.4 umol/L 3.7 - 13.9 11/12/2018 [facility] IMMUNOLOGY CRP, High Sensitivity 5.6 mg/L 11/12/2018 [facility] CHD Risk 2.67 3.90 - 5.80 11/12/2018 [facility] LIPIDS VLDL 19 11/12/2018 [facility] LIPIDS LDL (Calculated) 98 mg/dL <=99 mg/dL 11/12/2018 [facility] LIPIDS Trig 97 mg/dL <=149 mg/dL 11/12/2018 [facility] LIPIDS Chol 187 mg/dL <=199 mg/dL 11/12/2018 [facility] LIPIDS HDL 70 mg/dL >=61 mg/dL 11/12/2018 [facility] SPECIAL CHEMISTRY Hgb A1C 5.9 % <=5.6 % 11/12/2018 [facility] Carotid artery Doppler bilat US Carotid [...] Reese An MD 11/12/18 18:44 FINAL REPORT [facility] CARDIAC ENZYMES BNP 245 pg/mL <=100 pg/mL 11/12/2018 [facility] CARDIAC ENZYMES Troponin-I 0.04 ng/mL 0.00 - 0.40 11/12/2018 [facility] ELECTROLYTES AGAP 7.6 meq/L 10.0 - 20.0 11/12/2018 [facility] ELECTROLYTES Globulin 3.8 g/dL 2.7 - 4.2 11/12/2018 [facility] ELECTROLYTES A/G Ratio 1.0 0.7 - 1.6 11/12/2018 [facility] ELECTROLYTES B/C Ratio 26 6 - 25 11/12/2018 [facility] ELECTROLYTES eGFR 21 mL/min/1.73m2 11/12/2018 Result [...] should be multiplied by the estimated BMI. [facility] ELECTROLYTES Bili Total 0.7 mg/dL 0.2 - 1.3 11/12/2018 [facility] ELECTROLYTES Alk Phos 109 unit/L 39 - 136 11/12/2018 [facility] ELECTROLYTES Chloride Lvl 105 meq/L 95 - 109 11/12/2018 [facility] ELECTROLYTES CO2 29 meq/L 24 - 32 11/12/2018 [facility] ELECTROLYTES BUN 54 mg/dL 7 - 22 11/12/2018 [facility] ELECTROLYTES Glucose Lvl 111 mg/dL 70 - 99 11/12/2018 [facility] ELECTROLYTES Total Protein 7.7 g/dL 6.4 - 8.4 11/12/2018 [facility] ELECTROLYTES Albumin Lvl 3.9 g/dL 3.5 - 5.0 11/12/2018 [facility] ELECTROLYTES Creatinine Lvl 2.08 mg/dL 0.50 - 1.40 11/12/2018 [facility] ELECTROLYTES ALT 28 unit/L 0 - 65 11/12/2018 [facility] ELECTROLYTES Sodium Lvl 137 meq/L 135 - 145 11/12/2018 [facility] ELECTROLYTES Potassium Lvl 4.6 meq/L 3.5 - 5.1 11/12/2018 [facility] ELECTROLYTES AST 34 unit/L 0 - 37 11/12/2018 [facility] ELECTROLYTES Calcium Lvl 9.0 mg/dL 8.5 - 10.5 11/12/2018 [facility] HEMATOLOGY Monocytes # 0.7 K/CMM 0.0 - 0.8 11/12/2018 [facility] HEMATOLOGY Eosinophils # 0.2 K/CMM 0.0 - 0.5 11/12/2018 [facility] HEMATOLOGY Neutrophils # 5.3 K/CMM 1.5 - 8.1 11/12/2018 [facility] HEMATOLOGY Basophils 0.5 % 0.0 - 1.0 11/12/2018 [facility] Lymphocytes # 1.9 K/CMM 1.0 - 5.5 11/12/2018 [facility] Eosinophils 2.9 % 0.0 - 4.0 11/12/2018 [facility] Monocytes 8.6 % 2.0 - 12.0 11/12/2018 [facility] Lymphocytes 23.6 % 20.0 - 40.0 11/12/2018 [facility] Segs 64.4 % 45.0 - 75.0 11/12/2018 [facility] PTT 28.8 s 22.9 - 35.8 11/12/2018 [facility] PT 12.7 s 12.0 - 14.7 11/12/2018 [facility] INR 0.97 0.85 - 1.17 11/12/2018 [facility] MCHC 33.2 g/dL 32.0 - 36.0 11/12/2018 [facility] MCH 32.3 pg 27.0 - 31.0 11/12/2018 [facility] RDW 15.0 % 11.5 - 14.5 11/12/2018 [facility] MPV 9.0 fL 7.4 - 10.4 11/12/2018 [facility] Platelet 233 K/CMM 133 - 450 11/12/2018 [facility] RBC 3.91 M/CMM 4.20 - 5.40 11/12/2018 [facility] WBC 8.3 K/CMM 3.7 - 10.4 11/12/2018 [facility] MCV 97.4 fL 80.0 - 98.0 11/12/2018 [facility] Hgb 12.6 g/dL 12.0 - 16.0 11/12/2018 [facility] Hct 38.1 % 36.0 - 48.0 11/12/2018 [facility] Chest 1view DX Chest 1view DX EXAM: XR CHEST 1 VIEW DATE: 11/12/2018 9:29 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 FINDINGS/IMPRESSION: Lines, tubes and hardware: Cervical hardware again seen. Stable right chest cardiac device. The heart size is normal for technique. Vascular calcifications are present at the aorta. Pulmonary vascularity is normal. Interval improvement in left lower lung and right lateral midlung airspace opacities. No pleural effusion. 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 Syncopal episode x [...] without mass, hemorrhage or subacute stroke. SL: [id number] 11/12/2018 - - Read by: Allen Rojas [...] size -Use of iterative reconstruction technique Dose: RFR=678.20 mGy-cm FINDINGS: LUNG PARENCHYMA AND PLEURA: Bandlike [...] changes. Large bilateral glenohumeral joint effusions SL: [id number] 09/30/2018 - - Read by: Marcia Jose MD Dictated Date/time: 10/01/18 00:01 Electronically Signed by: Marcia Jose MD 10/01/18 00:12 FINAL REPORT [facility] Chest 1view DX Chest 1view DX Patient Name: ROSE CRUZ : 1930; Age: 88 years y/o Female MR: [id number] Study: Chest 1view DX dated 09/30/2018. 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 SL: [id number] 09/30/2018 - - Read by: Bebeto Melendez MD Dictated Date/time: 09/30/18 13:18 Electronically Signed by: Bebeto Melendez MD 09/30/18 13:23 FINAL REPORT [facility] Brain wo contrast CT Brain wo [...] Ammy Samuel MD 09/30/18 13:29 FINAL REPORT [facility] Spine cervical wo contrast CT (ER) [...] cervical spondylosis. Status post ACDF C5-C6. SL: [id number] 09/30/2018 - - Read by: Patrick Dyson MD Dictated Date/time: 09/30/18 13:25 Electronically Signed by: Patrick Dyson MD 09/30/18 13:30 FINAL REPORT [facility] CARDIAC ENZYMES Troponin-I 0.04 ng/mL 0.00 - 0.40 03/12/2018 [facility] CHEM PANEL Lipase Lvl 98 unit/L 73 - 393 03/12/2018 [facility] CHEM PANEL B/C Ratio 24 6 - 25 03/12/2018 [facility] CHEM PANEL A/G Ratio 0.9 0.7 - 1.6 03/12/2018 [facility] CHEM PANEL Globulin 4.7 g/dL 2.7 - 4.2 03/12/2018 [facility] CHEM PANEL AGAP 14.4 meq/L 10.0 - 20.0 03/12/2018 [facility] CHEM PANEL eGFR 37 mL/min/1.73m2 03/12/2018 [...] should be multiplied by the estimated BMI. [facility] CHEM PANEL CO2 28 meq/L 24 - 32 03/12/2018 [facility] CHEM PANEL Bili Total 0.4 mg/dL 0.2 - 1.3 03/12/2018 [facility] CHEM PANEL Alk Phos 107 unit/L 39 - 136 03/12/2018 [facility] CHEM PANEL AST 21 unit/L 0 - 37 03/12/2018 [facility] CHEM PANEL Chloride Lvl 101 meq/L 95 - 109 03/12/2018 [facility] CHEM PANEL Potassium Lvl 4.4 meq/L 3.5 - 5.1 03/12/2018 [facility] CHEM PANEL Creatinine Lvl 1.31 mg/dL 0.50 - 1.40 03/12/2018 [facility] CHEM PANEL BUN 32 mg/dL 7 - 22 03/12/2018 [facility] CHEM PANEL Glucose Lvl 126 mg/dL 70 - 99 03/12/2018 [facility] CHEM PANEL ALT 25 unit/L 0 - 65 03/12/2018 [facility] CHEM PANEL Albumin Lvl 4.2 g/dL 3.5 - 5.0 03/12/2018 [facility] CHEM PANEL Total Protein 8.9 g/dL 6.4 - 8.4 03/12/2018 [facility] CHEM PANEL Calcium Lvl 9.8 mg/dL 8.5 - 10.5 03/12/2018 [facility] CHEM PANEL Sodium Lvl 139 meq/L 135 - 145 03/12/2018 [facility] HEMATOLOGY Eosinophils 0.1 % 0.0 - 4.0 03/12/2018 [facility] HEMATOLOGY Monocytes 5.8 % 2.0 - 12.0 03/12/2018 [facility] HEMATOLOGY Segs-Bands # 7.4 K/CMM 1.5 - 8.1 03/12/2018 [facility] Lymphocytes 15.0 % 20.0 - 40.0 03/12/2018 [facility] Basophils 0.4 % 0.0 - 1.0 03/12/2018 [facility] Lymphocytes # 1.4 K/CMM 1.0 - 5.5 03/12/2018 [facility] Macrocyte 1+ *ABN* (03/11/18 7:36 PM) None Seen 03/12/2018 [facility] Monocytes # 0.5 K/CMM 0.0 - 0.8 03/12/2018 [facility] Segs 78.7 % 45.0 - 75.0 03/12/2018 [facility] MCHC 33.5 g/dL 32.0 - 36.0 03/12/2018 [facility] MCH 33.4 pg 27.0 - 31.0 03/12/2018 [facility] RDW 14.1 % 11.5 - 14.5 03/12/2018 [facility] MPV 8.7 fL 7.4 - 10.4 03/12/2018 [facility] Platelet 258 K/CMM 133 - 450 03/12/2018 [facility] Hct 42.5 % 36.0 - 48.0 03/12/2018 [facility] Hgb 14.2 g/dL 12.0 - 16.0 03/12/2018 [facility] MCV 99.5 fL 80.0 - 98.0 03/12/2018 [facility] RBC 4.27 M/CMM 4.20 - 5.40 03/12/2018 [facility] WBC 9.3 K/CMM 3.7 - 10.4 03/12/2018 [facility] CARDIAC ENZYMES CK MB Index 2.6 0.0 - 2.5 11/08/2017 [facility] CARDIAC ENZYMES BNP 137 pg/mL <=100 pg/mL 11/08/2017 [facility] CARDIAC ENZYMES Troponin-I 0.05 ng/mL 0.00 - 0.40 11/08/2017 [facility] CARDIAC ENZYMES Total CK 108 unit/L 12 - 191 11/08/2017 [facility] CARDIAC ENZYMES CK MB 2.8 ng/mL 0.5 - 3.6 11/08/2017 [facility] CHEM PANEL Bili Total 0.3 mg/dL 0.2 - 1.3 11/08/2017 [facility] CHEM PANEL B/C Ratio 25 6 - 25 11/08/2017 [facility] CHEM PANEL AGAP 13.6 meq/L 10.0 - 20.0 11/08/2017 [facility] CHEM PANEL Globulin 3.9 g/dL 2.7 - 4.2 11/08/2017 [facility] CHEM PANEL A/G Ratio 0.9 0.7 - 1.6 11/08/2017 [facility] CHEM PANEL eGFR 36 mL/min/1.73m2 11/08/2017 [...] by the estimated BMI. [facility] CHEM PANEL Albumin Lvl 3.5 g/dL 3.5 - 5.0 11/08/2017 [facility] CHEM PANEL Total Protein 7.4 g/dL 6.4 - 8.4 11/08/2017 [facility] CHEM PANEL AST 22 unit/L 0 - 37 11/08/2017 [facility] CHEM PANEL Alk Phos 86 unit/L 39 - 136 11/08/2017 [facility] CHEM PANEL ALT 21 unit/L 0 - 65 11/08/2017 [facility] CHEM PANEL Sodium Lvl 137 meq/L 135 - 145 11/08/2017 [facility] CHEM PANEL Potassium Lvl 4.6 meq/L 3.5 - 5.1 11/08/2017 [facility] CHEM PANEL Chloride Lvl 103 meq/L 95 - 109 11/08/2017 [facility] CHEM PANEL CO2 25 meq/L 24 - 32 11/08/2017 [facility] CHEM PANEL Calcium Lvl 8.6 mg/dL 8.5 - 10.5 11/08/2017 [facility] CHEM PANEL Glucose Lvl 93 mg/dL 70 - 99 11/08/2017 [facility] CHEM PANEL BUN 33 mg/dL 7 - 22 11/08/2017 [facility] CHEM PANEL Creatinine Lvl 1.33 mg/dL 0.50 - 1.40 11/08/2017 [facility] Lymphocytes # 1.2 K/CMM 1.0 - 5.5 11/08/2017 [facility] Monocytes # 0.5 K/CMM 0.0 - 0.8 11/08/2017 [facility] Segs-Bands # 3.4 K/CMM 1.5 - 8.1 11/08/2017 [facility] Eosinophils 2.3 % 0.0 - 4.0 11/08/2017 [facility] Basophils 0.6 % 0.0 - 1.0 11/08/2017 [facility] Monocytes 10.1 % 2.0 - 12.0 11/08/2017 [facility] Eosinophils # 0.1 K/CMM 0.0 - 0.5 11/08/2017 [facility] Lymphocytes 22.1 % 20.0 - 40.0 11/08/2017 [facility] Segs 64.9 % 45.0 - 75.0 11/08/2017 [facility] Hct 36.0 % 36.0 - 48.0 11/08/2017 [facility] Hgb 12.1 g/dL 12.0 - 16.0 11/08/2017 [facility] RBC 3.65 M/CMM 4.20 - 5.40 11/08/2017 [facility] WBC 5.2 K/CMM 3.7 - 10.4 11/08/2017 [facility] MPV 9.5 fL 7.4 - 10.4 11/08/2017 [facility] RDW 13.2 % 11.5 - 14.5 11/08/2017 [facility] Platelet 204 K/CMM 133 - 450 11/08/2017 [facility] MCHC 33.6 g/dL 32.0 - 36.0 11/08/2017 [facility] MCV 98.5 fL 80.0 - 98.0 11/08/2017 [facility] MCH 33.1 pg 27.0 - 31.0 11/08/2017 [facility] Chest/Abd/Pelvis CTA Chest/Abd/Pelvis CTA Study: Chest/Abd/Pelvis CTA Clinical Indication: - chest pain, back pain, hypertension,? dissection; Comparison: Chest this Technique: Axial images with sagittal and coronal MIP reconstructions were obtained following bolus nonionic intravenous contrast, Visipaque 75 mL. No 3-D images were obtained. CT Radiation Dose: GDF=5620.05 mGy-cm. FINDINGS: CT ANGIOGRAM: No aortic dissection [...] Jesús Guerra MD 11/08/17 12:11 FINAL REPORT [facility] Chest 1view DX Chest 1view DX PROCEDURE: Chest, [...] process. 2. Degenerative and postsurgical changes. SL: [id number] 11/08/2017 - - Read by: Irving Patton MD Dictated Date/time: 11/08/17 10:17 Electronically Signed by: Irving Patton MD 11/08/17 10:22 FINAL REPORT [facility] Shoulder series DX Shoulder series DX [...] Xiang Mooney MD 11/08/17 10:20 FINAL REPORT [facility] Retroperitoneal Complete US Retroperitoneal Complete US Patient Name: ROSE CRUZ : 1930; Age: 86 years y/o Female MR: [id number] Study: Retroperitoneal Complete US Clinical Indication: - [...] report. IMPRESSION: No significant acute findings. SL: [id number] 04/09/2017 - - Read by: Deshawn Herrera MD Dictated Date/time: 04/09/17 13:17 Electronically Signed by: Deshawn Herrera MD 04/09/17 13:18 FINAL REPORT [facility] Bladder US Bladder US Patient Name: ROSE CRUZ : 1930; Age: 86 years y/o Female MR: [id number] Study: Bladder US 04/09/2017 11:24 AM CDT Ordering Physician: Chance Putnam MD Clinical Indication: - chronic kidney disease; Comparison: None Urinary bladder prior to voiding is only partially filled. No intrinsic lesion is demonstrated. Its volume measures 55 mL. Postvoid, near complete bladder emptying, with only 5 mL remaining. SL: [id number] 04/09/2017 - - Read by: Deshawn Herrera MD Dictated Date/time: 04/09/17 13:14 Electronically Signed by: Deshawn Herrera MD 04/09/17 13:17 FINAL REPORT [facility] Spine lumbar wo contrast CT Spine lumbar [...] Moderate bilateral L5 neural foraminal stenoses. SL: [id number] 12/21/2015 - - Read by: Sage Granado MD Dictated Date/time: 12/24/15 10:19 Electronically Signed by: Saeg Granado MD 12/24/15 10:50 FINAL REPORT [facility] Vital Signs Vital Sign Value Date Comments Source Temperature Oral (F) 98.4 F 11/13/2018 [facility] Respitory Rate 17 11/13/2018 [facility] Systolic (mm Hg) 116 11/13/2018 [facility] Diastolic (mm Hg) 84 11/13/2018 [facility] Heart Rate 93 11/13/2018 [facility] Temperature Oral (F) 97.7 F 11/13/2018 [facility] Respitory Rate 18 11/13/2018 [facility] Heart Rate 97 11/13/2018 [facility] Systolic (mm Hg) 138 11/13/2018 [facility] Diastolic (mm Hg) 89 11/13/2018 [facility] Respitory Rate 17 11/13/2018 [facility] Heart Rate 98 11/13/2018 [facility] Temperature Oral (F) 97.8 F 11/13/2018 [facility] Systolic (mm Hg) 158 11/13/2018 [facility] Diastolic (mm Hg) 82 11/13/2018 [facility] Weight 61.818 11/12/2018 [facility] Height 152.4 cm 11/12/2018 [facility] BMI Calculated 26.62 11/12/2018 [facility] Height 154.94 cm 11/12/2018 [facility] Weight 68.182 11/12/2018 [facility] BMI Calculated 28.4 11/12/2018 [facility] Weight 138.7 10/20/2018 [facility] Height 59 10/20/2018 [facility] Temperature Oral (F) 97.4 F 10/20/2018 [...] 03/12/2018 [facility] Diastolic (mm Hg) 75 03/12/2018 [facility] Heart Rate 88 03/12/2018 [facility] Respitory Rate 19 03/12/2018 [facility] Respitory Rate 18 03/12/2018 [facility] Systolic (mm Hg) 174 03/12/2018 [facility] Diastolic (mm Hg) 88 03/12/2018 [facility] Heart Rate 90 03/12/2018 [facility] Systolic (mm Hg) 171 03/12/2018 [facility] Diastolic (mm Hg) 78 03/12/2018 [facility] Heart Rate 92 03/12/2018 [facility] Respitory Rate 18 03/12/2018 [facility] Temperature Oral (F) 97.9 F 03/12/2018 [facility] Temperature Oral (F) 99.0 F 03/11/2018 [facility] Height 149.86 cm 03/11/2018 [facility] Weight 61.364 03/11/2018 [facility] BMI Calculated 27.32 03/11/2018 [facility] Weight 136.4 02/17/2018 [facility] Height 60 [...] 11/08/2017 [facility] Systolic (mm Hg) 179 11/08/2017 [facility] Diastolic (mm Hg) 83 11/08/2017 [facility] Respitory Rate 18 11/08/2017 [facility] Systolic (mm Hg) 179 11/08/2017 [facility] Diastolic (mm Hg) 83 11/08/2017 [facility] Systolic (mm Hg) 180 11/08/2017 [facility] Diastolic (mm Hg) 84 11/08/2017 [facility] Respitory Rate 20 11/08/2017 [facility] Height 152.4 cm 11/08/2017 [facility] BMI Calculated 26.81 11/08/2017 [facility] Weight 62.273 11/08/2017 [facility] Heart Rate 85 11/08/2017 [facility] Temperature Oral (F) 97.7 F 11/08/2017 [facility] Weight 139 08/06/2017 [facility] Height 58 08/06/2017 Patrick Zaman Temperature Oral (F) 97.4 F 08/06/2017 [facility] Heart Rate 80 08/06/2017 Patrick Zaman Diastolic (mm Hg) 70 08/06/2017 Patrick Zaman Systolic (mm Hg) 136 08/06/2017 Patrick Zaman Encounters Location Location Details Encounter Type Encounter Number Reason For Visit Attending Provider ADM Date DC Date Status Source [facility] Outpatient [id number] Mary Tirado 12/21/2015 12/22/2015 [facility] Outpatient [id number] Chance Putnam 04/09/2017 04/10/2017 [facility] Emergency [id number] Dawood Temple 11/08/2017 11/08/2017 [facility] Emergency [id number] Chandler Ambriz 03/11/2018 03/12/2018 [facility] Observation [id number] Walker Carey 11/12/2018 11/13/2018 [facility] Discharged Recurring [id number] JASON PIERRE MD 12/15/2018 12/26/2018 [facility] Discharged Recurring [id number] JASON PIERRE MD 12/29/2018 01/25/2019 [facility] [id number] JASON PIERRE MD 01/26/2019 [facility] Discharged Inpatient [id number] GINO COREAS MD 03/02/2019 03/07/2019 [facility] Procedures Procedure Code Date Perfomer Comments Source X-ray of chest, two views [id number] 03/05/2019 [facility] Computed tomography of chest without contrast [id number] 03/02/2019 [facility] Mastectomy [id number] 09/28/1989 [facility] Cataract surgery [id number] [facility] Foot joint operations [id number] [facility]
[2019-03-12] MEDS ORDERED: ALBUTEROL/IPRATROPIUM 3 ML NEB NEB ONE (02:30)
[2019-03-12] MEDS ORDERED: ACETAMINOPHEN 325 MG TAB PO ONE (02:30)
[2019-03-12] MEDS ORDERED: AZITHROMYCIN 500MG/NS 250 ML 250 ML IV SCH (02:30)
[2019-03-12] MEDS ORDERED: METHYLPREDNISOLONE SOD SUCC 125 MG/2ML VIAL IV ONE (02:30)
[2019-03-12] MEDS ORDERED: ACETAMINOPHEN 325 MG TAB ONE (02:35)
[2019-03-12] MEDS ORDERED: AZITHROMYCIN 500MG/NS 250 ML 250 ML ONE (02:36)
[2019-03-12] MEDS ORDERED: PIPER-TAZ 3.375 GM 50 ML ONE (02:36)
[2019-03-12] MEDS: PIPER-TAZ 3.375 GM 50 ML IV SCH ×5 (02:40→23:47)
[2019-03-12 02:46] LABS: BASOPHILS % 0.1 % (0.0-1.0); EOSINOPHILS % 0.1 % (0.0-6.0); LYMPHOCYTES # (AUTO) 1.1 (1.0-3.2); MEAN CORPUSCULAR HEMOGLOBIN 30.6 pg (28-32); MEAN CORPUSCULAR HGB CONC 33.3 g/dL (31-35); MEAN CORPUSCULAR VOLUME 91.9 fL (81-99); MONOCYTES # (AUTO) 0.9 (0.2-0.8); MONOCYTES % 4.7 % (4.4-11.3); NEUTROPHILS # (AUTO) 16.3 (2.1-6.9); NEUTROPHILS % 88.6 % (38.7-80.0); PLATELET COUNT 437 x10e3/uL (140-360); RED BLOOD COUNT 3.59 x10e6/uL (3.6-5.1); RED CELL DISTRIBUTION WIDTH 14.8 % (11.7-14.4)
[2019-03-12 03:07] LABS: ALANINE AMINOTRANSFERASE 55 IU/L (0-55); ALBUMIN/GLOBULIN RATIO 0.6 (0.8-2.0); ALKALINE PHOSPHATASE 251 IU/L (40-150); ANION GAP 18.9 mmol/L (8-16); BLOOD UREA NITROGEN 25 mg/dL (7-26); BUN/CREATININE RATIO 17 (6-25); CALCIUM 9.6 mg/dL (8.4-10.2); CARBON DIOXIDE 23 mmol/L (22-29); CHLORIDE 98 mmol/L (98-107); CREATINE KINASE 89 IU/L (29-168); CREATININE, SERUM 1.49 mg/dL (0.57-1.11); EST GLOMERULAR FILTRATION RATE 33 ML/MIN (60-); GLUCOSE 140 mg/dL (74-118); POTASSIUM 3.9 mmol/L (3.5-5.1); SODIUM 136 mmol/L (136-145)
[2019-03-12 03:09] LABS: COLOR,URINE YELLOW (YELLOW)
[2019-03-12 03:10] LABS: CLARITY,URINE CLOUDY (CLEAR); KETONES,URINE 2+ (NEGATIVE); LEUKOCYTE ESTERASE ,URINE NEGATIVE (NEGATIVE); NITRITE,URINE NEGATIVE (NEGATIVE); PROTEIN,URINE DIPSTICK 2+ (NEGATIVE); URINE UROBILINOGEN 0.2 mg/dL (0.2 - 1)
[2019-03-12 03:11] LABS: BILIRUBIN,URINE NEGATIVE (NEGATIVE)
[2019-03-12] MEDS ORDERED: NEOMYCIN/POLYMYX/BACITR OINT 0.9 GM PKT TOP ONE (03:15)
[2019-03-12] MEDS ORDERED: BAYER BACK & B1 EACH PO (03:18)
[2019-03-12 03:19] LABS: AMORPHOUS SEDIMENT,URINE MANY (FEW); BACTERIA,URINE MANY /HPF; EPITHELIAL CELLS,URINE FEW /LPF; RBC,URINE 0-5 /HPF (0-5)
--- NOTE | 2019-03-12 03:22 | Diagnostic Imaging Report ---
EXAMINATION: CHEST SINGLE (PORTABLE) INDICATION: COMPARISON: Chest radiograph 03/05/2019 FINDINGS: PA and lateral views TUBES and LINES: Dual-lead pacemaker device in the right upper chest with leads overlying the right atrial appendage and right ventricle, unchanged. LUNGS: Lungs are not well inflated. There are bibasilar atelectasis. There is mild prominence of the central pulmonary vasculature, consistent with pulmonary venous congestion. PLEURA: Mild interval increase in bilateral pleural effusions.. No pneumothorax. HEART AND MEDIASTINUM: Cardiac size is mildly enlarged. BONES AND SOFT TISSUES: Anterior fusion of the cervical spine. Degenerative changes of both glenohumeral joints. Soft tissues are unremarkable. UPPER ABDOMEN: No free air under the diaphragm. IMPRESSION: Interval increase in bilateral pulmonary venous congestion and interstitial edema. Mild interval increase in bilateral pleural effusions and bibasilar atelectasis. Signed by: Dr. Sandro Jacome M.D. on 03/12/2019 3:19 AM
[2019-03-12] MEDS ORDERED: FUROSEMIDE20 MG PO (03:56)
[2019-03-12] MEDS ORDERED: FUROSEMIDE INJ 10 MG/ML 4 ML VIAL IV ONE (04:00)
[2019-03-12] MEDS ORDERED: FUROSEMIDE INJ 10 MG/ML 4 ML VIAL ONE (04:05)
[2019-03-12] MEDS ORDERED: ASPIRIN 81 MG CHEW TAB PO ONE (04:15)
[2019-03-12] MEDS ORDERED: SODIUM CHLORIDE FLUSH 10 ML SYR INJ PRN (04:15)
[2019-03-12] MEDS ORDERED: ALBUTEROL SULF 0.083% NEB SOLN 3 ML NEB NEB SCH (04:15)
--- NOTE | 2019-03-12 05:00 | NUR ---
PT ARRIVED TO UNIT AT THIS TIME VIA BED. PT AMBULATED TO BATHROOM AND HAD DYSPNEA. BEDSIDE COMMODE PLACED IN ROOM AND PT EDUCATED ON THE USE OF THE CALL LIGHT FOR ASSISTANCE TO BEDSIDE COMMODE. PT HAS NO C/O PAIN AT THIS TIME. PT RESTING COMFORTABLY IN BED. BED ALARM ON, BED IN LOWEST POSITION AND LOCKED. CALL LIGHT IN REACH. WILL CONTINUE TO MONITOR.
[2019-03-12 05:23] VITALS: BP 167/83
[2019-03-12] MEDS ORDERED: IPRATROPIUM BROMIDE 0.02% 2.5 ML NEB NEB SCH (06:00)
[2019-03-12] MEDS ORDERED: SODIUM CHLORIDE 0.9% 100 ML ONE (06:12)
--- NOTE | 2019-03-12 06:56 | NUR ---
RECEIVED PATIENT RESTING IN BED. RESPIRATIONS EVEN AND UNLABORED, NO ACUTE DISTRESS NOTED. NO S/S OF PAIN OR DISCOMFORT NOTED AT THIS TIME. CALL LIGHT WITHIN REACH. BED IN THE LOWEST POSITION. BED ALARM ON.
[2019-03-12 07:53] VITALS: BP 155/77
[2019-03-12] MEDS ORDERED: ALBUTEROL/IPRATROPIUM 3 ML NEB NEB PRN (09:00)
[2019-03-12] MEDS: FUROSEMIDE INJ 10 MG/ML 4 ML VIAL IV SCH ×2 (09:02→20:33)
[2019-03-12] MEDS: VANCOMYCIN 1GM/NS 250 ML 250 ML IV SCH (09:35)
[2019-03-12] MEDS: SENNOSIDES 8.6 MG TAB PO SCH ×2 (09:39→17:21)
[2019-03-12 09:54] VITALS: BP 155/77
--- NOTE | 2019-03-12 10:27 | Diagnostic Imaging Report ---
CT chest without enhancement CPT code: 30286 INDICATION: Shortness of breath, fever TECHNIQUE: Thin collimation axial images obtained from the thoracic inlet to the level of the diaphragm without intravenous contrast. Dose reduction techniques used: Automated exposure control, adjustment of the mAs and/or kVp according to patient size, standardized low-dose protocol, and/or iterative reconstruction technique. RADIATION DOSE: Total DLP: 496.92 mGy*cm Estimated effective dose: (DLP x 0.015 x size factor) mSv CTDIvol has been reviewed. It is below the limits set by the Radiation Protocol Committee (RPC). COMPARISON: Chest x-ray and CT chest 03/02/2019. CHEST FINDINGS: Lymph nodes: No enlarged axillary or supraclavicular lymph nodes. Upper mediastinal lymph nodes measure up to 8 mm. No enlarged hilar lymph nodes given the lack of intravenous contrast. Thyroid: Normal in size without mass in the visualized parenchyma.. Mediastinum: Stable cardiomegaly. Pacemaker wires terminate in the right atrium and right ventricle. Small pericardial effusion measures 9 mm. The esophagus is collapsed. Airways: Calcified throughout the tracheobronchial tree. Lungs: Right: Diffuse hyperinflation. Subsegmental atelectasis in the aerated portions of the upper, middle, and lower lobes the consolidation in the lateral and inferior upper lobe is diminishing. The patchy airspace opacities in the lower lobe are less conspicuous but this may be due to increasing atelectasis. There is moderate posterior atelectasis of the upper and lower lobes. Left: Diffuse hyperinflation. Patchy airspace opacities of the upper and lower lobes are becoming smaller and more concentrated. There is moderate atelectasis of the lower lobe and posterior upper lobe. Pleura: Posterior layering pleural effusions measure 5.9 cm on the right and 4.3 cm on the left. These have increased in size. No pneumothorax. ABDOMEN FINDINGS: Stable left adrenal thickening. No new findings in the upper abdomen. Bones: Stable degenerative changes of the spine. Postoperative changes of the lower cervical spine are stable. IMPRESSION: 1. Enlarging bilateral pleural effusions with associated atelectasis. 2. Patchy airspace opacities in the left lung are becoming smaller and more concentrated. The airspace opacities in the right lung are diminishing. 3. No new findings in the upper abdomen. Signed by: Dr. Angelito Luna MD on 03/12/2019 10:24 AM
[2019-03-12] MEDS ORDERED: METOPROLOL TART50 MG PO (11:16)
[2019-03-12] MEDS ORDERED: ACETAMINOPHEN/CODEINE 300MG - 30MG TAB PO PRN (11:30)
[2019-03-12 12:11] LABS: CREATINE KINASE MB 3.5 ng/mL (0-5.0)
[2019-03-12 12:38] VITALS: BP 146/64
--- NOTE | 2019-03-12 13:25 | NUR ---
Paged Dr. Campbell to see if it's ok to do US of chest on Thursday due to US team not here on the weekend, per MD ok to be done Thursday.
[2019-03-12] MEDS: ALBUTEROL/IPRATROPIUM 3 ML NEB NEB SCH ×2 (14:03→19:55)
[2019-03-12 17:00] VITALS: BP 130/68
[2019-03-12] MEDS ORDERED: SENNOSIDES 8.6 MG TAB PO SCH (17:00)
--- NOTE | 2019-03-12 17:13 | History and Physical ---
CHIEF COMPLAINT: Fever, shortness of breath. HISTORY OF PRESENT ILLNESS: The patient is an 88-year-old female, recently discharged home on March 08, 2019. At that time, she is status post sepsis without shock on admission with multilobar bilateral pneumonia. The patient also has baseline right permanent pacemaker, hypothyroidism. The patient went home with oxygen support, came back in now with fever, increasing shortness of breath. Chest x-ray showed vascular congestion. The patient is initiated on IV Lasix and antibiotics. Her WBC was 18.3. Her fever has broke now, temperature is 98. The patient is stable. PAST MEDICAL AND SURGICAL HISTORY: Sick sinus syndrome with permanent pacemaker, hypothyroidism, hypertension, osteoarthritis, right ulnar nerve surgery, right permanent pacemaker, recent pneumonia, multifocal pneumonia. Last echocardiogram showed an ejection fraction of 55%. SOCIAL HISTORY: The patient does not smoke or use alcohol. No recreational drug use. ALLERGIES: NO KNOWN ALLERGIES. HOME MEDICATIONS: List will be reviewed. PHYSICAL EXAMINATION: VITAL SIGNS: Temperature is 98, blood pressure 155/77, pulse rate 65, respirations 18. GENERAL: The patient is not in acute distress. She is resting. HEENT: Normocephalic, atraumatic. Anicteric. NECK: Supple grossly. PULMONARY: Diminished breath sounds. CARDIOVASCULAR: S1 and S2. Regular rate and rhythm. ABDOMEN: Soft, nontender, nondistention. EXTREMITIES: No cyanosis or edema. NEUROLOGIC: No focal deficit. LABORATORY DATA: Sodium is 136, potassium 3.9, chloride 98, bicarb 23, BUN 25, creatinine 1.4, glucose 140. WBC is 18, hemoglobin 11, hematocrit 33, platelets 437. IMAGING DATA: Chest x-ray shows vascular congestion. IMPRESSION: 1. Vascular congestion, could be [id number] diastolic dysfunction, congestive heart failure. Echocardiogram, ejection fraction of 55% to 60%. 2. Possible worsening pneumonia. Need to workup for parapneumonic effusion on the basilar area. PLAN: Antibiotics. IV Lasix. Consultation with Dr. Rogelio Weiner and Dr. Rogelio Campbell. CT of the chest without IV contrast. We will check the patient's lab work in the morning. We will resume home medication, nebulizer treatment. MD CHARLES Kirk/MODL :05:54 /[id number]
[2019-03-12] MEDS: ENOXAPARIN SOD INJ 40 MG/0.4 ML SYR SC SCH (17:21)
[2019-03-12] MEDS: GABAPENTIN 300 MG CAP PO SCH (17:21)
[2019-03-12] MEDS: METOPROLOL TARTRATE 50 MG TAB PO SCH (17:21)
--- NOTE | 2019-03-12 18:49 | NUR ---
REPORT GIVEN TO ONCOMING NURSE, PATIENT IS RESTING IN BED. NO ACUTE DISTRESS NOTED, RESPIRATIONS EVEN AND UNLABORED. CALL LIGHT WITHIN REACH. BED IN THE LOWEST POSITION. BED ALARM ON.
--- NOTE | 2019-03-12 18:53 | NUR ---
BEDSIDE REPORT RECEIVED. PT STATES 0/10 PAIN AT THIS TIME. PT RESTING COMFORTABLY. PT REQUESTING TO WASH FACE AND BRUSH TEETH. TOOTHBRUSH AND SUPPLIES PROVIDED TO PT AT THIS TIME. BED IS LOCKED, LOWEST POSITION, BED ALARM IS ON AND CALL LIGHT IS IN REACH. PT EDUCATED TO CALL FOR ASSISTANCE WHEN NEEDING TO GET UP.
--- NOTE | 2019-03-12 19:23 | Consultation ---
DATE OF CONSULTATION: 03/12/2019 Pulmonary Consult[address] Patient of Dr. Núñez, Dr. Frank, Dr. Weiner, Dr. Mcduffie. HISTORY OF PRESENT ILLNESS: A charming 88-year-old woman, ill for approximately 2 days with fever and swelling only one day, recent pneumonia. Denies dietary indiscretion, eating only homemade food. Denies sputum production. Had a low-grade fevers on admission, but otherwise afebrile. Temperature on admission was 101.2. MEDICATIONS: Home medications have included Lasix p.r.n., biotin, Tylenol No. 3, amlodipine, aspirin, gabapentin, Levoxyl, melatonin, metoprolol, pramipexole, and vitamin B12. PAST MEDICAL HISTORY: She has a history of restless legs syndrome, neuropathy, degenerative joint disease, chronic edema and wounds in the lower extremities, which have healed; chronic atrial fibrillation. 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 Nonsmoker. No alcohol use. FAMILY HISTORY: Positive for coronary artery disease. PHYSICAL EXAMINATION: GENERAL: This brightly white female, in no acute distress. VITAL SIGNS: Temperature 96.9, T-max was 101; pulse 65, regular; respirations 18, blood pressure 155/77. HEAD: Normocephalic, atraumatic. EYES: Extraocular movements intact. LUNGS: Diminished breath sounds at bases. HEART: Irregular rhythm. ABDOMEN: Nontender. EXTREMITIES: Stasis changes, only trace edema. PLAN: Diuresis. Consider thoracentesis. Antibiotic therapy. Urine and sputum cultures and blood cultures are pending. We will request . Resume home medications. Thank you for this kind referral. MD ANUPAM Feng/BREANAL /[id number]
[2019-03-12 19:54] LABS: CREATINE KINASE MB 1.9 ng/mL (0-5.0)
[2019-03-12 20:00] VITALS: BP 135/63
[2019-03-12] MEDS: MELATONIN 5 MG TABLET PO SCH (20:32)
[2019-03-12] MEDS: PRAMIPEXOLE DIHYDROCHLORIDE 0.25 MG TAB PO SCH (20:32)
[2019-03-13] VITALS (7 sets, daily range): BP systolic 129–162; BP diastolic 62–74
[2019-03-13] MEDS: ALBUTEROL/IPRATROPIUM 3 ML NEB NEB SCH ×4 (02:15→19:15)
[2019-03-13] MEDS: LEVOTHYROXINE SODIUM 50 MCG TAB PO SCH (05:52)
[2019-03-13] MEDS: PIPER-TAZ 3.375 GM 50 ML IV SCH (05:55)
--- NOTE | 2019-03-13 05:56 | NUR ---
PT REPOSITIONED IN BED AT THIS TIME. PT STATES THAT SHE IS COMFORTABLE. PAIN DENIES C/O PAIN AT THIS TIME. PATIENT RESPIRATIONS EVEN AND REGULAR AND APPEARS IN NO DISTRESS AT THIS TIME, NASAL CANULA IN PLACE. BED IS LOCKED AND IN LOW POSITION WITH BED ALARM ON. PT RE EDUCATED TO USE CALL LIGHT FOR ASSISTANCE.
--- NOTE | 2019-03-13 06:52 | NUR ---
REPORT GIVEN TO ONCOMING NURSE, PATIENT IS RESTING IN BED. NO ACUTE DISTRESS NOTED, RESPIRATIONS EVEN AND UNLABORED. DENIES PAIN OR DISCOMFORT AT THIS TIME. CALL LIGHT WITHIN REACH. BED IN THE LOWEST POSITION. Addendum: 03/13/19 at 1923 by ILDA ELIZABETH RN RECEIVED REPORT FROM OFF-GOING NURSE
[2019-03-13 07:48] LABS: ALBUMIN 2.4 g/dL (3.5-5.0); ALBUMIN/GLOBULIN RATIO 0.5 (0.8-2.0); ANION GAP 16.1 mmol/L (8-16); CALCIUM 9.5 mg/dL (8.4-10.2); CREATININE, SERUM 1.47 mg/dL (0.57-1.11); POTASSIUM 3.1 mmol/L (3.5-5.1)
[2019-03-13 08:01] LABS: BASOPHILS % 0.1 % (0.0-1.0); HEMATOCRIT 29.8 % (34.2-44.1); HEMOGLOBIN 9.8 g/dL (12.0-16.0); LYMPHOCYTES # (AUTO) 0.9 (1.0-3.2); LYMPHOCYTES % 4.2 % (18.0-39.1); MEAN CORPUSCULAR HGB CONC 32.9 g/dL (31-35); MEAN CORPUSCULAR VOLUME 91.1 fL (81-99); MONOCYTES # (AUTO) 0.9 (0.2-0.8); MONOCYTES % 4.2 % (4.4-11.3); NEUTROPHILS # (AUTO) 18.6 (2.1-6.9); NEUTROPHILS % 90.9 % (38.7-80.0); PLATELET COUNT 395 x10e3/uL (140-360); RED BLOOD COUNT 3.27 x10e6/uL (3.6-5.1); RED CELL DISTRIBUTION WIDTH 14.7 % (11.7-14.4)
[2019-03-13 08:19] LABS: CREATINE KINASE MB 1.8 ng/mL (0-5.0)
[2019-03-13] MEDS ORDERED: POTASSIUM CHLORIDE 20 MEQ TAB CR PO ONE (08:30)
[2019-03-13] MEDS: AMLODIPINE BESYLATE 5 MG TAB PO SCH (08:53)
[2019-03-13] MEDS: METOPROLOL TARTRATE 50 MG TAB PO SCH ×2 (08:53→16:54)
[2019-03-13] MEDS: SENNOSIDES 8.6 MG TAB PO SCH ×2 (08:53→16:54)
[2019-03-13] MEDS: GABAPENTIN 300 MG CAP PO SCH ×2 (08:53→16:54)
[2019-03-13] MEDS: ASPIRIN 81 MG CHEW TAB PO SCH (08:53)
[2019-03-13] MEDS: CYANOCOBALAMIN 1,000 MCG TAB PO SCH (08:53)
[2019-03-13] MEDS: VANCOMYCIN 1GM/NS 250 ML 250 ML IV SCH (08:56)
[2019-03-13] MEDS: FUROSEMIDE INJ 10 MG/ML 4 ML VIAL IV SCH ×2 (08:56→20:28)
[2019-03-13] MEDS ORDERED: BISACODYL 10 MG SUPP PR ONE (11:00)
[2019-03-13] MEDS ORDERED: BISACODYL 10 MG SUPP PR PRN (11:00)
[2019-03-13] MEDS ORDERED: POTASSIUM CHLORIDE 10MEQ EA PO SCH (11:15)
[2019-03-13] MEDS: AZTREONAM 1 GM/NS 50 ML 50 ML IV SCH ×2 (11:30→23:14)
--- NOTE | 2019-03-13 15:23 | Consultation ---
DATE OF CONSULTATION: 03/13/2019 Cardiology Consultation CHIEF COMPLAINT: Shortness of breath. HISTORY OF PRESENT ILLNESS: The patient is an 88-year-old, came to the emergency room with shortness of breath and was subsequently admitted. The patient was recently hospitalized and discharged on March 08, 2019. The patient returned to the hospital with shortness of breath. The patient was noted to have worsening pulmonary edema on a chest x-ray and the BNP level was markedly elevated. The patient had no chest pain. The patient was given IV Lasix and her symptoms improved dramatically. The patient has had no nausea, no vomiting, no abdominal pain. PAST MEDICAL HISTORY: Significant for: 1. Permanent pacemaker placement. 2. Chronic diastolic heart failure. 3. Hypothyroidism. 4. Hypertension. 5. Recent echocardiogram demonstrating an ejection fraction of 55%-60%. MEDICATIONS: At home include: 1. Amlodipine. 2. Aspirin. 3. Furosemide. 4. Gabapentin. 5. Metoprolol. SOCIAL HISTORY: The patient does not drink and does not smoke. The patient lives at home. FAMILY HISTORY: There is no family history of coronary artery disease. PHYSICAL EXAMINATION: GENERAL: The patient is an older female, in no obvious distress. VITAL SIGNS: Included temperature of 96.6, blood pressure of 129/62, and pulse is 78. HEAD, EARS, EYES, NOSE, AND THROAT: The patient's cranium was normocephalic and atraumatic. Extraocular muscles were intact. Sclerae were anicteric. Pupils were equal, round, and reactive to light. There is no pallor, cyanosis of the oral mucosa. There is no erythema or edema in the throat. NECK: Supple. No jugular venous distention. CHEST: Demonstrated rise bilaterally. CARDIAC: Demonstrated a normal S1 and S2 with a short 2/6 systolic murmur. ABDOMEN: Demonstrated good bowel sounds. No tenderness and no masses. EXTREMITIES: No clubbing. No cyanosis. No edema. NEUROLOGICAL: The patient was awake and moving all extremities. The patient's EKG demonstrated AV paced. IMPRESSION: The patient is an 88-year-old with acute diastolic heart failure. RECOMMENDATIONS: As follows: 1. The patient will be given IV Lasix as needed. 2. Recent echocardiogram demonstrated normal left ventricular function. This in the echocardiogram does not need to be repeated at this time. 3. The patient will need to return to the office in one week after discharge for followup. MD MANPREET Holm/BREANAL /[id number] cc: Eduard Núñez MD
[2019-03-13] MEDS: POLYETHYLENE GLYCOL 3350 17 GM PACK PO SCH (16:40)
[2019-03-13] MEDS: ENOXAPARIN SOD INJ 40 MG/0.4 ML SYR SC SCH (16:54)
[2019-03-13] MEDS: MELATONIN 5 MG TABLET PO SCH (20:31)
[2019-03-13] MEDS: PRAMIPEXOLE DIHYDROCHLORIDE 0.25 MG TAB PO SCH (20:31)
--- NOTE | 2019-03-13 20:33 | NUR ---
PT RESTING COMFORTABLY IN BED AT THIS TIME. PT HAS NO C/O PAIN. BED IS IN LOW LOCKED POSITION WITH CALL LIGHT IN REACH. BED ALARM IS ON. PT EDUCATED TO USE CALL LIGHT FOR ASSISTANCE.
[2019-03-13] MEDS ORDERED: SODIUM CHLORIDE 0.9% 250ML 250 ML ONE (23:15)
[2019-03-14] VITALS (8 sets, daily range): BP systolic 145–182; BP diastolic 63–83
[2019-03-14] MEDS: ALBUTEROL/IPRATROPIUM 3 ML NEB NEB SCH ×4 (01:20→20:10)
[2019-03-14] MEDS: LEVOTHYROXINE SODIUM 50 MCG TAB PO SCH (05:58)
--- NOTE | 2019-03-14 06:00 | NUR ---
PT RESTING COMFORTABLY IN BED. PT APPEARS IN NO DISTRESS. PT SAT UP IN BED AT THIS TIME AND ASSISTED PT IN TURNING ON LIGHTS SO SHE CAN WATCH TV AT THIS TIME. PT HAS NO C/O OF PAIN. BED IS IN LOW LOCKED POSITION WITH BED ALARM ON. PT EDUCATED TO USE CALL LIGHT FOR ASSISTANCE.
[2019-03-14 06:22] LABS: BASOPHILS % 0.2 % (0.0-1.0); EOSINOPHILS # (AUTO) 0.1 (0.0-0.4); EOSINOPHILS % 0.4 % (0.0-6.0); HEMATOCRIT 29.1 % (34.2-44.1); HEMOGLOBIN 9.8 g/dL (12.0-16.0); LYMPHOCYTES # (AUTO) 1.7 (1.0-3.2); MEAN CORPUSCULAR HEMOGLOBIN 30.6 pg (28-32); MEAN CORPUSCULAR HGB CONC 33.7 g/dL (31-35); MEAN CORPUSCULAR VOLUME 90.9 fL (81-99); MONOCYTES # (AUTO) 0.8 (0.2-0.8); MONOCYTES % 6.9 % (4.4-11.3); NEUTROPHILS # (AUTO) 9.2 (2.1-6.9); NEUTROPHILS % 78.1 % (38.7-80.0); PLATELET COUNT 416 x10e3/uL (140-360); RED CELL DISTRIBUTION WIDTH 14.9 % (11.7-14.4)
[2019-03-14 06:46] LABS: ANION GAP 15.2 mmol/L (8-16); CALCIUM 9.3 mg/dL (8.4-10.2); CREATININE, SERUM 1.45 mg/dL (0.57-1.11); POTASSIUM 3.2 mmol/L (3.5-5.1)
--- NOTE | 2019-03-14 07:30 | NUR ---
PT UP ON SIDE OF BED ,DENIES PAIN,O2 2L NC IN PLACE
[2019-03-14] MEDS: POTASSIUM CHLORIDE 10MEQ EA PO SCH (08:49)
[2019-03-14] MEDS: AMLODIPINE BESYLATE 5 MG TAB PO SCH (08:51)
[2019-03-14] MEDS: POLYETHYLENE GLYCOL 3350 17 GM PACK PO SCH ×2 (08:51→17:00)
[2019-03-14] MEDS: METOPROLOL TARTRATE 50 MG TAB PO SCH ×2 (08:51→17:00)
[2019-03-14] MEDS: GABAPENTIN 300 MG CAP PO SCH ×2 (08:51→17:00)
[2019-03-14] MEDS: CYANOCOBALAMIN 1,000 MCG TAB PO SCH (08:51)
[2019-03-14] MEDS: SENNOSIDES 8.6 MG TAB PO SCH ×2 (08:51→17:00)
[2019-03-14] MEDS: ASPIRIN 81 MG CHEW TAB PO SCH (08:57)
[2019-03-14] MEDS: VANCOMYCIN 1GM/NS 250 ML 250 ML IV SCH (08:57)
[2019-03-14] MEDS: FUROSEMIDE INJ 10 MG/ML 4 ML VIAL IV SCH ×2 (08:57→20:18)
[2019-03-14] MEDS ORDERED: POTASSIUM CHLORIDE 10MEQ EA PO SCH (09:30)
--- NOTE | 2019-03-14 09:42 | Diagnostic Imaging Report ---
Exam: Limited chest ultrasound. History: Pleural effusions. Comparison: 03/12/2019 Findings: Moderate bilateral pleural effusions are present. There is associated compressive atelectasis. Impression: Moderate bilateral pleural effusions. Signed by: Dr. Silverio Reeves DO on 03/14/2019 9:38 AM
[2019-03-14] MEDS: AZTREONAM 1 GM/NS 50 ML 50 ML IV SCH ×2 (11:00→22:48)
--- NOTE | 2019-03-14 12:07 | NUR ---
WOUND CARE NURSE INITIAL CONSULTATION. 88 YEAR OLD FEMALE ADMITTED TO [facility] WITH DX OF FEVER, LEUKOCYTOSIS, PNEUMONIA, AND PULMONARY EDEMA. HEAD TO TOE SKIN ASSESSMENT PERFORMED TODAY. PT PRESENTS WITH A 3X1X0.1CM ABRASION TO HER BACK, 100% HEALING, STABLE ESCHAR. 2.5X2.5X0.2CM CIRCULAR ABRASION TO RIGHT AC, WELL WITH A 1X0.2X0.1CM HEALING SKIN TEAR TO RIGHT FOREARM. PER DAUGHTER AT BEDSIDE ALL THIS ARE CAUSED BY A FALL AT HOME. THERE ARE NO S/S OF INFECTION. NO OTHER AREAS OF CONCERN NOTED AT THIS TIME. LABS: WBC: 11.80 ALB: 2.4 URINE AND BLOOD CX RESULTS ARE PENDING. RECOMMENDATIONS: CLEAN RIGHT AC ABRASION, RIGHT FOREARM SKIN TEAR AND BACK ABRASION WITH NS, APPLY BACTROBAN AND COVER WITH XEROFORM GAUZE FOLLOWED BY 4X4 GAUZE AND TAPE. (DO NOT APPLY TAPE DIRECTLY ON PT'S SKIN). CHANGE DRESSINGS EVERY OTHER DAY AND PRN. CONTINUE WITH ALTERNATING LOW AIR LOSS MATTRESS PROVIDE BILATERAL HEEL PROTECTORS REPOSITION PT EVERY [address] PRN. THAN[address] COREAS FOR THIS CONSULTATION. Addendum: 03/14/19 at 1219 by Sophia Dukes RN Amended: Links added.
[2019-03-14] MEDS: ENOXAPARIN SOD INJ 40 MG/0.4 ML SYR SC SCH (17:00)
--- NOTE | 2019-03-14 18:24 | NUR ---
pt up in chair denies pain,no distress ntoed
--- NOTE | 2019-03-14 19:00 | NUR ---
Report and walking rounds completed. Patient in bed with call light within reach. No issues or concerns. Will continue to monitor.
[2019-03-14] MEDS: PRAMIPEXOLE DIHYDROCHLORIDE 0.25 MG TAB PO SCH (20:18)
[2019-03-14] MEDS: MELATONIN 5 MG TABLET PO SCH (20:18)
[2019-03-15] VITALS (8 sets, daily range): BP systolic 140–167; BP diastolic 63–93
[2019-03-15] MEDS: ALBUTEROL/IPRATROPIUM 3 ML NEB NEB SCH ×4 (00:50→19:00)
[2019-03-15] MEDS: LEVOTHYROXINE SODIUM 50 MCG TAB PO SCH (05:30)
--- NOTE | 2019-03-15 06:00 | NUR ---
Up to bed side chair, call light within reach, no issues or concerns. Will continue to monitor.
[2019-03-15 06:49] LABS: ANION GAP 17.3 mmol/L (8-16); CALCIUM 9.8 mg/dL (8.4-10.2); CREATININE, SERUM 1.27 mg/dL (0.57-1.11); POTASSIUM 4.3 mmol/L (3.5-5.1)
--- NOTE | 2019-03-15 07:30 | NUR ---
PT UP IN CHAIR ,NO S/S DISTRESS NOTED,PAIN LEVEL 3
[2019-03-15 07:42] LABS: BASOPHILS % 0.2 % (0.0-1.0); EOSINOPHILS # (AUTO) 0.1 (0.0-0.4); EOSINOPHILS % 1.3 % (0.0-6.0); HEMATOCRIT 35.1 % (34.2-44.1); HEMOGLOBIN 11.2 g/dL (12.0-16.0); LYMPHOCYTES # (AUTO) 1.9 (1.0-3.2); LYMPHOCYTES % 20.1 % (18.0-39.1); MEAN CORPUSCULAR HEMOGLOBIN 29.7 pg (28-32); MEAN CORPUSCULAR HGB CONC 31.9 g/dL (31-35); MEAN CORPUSCULAR VOLUME 93.1 fL (81-99); MONOCYTES # (AUTO) 0.7 (0.2-0.8); MONOCYTES % 7.7 % (4.4-11.3); NEUTROPHILS # (AUTO) 6.5 (2.1-6.9); NEUTROPHILS % 70.4 % (38.7-80.0); PLATELET COUNT 453 x10e3/uL (140-360); RED BLOOD COUNT 3.77 x10e6/uL (3.6-5.1); RED CELL DISTRIBUTION WIDTH 14.9 % (11.7-14.4)
--- NOTE | 2019-03-15 08:55 | Diagnostic Imaging Report ---
EXAMINATION: PA and lateral views of the chest. COMPARISON: CT chest 03/12/2019, chest radiograph 03/12/2019 CLINICAL HISTORY: CHF DISCUSSION: Aeration of the lungs has improved relative to 03/12/2019, with interval decrease in now small bilateral pleural effusions and improvement in interstitial pulmonary edema. No new consolidations. Unchanged appearance of right subclavian approach implantable cardiac device body and leads. Cardiomediastinal contour is unchanged with atherosclerotic calcification of the thoracic aorta. No acute osseous abnormalities. High riding right humeral head with resorted changes of the acromion process likely related to chronic rotator cuff tear. Associated bilateral glenohumeral degenerative changes. Multilevel degenerative disc changes of the thoracic spine. IMPRESSION: Improved interstitial pulmonary edema and bilateral pleural effusions relative to 03/12/2019. Signed by: Dr. Rogelio Joe M.D. on 03/15/2019 8:51 AM
[2019-03-15] MEDS: POLYETHYLENE GLYCOL 3350 17 GM PACK PO SCH ×2 (09:17→16:35)
[2019-03-15] MEDS: ASPIRIN 81 MG CHEW TAB PO SCH (09:17)
[2019-03-15] MEDS: GABAPENTIN 300 MG CAP PO SCH ×2 (09:17→16:35)
[2019-03-15] MEDS: POTASSIUM CHLORIDE 10MEQ EA PO SCH (09:17)
[2019-03-15] MEDS: AMLODIPINE BESYLATE 5 MG TAB PO SCH (09:18)
[2019-03-15] MEDS: MUPIROCIN 2% OINT 22 GM TUBE TOP SCH (09:18)
[2019-03-15] MEDS: FUROSEMIDE INJ 10 MG/ML 4 ML VIAL IV SCH ×2 (09:18→21:47)
[2019-03-15] MEDS: SENNOSIDES 8.6 MG TAB PO SCH ×2 (09:18→16:35)
[2019-03-15] MEDS: CYANOCOBALAMIN 1,000 MCG TAB PO SCH (09:18)
[2019-03-15] MEDS: METOPROLOL TARTRATE 50 MG TAB PO SCH ×2 (09:23→16:35)
--- NOTE | 2019-03-15 09:30 | NUR ---
PT C/O LT ARM PAIN MEDICATED
--- NOTE | 2019-03-15 10:35 | NUR ---
SPOKE WITH PT ABOUT SNF ORDER, GAVE OPTIONS IN NETWORK. JABARI CARNEGIEJACQUELINE [facility], [facility], [facility], [facility], [facility], [facility], AND [facility]. SHE WILL SPEAK WITH HER FAMILY AND I WILL RETURN THIS EVENING TO GET CHOICE.
[2019-03-15] MEDS: AZTREONAM 1 GM/NS 50 ML 50 ML IV SCH ×2 (10:56→21:47)
--- NOTE | 2019-03-15 13:20 | NUR ---
PT UP AMBULATING IN [facility].
[2019-03-15] MEDS: ENOXAPARIN SOD INJ 40 MG/0.4 ML SYR SC SCH (16:35)
--- NOTE | 2019-03-15 17:55 | NUR ---
PT UP IN CHAIR DENIES PAIN
--- NOTE | 2019-03-15 19:00 | NUR ---
RECEIVED PATIENT IN BEDSIDE REPORT. PATIENT RESTING IN BED AT THIS TIME. NO PAIN REPORTED. NO S&S OF DISTRESS NOTED. BED LOCKED IN LOWEST POSITION, SIDE RAILS UPX2, CALL LIGHT IN REACH.
[2019-03-15] MEDS: PRAMIPEXOLE DIHYDROCHLORIDE 0.25 MG TAB PO SCH (21:47)
[2019-03-15] MEDS: MELATONIN 5 MG TABLET PO SCH (21:47)
[2019-03-16] VITALS (8 sets, daily range): BP systolic 126–162; BP diastolic 57–74
[2019-03-16] MEDS: ALBUTEROL/IPRATROPIUM 3 ML NEB NEB SCH ×4 (01:10→19:25)
[2019-03-16] MEDS: LEVOTHYROXINE SODIUM 50 MCG TAB PO SCH (05:54)
--- NOTE | 2019-03-16 07:00 | NUR ---
PATIENT IS AWAKE AND SITTING IN A CHAIR- PATIENT IS IN STABLE CONDITION WITH NO S/S OF RESPIRATORY DISTRESS. NO PAIN VOICED. 02 APPLIED. ALLEVYN PAD APPLIED TO BACK. SKIN TEAR NOTED TO RIGHT WRIST AREA. CALL LIGHT IS WITHIN REACH, PATIENT INSTRUCTED TO CALL FOR ASSISTANCE NEEDED.
[2019-03-16] MEDS: ACETAMINOPHEN 325 MG TAB PO PRN ×2 (08:15→23:55)
[2019-03-16] MEDS: ASPIRIN 81 MG CHEW TAB PO SCH (08:15)
[2019-03-16] MEDS: POTASSIUM CHLORIDE 10MEQ EA PO SCH (08:16)
[2019-03-16] MEDS: METOPROLOL TARTRATE 50 MG TAB PO SCH ×2 (08:16→16:15)
[2019-03-16] MEDS: POLYETHYLENE GLYCOL 3350 17 GM PACK PO SCH ×2 (08:16→16:15)
[2019-03-16] MEDS: AMLODIPINE BESYLATE 5 MG TAB PO SCH (08:17)
[2019-03-16] MEDS: SENNOSIDES 8.6 MG TAB PO SCH ×2 (08:17→16:15)
[2019-03-16] MEDS: MUPIROCIN 2% OINT 22 GM TUBE TOP SCH (08:17)
[2019-03-16] MEDS: GABAPENTIN 300 MG CAP PO SCH ×2 (08:17→16:15)
[2019-03-16] MEDS: CYANOCOBALAMIN 1,000 MCG TAB PO SCH (08:17)
[2019-03-16] MEDS: FUROSEMIDE INJ 10 MG/ML 4 ML VIAL IV SCH ×2 (08:20→21:00)
--- NOTE | 2019-03-16 10:59 | NUR ---
DAUGHTER SIGNED CHOICE FOR [facility] FAXED CLINICALS [phone]
[2019-03-16] MEDS: AZTREONAM 1 GM/NS 50 ML 50 ML IV SCH ×2 (11:35→22:00)
--- NOTE | 2019-03-16 14:05 | NUR ---
CHOICE SIGNED FOR [facility]. FAXED CLINICALS TO [phone]. PENDING AUTH.
[2019-03-16] MEDS: ENOXAPARIN SOD INJ 40 MG/0.4 ML SYR SC SCH (16:16)
--- NOTE | 2019-03-16 16:43 | NUR ---
FACILITY ASKING FOR A PEER TO PEER, GAVE MD INFORMATION.
--- NOTE | 2019-03-16 19:22 | NUR ---
PATIENT IS SITTING IN A CHAIR-IN STABLE CONDITION WITH NO S/S OF RESPIRATORY DISTRESS. NO PAIN VOICED. CALL LIGHT IS WITHIN REACH, PATIENT INSTRUCTED TO CALL FOR ASSISTANCE NEEDED. BEDSIDE REPORT GIVEN TO ONCOMING NURSE.
--- NOTE | 2019-03-16 19:24 | NUR ---
PT IS RESTING IN THE CHAIR. NO RESPIRATORY DISTRESS NOTED. BED IN THE LOWEST POSITION, LOCKED, AND CALL LIGHT WITHIN REACH. WILL CONTINUE TO MONITOR.
[2019-03-16] MEDS: PRAMIPEXOLE DIHYDROCHLORIDE 0.25 MG TAB PO SCH (21:45)
[2019-03-16] MEDS: MELATONIN 5 MG TABLET PO SCH (21:45)
[2019-03-17 00:12] VITALS: BP 161/67
[2019-03-17] MEDS: ALBUTEROL/IPRATROPIUM 3 ML NEB NEB SCH ×3 (00:25→13:55)
[2019-03-17 04:51] VITALS: BP 143/64
[2019-03-17] MEDS: LEVOTHYROXINE SODIUM 50 MCG TAB PO SCH (05:13)
--- NOTE | 2019-03-17 07:00 | NUR ---
PATIENT IS SITTING IN THE CHAIR-IN STABLE CONDITION WITH NO S/S OF RESPIRATORY DISTRESS. NO PAIN VOICED. CALL LIGHT IS WITHIN REACH, PATIENT INSTRUCTED TO CALL FOR ASSISTANCE NEEDED.
[2019-03-17] MEDS: GABAPENTIN 300 MG CAP PO SCH (08:10)
[2019-03-17] MEDS: POTASSIUM CHLORIDE 10MEQ EA PO SCH (08:10)
[2019-03-17] MEDS: MUPIROCIN 2% OINT 22 GM TUBE TOP SCH (08:15)
[2019-03-17] MEDS: FUROSEMIDE INJ 10 MG/ML 4 ML VIAL IV SCH (08:15)
[2019-03-17] MEDS: ASPIRIN 81 MG CHEW TAB PO SCH (08:15)
[2019-03-17] MEDS: POLYETHYLENE GLYCOL 3350 17 GM PACK PO SCH (08:15)
[2019-03-17] MEDS: AMLODIPINE BESYLATE 5 MG TAB PO SCH (08:15)
[2019-03-17] MEDS: CYANOCOBALAMIN 1,000 MCG TAB PO SCH (08:15)
[2019-03-17] MEDS: METOPROLOL TARTRATE 50 MG TAB PO SCH (08:15)
[2019-03-17] MEDS: SENNOSIDES 8.6 MG TAB PO SCH (08:15)
[2019-03-17 08:28] VITALS: BP 148/65
[2019-03-17 09:41] VITALS: BP 148/65
[2019-03-17] MEDS: AZTREONAM 1 GM/NS 50 ML 50 ML IV SCH (10:09)
[2019-03-17 11:05] LABS: ANION GAP 16.4 mmol/L (8-16); CALCIUM 9.9 mg/dL (8.4-10.2); CREATININE, SERUM 1.27 mg/dL (0.57-1.11); POTASSIUM 4.4 mmol/L (3.5-5.1)
--- NOTE | 2019-03-17 11:38 | NUR ---
CM WAS NOTIFIED PT HAD A BED AT [facility]; RM 52A. RTF WAS INITIATED. CALL WAS PLACED TO DTR; AUGUSTUS BAUMAN @ [phone] TO NOTIFY OF RM ASSIGNED, TRANSPORT CHOICE AND IMM LETTER. CM LEFT VM W CONTACT INFO.
--- NOTE | 2019-03-17 11:47 | NUR ---
PT'S DTR RETURNED CALL. AUGUSTUS WAS NOTIFIED OF RM ASSIGNMENT. CONSENT WAS GIVEN FOR AMBULANCE TRANSPORT AND IMM LETTER; COSIGNED BY LEANNA LEE. COPY TO PT AND COPY TO CHART. RTF GIVEN TO SEC. UBALDO
[2019-03-17 12:00] VITALS: BP 141/65
--- NOTE | 2019-03-17 13:00 | NUR ---
CALL PLACED OUT TO DR. COREAS REGARDING DISCHARGE ORDER- AWAITING CALLBACK.
--- NOTE | 2019-03-17 13:52 | NUR ---
TRANSFER REPORT GIVEN TO SAUL JOHNSON AT 1345. PATIENT IS TRANSFERRING TO ROOM 612
--- NOTE | 2019-03-17 15:55 | NUR ---
PATIENT TRANSFER TO [facility]- PATIENT OFF THE UNIT AT 1556 PER STRETCHER BY 2 PERSON EMS SERVICE. PERSON IS IN STABLE CONDITION WITH NO S/S OF RESPIRATORY DISTRESS. NO PAIN VOICED. 02 APPLIED AT 3L NC. IV REMOVED AT 1532 WITH TIP INTACT. TRANSFER PACKET GIVEN TO EMS SERVICE. ALL PERSONAL ITEMS TAKEN WITH THE PATIENT AND HER DAUGHTER.
[2019-03-18] MEDS ORDERED: FUROSEMIDE 40 MG TAB PO SCH (06:00)
--- NOTE | 2019-04-30 04:42 | Discharge Summary ---
CONSULTANTS: 1. Dr. Rogelio Weiner. 2. Dr. Rogelio Campbell. FINAL DIAGNOSES: 1. Acute on chronic systolic dysfunction and congestive heart failure. 2. Atypical pneumonia. 3. Acute exacerbation of chronic obstructive pulmonary disease. 4. Medical debility. SUMMARY: The patient is an 88 years female, came in with increasing shortness of breath, wheezing, fluid overload. The patient found to have significant infection. She had elevated white cell count of WBC 18.3 thousand. BUN and creatinine 25 and 1.4 respectively. The patient admitted consultation with Dr. Rogelio Campbell and Dr. Rogelio Weiner. The patient is stable and received IV antibiotics. The patient also received IV furosemide. The patient did better, however, with medical debility, evaluation for skilled care subsequently accepted, the patient was stable. There were a few day waiting for insurance approval and facility approval with bed assign and the patient was discharged. Please review the medication on discharge. MD CHARLES Kirk/LIDIA /[id number]
== END 2019-03-17 15:56 | DRG 291 ==
LOC: ER 02:17 → ERHOLD 04:23 → MED/SURG3 04:50
PROVIDERS: ADMIT Internal Medicine; ATTEND Internal Medicine
DX: I11.0 Hypertensive heart disease with heart failure (principal); J18.9 Pneumonia, unspecified organism; J44.0 Chronic obstructive pulmonary disease with (acute) lower respiratory infection; J44.1 Chronic obstructive pulmonary disease with (acute) exacerbation; I50.33 Acute on chronic diastolic (congestive) heart failure; Z95.0 Presence of cardiac pacemaker; E03.9 Hypothyroidism, unspecified
CPT/HCPCS: 36415; 71045; 71046; 71250; 76604; 80048; 80053; 80202; 81001; 82550; 82553; 83605; 83880; 84484; 85025; 87040; 87086; 93005; 94640; 96367; 96374; 97139; 99285; J0456; J1650; J1940; J2543; J2930; J3370; J7050